=== PATIENT | female | born 1995 | race Caucasian/White ===

== ENCOUNTER 2016-05-18 11:01 | Emergency (ER) | payer OTHER ==
[2016-05-18 11:30] LABS: BILIRUBIN,URINE NEGATIVE (NEGATIVE)
[2016-05-18 11:32] LABS: UA w/ MICROSCOPIC CHARGE YES
[2016-05-18 11:34] LABS: BASOPHILS # (AUTO) 0.1 10^3/uL (0.0-0.1); BASOPHILS % (AUTO) 0.7 %; EOSINOPHILS # (AUTO) 0.2 10^3/uL (0.0-0.7); HGB - HEMOGLOBIN 13.6 g/dL (12.0-16.0); LYMPHOCYTES # (AUTO) 2.5 10^3/uL (1.5-3.5); LYMPHOCYTES % (AUTO) 27.5 %; MEAN CORPUSCULAR HGB CONC 34.1 g/dL (32.0-36.0); MEAN CORPUSCULAR VOLUME 85.2 fL (81.0-99.0); MEAN PLATELET VOLUME 8.2 fL (7.9-10.8); MONOCYTES # (AUTO) 0.6 10^3/uL (0.0-1.0); MONOCYTES % (AUTO) 6.1 %; NEUTROPHILS # (AUTO) 5.9 10^3/uL (1.5-6.6); NEUTROPHILS % (AUTO) 63.7 %; RED CELL DISTRIBUTION WIDTH 12.9 % (12.0-15.0); UNCORRECTED WHITE BLOOD COUNT 9.3 x10^3/uL; WHITE BLOOD COUNT 9.3 x10^3/uL (4.8-10.8)
[2016-05-18 11:37] LABS: HCG UR QUAL NEGATIVE
[2016-05-18 11:39] LABS: UR CULTURE IF IND NOT INDICATED; WBC,URINE 0-3 /HPF (0-5)
--- NOTE | 2016-05-18 11:53 | ED Physician Documentation ---
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 and also at [facility] X 4 has had pelvic exam, blood work, urine, HCG, CT scan, and several sonograms CT neg for appy kidney stones, sono showed a complex right ovarian cyst pelvic neg for PID per records from [facility] to ER today because the pain has been waxing and waning and was severe today Review of Systems Constitutional: denies: Fever Cardiac: denies: Chest pain / pressure Respiratory: denies: Dyspnea GI: reports: Abdominal Pain : denies: Dysuria, Discharge, Vaginal bleeding Endocrine: denies: Easy bruising / bleeding PD PAST MEDICAL HISTORY - Past Medical History Cardiovascular: None Respiratory: None Neuro: None Endocrine/Autoimmune: None GI: None 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 - Past Surgical History Past Surgical History: No /SENIOR MILITARY ANALYST: Other - Present Medications Home Medications: Ambulatory Orders Medication Instructions Recorded Confirmed Ibuprofen 300 mg PO BID 05/18/16 05/18/16 Meloxicam 0 mg PO DAILY 05/18/16 05/18/16 Norgestimate-Ethinyl Estradiol 1 tab PO DAILY 05/18/16 05/18/16 [Ortho Tri-Cyclen Lo Tablet] oxyCODONE/ACET 5/325 [Percocet 5 1 tab PO Q4HR 05/18/16 05/18/16 mg/325 mg] traMADol [Ultram] 50 mg PO Q6H PRN #15 tablet 05/18/16 - Allergies Allergies/Adverse Reactions: Allergies Allergy/AdvReac Type Severity Reaction Status Date / Time latex Allergy Hives Verified 05/18/16 11:05 - Social History Does the pt smoke?: No Smoking Status: Never smoker Does the pt drink ETOH?: No Does the pt have substance abuse?: No - Immunizations Immunizations are current?: Yes - POLST Patient has POLST: No PD ED PE NORMAL - Vitals Vital signs reviewed: Yes - Neck Neck: Supple, no meningeal sign - Cardiac Cardiac: RRR - Respiratory Respiratory: No respiratory distress, Clear bilaterally - Abdomen Abdomen: Soft, Other (mild distension, TTP right low quad without rebound or guarding) - Derm Derm: Normal color - Extremities Extremities: No deformity - Neuro Neuro: Alert and oriented X 3 Results - Vitals Vitals: Vital Signs - 24 hr 05/18/16 05/18/16 11:03 12:33 Temperature 36.3 C L Heart Rate 70 66 Respiratory 18 16 Rate Blood Pressure 144/99 H 117/73 O2 Saturation 99 100 Oxygen O2 Source Room air - Labs Labs: Laboratory Tests 05/18/16 05/18/16 05/18/16 11:20 11:28 11:28 WBC 9.3 RBC 4.70 Hgb 13.6 Hct 40.0 MCV 85.2 MCH 29.0 MCHC 34.1 RDW 12.9 Plt Count 322 MPV 8.2 Neut # 5.9 Lymph # 2.5 Pershing # 0.6 Eos # 0.2 Baso # 0.1 Absolute Nucleated RBC 0.00 Nucleated RBCs 0.0 Sodium 135 Potassium 3.6 Chloride 104 Carbon Dioxide 24 Anion Gap 7.0 BUN 16 Creatinine 0.7 Estimated GFR (MDRD) 105 Glucose 94 Calcium 9.3 Total Bilirubin 0.4 AST 19 ALT 17 Alkaline Phosphatase 70 Total Protein 7.5 Albumin 4.8 Globulin 2.7 Albumin/Globulin Ratio 1.8 Lipase 30 Urine Color YELLOW Urine Clarity CLOUDY Urine pH 6.0 Ur Specific [place] >=1.030 H Urine Protein NEGATIVE Urine Glucose (UA) NEGATIVE Urine Ketones NEGATIVE Urine Occult Blood TRACE-LYSE Urine Nitrite NEGATIVE Urine Bilirubin NEGATIVE Urine Urobilinogen 0.2 (NORMAL) Ur Leukocyte Esterase NEGATIVE Urine RBC 6-10 H Urine WBC 0-3 Ur Squamous Epith Cells MOD Squamous H Urine Bacteria Rare Ur Microscopic Review INDICATED Urine Culture Comments NOT INDICATED Urine HCG, Qual NEGATIVE - Rads (name of study) sono Radiology: Prelim report reviewed (1.4 cm R hemorrhagic cyst s torsion, trace FF ) Departure - Departure Disposition: 01 Home, Self Care Clinical Impression: Ruptured cyst of ovary Condition: Good Instructions: Cyst Ruptured Ovarian Tx Follow-Up: Romy Kearns DO [Provider Admit Priv/Credential] - Prescriptions: traMADol [Ultram] 50 mg PO Q6H PRN #15 tablet PRN Reason: Severe Pain Comments: The cyst is much smaller today and the fluid is reabsorbing. I reviewed your records from [facility] and you had a CT scan there that showed a normal appendix and no kidney stones - and you also had a pelvic exam to check for any infections causing the pain. I have referred you to a SENIOR MILITARY ANALYST specialist and prescribed tramadol for the pain. T Forms: Activity restrictions
[2016-05-18 12:08] LABS: ALBUMIN/GLOBULIN RATIO 1.8 (1.0-2.2); BILIRUBIN,TOTAL 0.4 mg/dL (0.2-1.0); CALCIUM 9.3 mg/dL (8.5-10.3); CREATININE 0.7 mg/dL (0.4-1.0); POTASSIUM 3.6 mmol/L (3.5-5.0); TOTAL PROTEIN 7.5 g/dL (6.7-8.2)
[2016-05-18] MEDS ORDERED: KETOROLAC 60 MG/2 ML VIAL IM STA (12:24)
[2016-05-18] MEDS ORDERED: KETOROLAC 60 MG/2 ML VIAL ONE (12:31)
[2016-05-18 14:12] VITALS: BP 100/62
--- NOTE | 2016-05-18 16:00 | Ultrasound Report ---
PELVIC ULTRASOUND: 05/18/2016 CLINICAL INDICATION: Pain, question cyst rupture or torsion. TECHNIQUE: Transabdominal pelvic ultrasound performed for global evaluation. Transvaginal pelvic ultr asound performed for detailed evaluation. Real-time scanning performed and static images obtained wit h Doppler. FINDINGS: The uterus is retroverted, measuring 7.9 x 4.4 x 4.1 cm. The endometrial echo complex marvin ures 4 mm. No focal myometrial lesion is seen. The right ovary measures 3.5 x 3.3 x 3.2 cm, and conta ins an 1.4 cm hemorrhagic ovarian cyst. Normal ovarian flow is present. The left ovary measures 3.1 x 2.3 x 1.3 cm, and appears unremarkable. Normal ovarian flow is present. Trace free fluid is seen in the cul-de-sac, likely physiologic in a patient of this age. IMPRESSION: AN 1.4 CM HEMORRHAGIC RIGHT OVARIAN CYST. NO EVIDENCE OF OVARIAN TORSION. TRACE FREE FLU ID. JOB #: [id number] EXT JOB #:[id number]
== END 2016-05-18 14:00 | disposition home or self-care (01) ==
LOC: ED 11:01
DX: N83.201 Unspecified ovarian cyst, right side (principal)
CPT/HCPCS: 36415; 76830; 76856; 80053; 81001; 81003; 81025; 83690; 85025; 87086; 93975; 96372; 99283; 99284

== ENCOUNTER 2016-06-27 07:12 | Outpatient (CLI) | payer OTHER | END 2016-06-27 07:13 | disposition critical access hospital (66) | DX: R51 Headache (principal); R42 Dizziness and giddiness; R11.0 Nausea | CPT/HCPCS: A0425; A0429 ==

== ENCOUNTER 2016-06-27 07:30 | Emergency (ER) | payer OTHER ==
[2016-06-27] MEDS ORDERED: KETOROLAC 60 MG/2 ML VIAL IVP STA (08:44)
[2016-06-27] MEDS ORDERED: DEXAMETHASONE 10 MG/ML VIAL PO STA (08:44)
[2016-06-27] MEDS ORDERED: CHERRY SYRUP 10 ML UDC PO ONE (08:47)
[2016-06-27] MEDS ORDERED: DEXAMETHASONE 10 MG/ML VIAL ONE (08:47)
[2016-06-27] MEDS ORDERED: KETOROLAC 30 MG/ML VIAL ONE (08:47)
== END 2016-06-27 11:20 | disposition home or self-care (01) ==
DX: G44.209 Tension-type headache, unspecified, not intractable (principal); Z98.890 Other specified postprocedural states
CPT/HCPCS: 96374; 99284; A9270

== ENCOUNTER 2016-07-03 22:27 | Outpatient (CLI) | payer OTHER | END 2016-07-03 22:28 | disposition critical access hospital (66) | DX: R10.32 Left lower quadrant pain (principal) | CPT/HCPCS: A0425; A0427 ==

== ENCOUNTER 2016-07-03 22:45 | Emergency (ER) | payer OTHER ==
[2016-07-04] MEDS ORDERED: ONDANSETRON 4 MG/2 ML VIAL IVP STA (01:46)
[2016-07-04] MEDS ORDERED: MORPHINE 2 MG/ML SYRINGE IVP STA (01:46)
[2016-07-04] MEDS ORDERED: MORPHINE 2 MG/ML SYRINGE ONE (01:49)
[2016-07-04] MEDS ORDERED: ONDANSETRON 4 MG/2 ML VIAL ONE (01:49)
[2016-07-04] MEDS ORDERED: HYDROmorphone 1 MG/ML SYRINGE IVP STA (03:52)
[2016-07-04] MEDS ORDERED: HYDROmorphone 1 MG/ML SYRINGE ONE (03:59)
== END 2016-07-04 04:59 | disposition home or self-care (01) ==
DX: R10.32 Left lower quadrant pain (principal); N83.202 Unspecified ovarian cyst, left side
CPT/HCPCS: 36415; 76830; 76856; 80053; 83690; 85025; 93976; 96374; 96375; 99284; J1170

== ENCOUNTER 2016-07-07 00:29 | Emergency (ER) | payer OTHER ==
[2016-07-07] MEDS ORDERED: IOPAMIDOL-300 100 ML VIAL IVP ONE (03:59)
== END 2016-07-07 06:31 | disposition home or self-care (01) ==
DX: N83.292 Other ovarian cyst, left side (principal)
CPT/HCPCS: 36415; 74177; 81003; 81025; 85025; 99283; 99284; Q9967

== ENCOUNTER 2016-08-25 09:20 | Day surgery (SDC) | payer OTHER ==
[2016-08-25] MEDS ORDERED: CELECOXIB 100 MG CAPSULE PO ONE (09:22)
[2016-08-25] MEDS ORDERED: ACETAMINOPHEN 1,000 MG/100 ML 100 ML IV ONE (09:23)
[2016-08-25] MEDS ORDERED: SCOPOLAMINE PATCH TOP ONE (09:42)
[2016-08-25] MEDS ORDERED: LACTATED RINGERS 1,000 ML IV ONE (10:08)
[2016-08-25] MEDS ORDERED: LIDOCAINE-MPF 2% 5 ML VIAL IM ONE (11:03)
[2016-08-25] MEDS ORDERED: PROPOFOL 200 MG/20 ML VIAL IVP ONE (11:03)
[2016-08-25] MEDS ORDERED: ONDANSETRON 4 MG/2 ML VIAL IVP ONE (11:03)
[2016-08-25] MEDS ORDERED: MIDAZOLAM 2 MG/2 ML VIAL IVP ONE (11:03)
[2016-08-25] MEDS ORDERED: fentaNYL 100 MCG/2 ML VIAL IVP ONE (11:03)
[2016-08-25] MEDS ORDERED: DEXAMETHASONE 4 MG/ML VIAL IVP ONE (11:03)
[2016-08-25] MEDS ORDERED: MORPHINE PF 5 MG/10 ML AMP EPI ONE ×2 (11:47→12:20)
[2016-08-25] MEDS ORDERED: ROPIVACAINE 0.2% PF 10 ML VIAL EPI ONE ×2 (11:47→12:20)
[2016-08-25] MEDS ORDERED: BUPIVACAINE 0.5% PF 10 ML VIAL IM ONE ×2 (11:47)
[2016-08-25] MEDS ORDERED: EPINEPHrine 1 MG/ML AMP IVP ONE (11:48)
[2016-08-25] MEDS: HYDROmorphone 1 MG/ML SYRINGE ONE ×3 (13:00→13:15)
[2016-08-25] MEDS ORDERED: oxyCOD/ACETAMIN 5 MG/325 MG TABLET PO ONE (13:52)
[2016-08-25 14:12] VITALS: BP 133/68
--- NOTE | 2016-08-27 07:25 | OPERATIVE REPORT ---
DATE OF SURGERY: 08/25/2016 00:00:00 IDENTIFICATION NUMBER: [id number] OR ([id number] as stated at the end) OPERATIVE SURGEON: Commander Anthony Willard, [facility] N PREOPERATIVE DIAGNOSIS: Right knee fat pad syndrome. OPERATIVE DIAGNOSIS: Right knee fat pad syndrome and plica impingement. OPERATIVE PROCEDURE PERFORMED: Right knee arthroscopy with arthroscopic fat pad and medial plica resection. ANESTHESIA PROVIDER: Leonie Paz MD ANESTHESIA TECHNIQUE: General anesthesia via LMA with local injected into the incision sites. CIRCULATING NURSES: Jorden Reyna RN; and Ilya Lopez RN GLUE SIZE 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: Ms. Berta Johnson; additional photo technician Ms. Annette Reyna. START TIME: 1145 hours. CLOSE TIME: 1227 hours. INJECTED SUBSTANCES INCLUDED: Ropivacaine 0.2% with Duramorph morphine 5 mg/mL. Additional injected substances include Marcaine 0.5% plain. IV antibiotics - Ancef 2 grams. IV FLUIDS: 650 mL lactated Ringer's. ESTIMATED BLOOD LOSS: Less than 5 mL. PREOPERATIVE PREP: Hibiclens, followed by ChloraPrep applied to the exposed operative skin after draping. The patient did have MARIELOS hose and foot pump in place and functioning on the left lower extremity prior to induction of anesthesia. FINAL COUNTS: Correct. COMPLICATIONS: None. 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 The patient was initially seen, counseled, and treated by my partner, Dr. Chiu; however, due to her status, she has ask me to continue with the patient's care. After workup and the decision was made to take the patient to the operating room for fat pad resection after the patient was counseled as far as the risks, benefits, alternatives, and expectations to both operative versus nonoperative management. The patient preferred to undergo surgery. On the day of surgery, she identified the operative site to be her right knee, which was initialed by the operative surgeon. She located the area of the pain to be both on the medial and lateral aspect of the patellar tendon and joint line. She then had a negative urine test, was taken back to the operating room, placed in the supine position and, after adequate anesthetic control with general anesthesia via LMA, she had her bony prominences well- padded and then had a tourniquet placed to the right upper thigh. The patient's right lower extremity then underwent examination under anesthesia , which revealed full passive range of motion, stable anterior and posterior drawer, stable Loretta's, negative pivot shift or glide, negative stress at 30 and 90 degrees of varus valgus. The patient then underwent a Hibiclens prep and standard sterile draping, followed by a surgical pause to confirm the proper patient, procedure, operative site, position, prophylactic antibiotics, and surgical initials in accordance with the [place] Protocol Procedure Verification. Following this, additional ChloraPrep was applied to the exposed operative skin and allowed to dry for 3 minutes. Bony landmarks were outlined with a skin marker. The surgery began with a stab incision over the anterolateral knee and insertion of the arthroscope into the medial aspect of the suprapatellar pouch, where a medial plica was identified. The medial gutter was then entered. There was some mild synovitis and loose bodies. The area of the plica that had been rubbing over the medial shoulder of the trochlea was identified. The medial compartment was then entered under a valgus stress. Under direct visualization, a spinal needle was inserted to establish location of the anteromedial portal The probe was then inserted, and probing the medial meniscus revealed a normal- appearing meniscus. The knee was taken through a full range of motion. There was no sign of medial femoral condyle or medial tibial plateau chondromalacia. The femoral notch was entered. There was no sign of ACL tear or insufficiency. The lateral compartment was entered under a figure 4 position. There were no signs of lateral meniscus tear or insufficiency. The knee was taken through a full range of motion. There were no signs of lateral femoral condyle or lateral tibial plateau chondromalacia. The posterolateral corner was then entered and visualized. There were no signs of posterolateral corner injury. Under direct visualization, the medial plica was then resected. Further fat pad resection was performed in order to enter the patellofemoral articulation, revealing a normal-appearing medial, central, and lateral patellar chondral facet surface and patellofemoral tracking and articulation. The spinal needle was then placed through the area the patient had marked as her pain sites and her fat pad. This area was then resected down to the posterior fibers of the patellar tendon. The instruments were then removed from the patient's knee, and fluid was allowed to extravasate out. The wounds were then closed with 3-0 Monocryl. The knee was then injected with 5 mg of Duramorph morphine and 5 mL of 0.2% ropivacaine. The wounds were then covered with Mastisol, Steri-Strips, Xeroform , sterile plain gauze, sterile Webril, and David bandage from mid foot to mid thigh, followed by a cold therapy cuff. The patient's family, her mother and grandmother, were met in the surgical waiting room and advised of the intraoperative findings, procedure performed, and postop instructions. I am just being informed now that due to postoperative pain, Anesthesia is performing a femoral nerve block on this patient in the recovery room. Edited and electronically signed: CDR Anthony Willard MC, USN [id number] JOB #: [id number] EXT JOB #:[id number] SAMI
== END 2016-08-25 09:21 | disposition home or self-care (01) ==
LOC: SDS 09:20
PROVIDERS: ATTEND Orthopaedic Surgery
PROC: 0SBC4ZZ Excision of Right Knee Joint, Percutaneous Endoscopic Approach (ICD-10-PCS; principal; 2016-08-25 12:15)
DX: M79.4 Hypertrophy of (infrapatellar) fat pad (principal); M25.861 Other specified joint disorders, right knee
CPT/HCPCS: 29875; 84703; A9270; J0131; J1170; J3490; J7120

== ENCOUNTER 2016-10-13 06:53 | Emergency (ER) | payer OTHER ==
[2016-10-13 07:00] VITALS: BP 123/80
--- NOTE | 2016-10-13 07:19 | ED Physician Documentation ---
PD HPI ABD PAIN - Stated complaint Stated Complaint: POST OP CHECK/FEMALE - Chief complaint Chief Complaint: Abd Pain - History obtained from History obtained from: Patient - History of Present Illness Timing - onset: Yesterday Quality: Aching - Additional information Additional information: This patient is a 21-year-old female with a history of endometriosisStatus post laparoscopic lysis of adhesionsYesterday. She presents with a chief complaint of inability to urinate and also has lower urinary symptoms of dysuria, hesitancy, and frequency.She also complains of abdominal bruising near her umbilicus. She denies any complaints of generalized abdominal pain, nausea, vomiting, constipation diarrhea. There is no complaints of chest pain or shortness of breath. She is currently taking Percocet and ibuprofen for pain. She is unsure whether they placed a urinary catheter during the procedure yesterday. She normally does not have any difficulty urinating and had no difficulty prior to the surgery. 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 : Other HEENT: Other Musculoskeletal: Other Derm: None - Past Surgical History Past Surgical History: Yes Ortho: Arthroscopic surgery /TRANSMISSION ASSEMBLER: Other - Present Medications Home Medications: Ambulatory Orders Medication Instructions Recorded Confirmed Phenazopyridine HCl [Pyridium] 200 mg PO TID PRN #10 tablet 10/13/16 oxyCODONE/ACET 5/325 [Percocet 5 1 - 2 tab PO Q4HR PRN 10/13/16 10/13/16 mg/325 mg] - Allergies Allergies/Adverse Reactions: Allergies Allergy/AdvReac Type Severity Reaction Status Date / Time latex Allergy Hives Verified 08/08/16 11:59 tramadol Allergy Unknown Verified 08/25/16 09:32 - Social History Does the pt smoke?: No Smoking Status: Never smoker Does the pt drink ETOH?: No Does the pt have substance abuse?: No - Immunizations Immunizations are current?: Yes - POLST Patient has POLST: No PD ED PE NORMAL - General General: Alert and oriented X 3, No acute distress, Well developed/nourished - HEENT HEENT: Atraumatic, PERRL - Neck Neck: Supple, no meningeal sign - Cardiac Cardiac: RRR, No murmur - Respiratory Respiratory: No respiratory distress - Abdomen Abdomen: Normal bowel sounds, Non tender, Non distended, No organomegaly, Other (Superficial abdominal bruising without hematomas) - Derm Derm: Warm and dry - Neuro Neuro: Alert and oriented X 3 - Psych Psych: Normal mood, Normal affect Results - Vitals Vitals: Vital Signs - 24 hr 10/13/16 06:57 Temperature 36.7 C Heart Rate 70 Respiratory 16 Rate Blood Pressure 123/80 O2 Saturation 98 Oxygen O2 Source Room air - Labs Labs: Laboratory Tests 10/13/16 07:30 Urine Color YELLOW Urine Clarity CLEAR Urine pH 6.5 Ur Specific [place] 1.010 Urine Protein NEGATIVE Urine Glucose (UA) NEGATIVE Urine Ketones NEGATIVE Urine Occult Blood TRACE-LYSE Urine Nitrite NEGATIVE Urine Bilirubin NEGATIVE Urine Urobilinogen 0.2 (NORMAL) Ur Leukocyte Esterase NEGATIVE Ur Microscopic Review NOT INDICATED Urine Culture Comments NOT INDICATED PD MEDICAL DECISION MAKING - ED course Complexity details: reviewed old records, reviewed results, re-evaluated patient , d/w patient ED course: Patient is well-appearing 21-year-old female presents with lower urinary symptoms status post laparoscopic lysis of adhesions yesterday. She is otherwise doing well she has mild increase urine volume on bladder scanning of 400 cc but has demonstrated the ability to urinate with some difficulty. Urine was tested and appears normal. We will add Pyridium to help with some of her lower urinary symptoms that are probably more related to trauma from instrumentation. Departure - Departure Disposition: 01 Home, Self Care Clinical Impression: Dysuria Condition: Good Instructions: ED Dysuria Uncertain Cause Follow-Up: FRANCIS PEDRO [Primary Care Provider] - Within 1 week Prescriptions: Phenazopyridine HCl [Pyridium] 200 mg PO TID PRN #10 tablet PRN Reason: dysuria Forms: Activity restrictions
[2016-10-13] MEDS ORDERED: PHENAZOPYRIDINE 100 MG TABLET PO STA (07:43)
[2016-10-13] MEDS ORDERED: PHENAZOPYRIDINE 100 MG TABLET PO ONE (07:52)
[2016-10-13 08:07] LABS: BILIRUBIN,URINE NEGATIVE (NEGATIVE); PH,URINE 6.5 PH (5.0-7.5)
[2016-10-13 08:12] LABS: UA CHARGE (STRIP ONLY) YES; UR CULTURE IF IND NOT INDICATED
== END 2016-10-13 08:33 | disposition home or self-care (01) ==
LOC: ED 06:53
DX: R30.0 Dysuria (principal); Z98.890 Other specified postprocedural states
CPT/HCPCS: 51798; 81003; 99283; A9270; 81001; 87086

== ENCOUNTER 2016-10-14 21:43 | Emergency (ER) | payer OTHER ==
--- NOTE | 2016-10-14 22:24 | ED Physician Documentation ---
PD HPI ABD PAIN - Stated complaint Stated Complaint: FEMALE - Chief complaint Chief Complaint: General - History obtained from History obtained from: Patient - History of Present Illness Timing - onset: How many days ago (2) Timing - duration: Days (2) Timing - details: Abrupt onset (she had laparoscopic surgery for pelvic pain eval with Dx of endometriosis and has some scar tissue scraping and ? endometrioma ablation done at that time. There was bruising infraumbilical. She is having pain mainly at bruising area. Some nausea but no vomiting. Had had 5 percocet and has taken them. No other meds.) Quality: Aching, Stabbing, Pain Location: Periumbilical Improved by: Laying still. No: Eating Worsened by: Moving, Palpation. No: Eating, Breathing Associated symptoms: Nausea, Loss of appetite. No: Fever, Vomiting, Diarrhea, Constipation, Dysuria, Hematuria Similar symptoms before: Has not had sx before Recently seen: Emergency Dept (yesterday with some urinary hesitancy and had some retention 400 ml but voided without greenwood and was doing okay. She feels she is urinating okay today.), Surgery (laparoscopic in [place] by SECOND SHIFT SUPERVISOR 2 days ago, see above.) Review of Systems Constitutional: reports: Myalgias. denies: Fever, Chills Nose: denies: Rhinorrhea / runny nose, Congestion Throat: denies: Sore throat Cardiac: denies: Chest pain / pressure Respiratory: denies: Dyspnea GI: reports: Nausea. denies: Vomiting, Diarrhea : reports: Hesitancy (had some trouble urinating yesterday and had bladder scanner showing 400 ml, but then voided okay here in ED.), Vaginal bleeding ( mild, with some clear/mucous component, since the surgery). 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), Ovarian cysts : Other HEENT: Other Musculoskeletal: Other Derm: None - Past Surgical History Past Surgical History: Yes Ortho: Arthroscopic surgery /SECOND SHIFT SUPERVISOR: Other - Present Medications Home Medications: Ambulatory Orders Medication Instructions Recorded Confirmed Phenazopyridine HCl [Pyridium] 200 mg PO TID PRN #10 tablet 10/13/16 oxyCODONE/ACET 5/325 [Percocet 5 1 - 2 tab PO Q4HR PRN 10/13/16 10/13/16 mg/325 mg] Naproxen 375 mg PO BID #20 tablet 10/15/16 Oxycodone HCl/Acetaminophen 1 each PO Q6H PRN #15 tablet 10/15/16 [Percocet 5-325 mg Tablet] - Allergies Allergies/Adverse Reactions: Allergies Allergy/AdvReac Type Severity Reaction Status Date / Time latex Allergy Hives Verified 08/08/16 11:59 tramadol Allergy Unknown Verified 08/25/16 09:32 - Social History Does the pt smoke?: No Smoking Status: Never smoker Does the pt drink ETOH?: No Does the pt have substance abuse?: No - Immunizations Immunizations are current?: Yes - POLST Patient has POLST: No PD ED PE NORMAL - Vitals Vital signs reviewed: Yes - General General: Alert and oriented X 3, No acute distress, Well developed/nourished - Neck Neck: Supple, no meningeal sign, No adenopathy - Cardiac Cardiac: RRR, No murmur - Respiratory Respiratory: Clear bilaterally - Abdomen Abdomen: Normal bowel sounds, Soft, Non distended, No organomegaly, Other (the scope sites all appear okay without signs of infection. The infraumbilical site has bruising below that got bigger in area since yesterday. ) Results - Vitals Vitals: Vital Signs - 24 hr 10/14/16 10/15/16 21:49 00:52 Temperature 36.7 C Heart Rate 79 72 Respiratory 18 16 Rate Blood Pressure 142/92 H 135/90 H O2 Saturation 99 99 Oxygen O2 Source Room air - Labs Labs: Laboratory Tests 10/14/16 10/14/16 23:29 23:45 WBC 11.3 H RBC 4.68 Hgb 13.8 Hct 40.9 MCV 87.4 MCH 29.6 MCHC 33.8 RDW 13.2 Plt Count 345 MPV 7.4 L Neut # 5.2 Lymph # 5.0 H [place] # 0.8 Eos # 0.2 Baso # 0.1 Absolute Nucleated RBC 0.01 Nucleated RBCs 0.0 Urine Color YELLOW Urine Clarity CLEAR Urine pH 7.5 Ur Specific [place] 1.015 Urine Protein NEGATIVE Urine Glucose (UA) NEGATIVE Urine Ketones NEGATIVE Urine Occult Blood LARGE H Urine Nitrite NEGATIVE Urine Bilirubin NEGATIVE Urine Urobilinogen 0.2 (NORMAL) Ur Leukocyte Esterase NEGATIVE Urine RBC 0-5 Urine WBC 0-3 Ur Squamous Epith Cells FEW Squamous Urine Bacteria Rare Ur Microscopic Review INDICATED Urine Culture Comments NOT INDICATED PD MEDICAL DECISION MAKING - ED course Complexity details: reviewed results, considered differential (postoperative bruising infraumbilical, but bedside U/S I did not see a hematoma per se, nor any pelvic free fluid. Presume tender from the surgery and bruising. No signs of infection. WBC slight elevated but no fever and skin/wounds do not look infected. Will add NSAID and Rx more pain emds. She is only 2 days post- procedure, so reasonable perhaps to still be hurting. ), d/w patient Departure - Departure Disposition: 01 Home, Self Care Clinical Impression: Postoperative wound hematoma, Postoperative abdominal pain Condition: Stable Record reviewed to determine appropriate education?: Yes Instructions: ED Post Op Pain, ED Wound Check Post Op No Infec Follow-Up: FRANCIS PEDRO [Primary Care Provider] - Prescriptions: Naproxen 375 mg PO BID #20 tablet Oxycodone HCl/Acetaminophen [Percocet 5-325 mg Tablet] 1 each PO Q6H PRN #15 tablet PRN Reason: Pain Comments: At this point, the area does not seem infected. Presume inflammation and pain from the bruising. I did not see a blood collection/hematoma per se that would need draining/etc. Naproxen twice daily. Add Tylenol or Percocet as needed for pain. Recheck in 2-3 days with PMD. Return if redness, fever, vomiting ( increased bruising size is okay). Discharge Date/Time: 10/15/16 00:54
[2016-10-14] MEDS ORDERED: oxyCOD/ACETAMIN 5 MG/325 MG TABLET PO STA (23:04)
[2016-10-14] MEDS ORDERED: NAPROXEN 250 MG TABLET PO STA (23:05)
[2016-10-14] MEDS ORDERED: oxyCOD/ACETAMIN 5 MG/325 MG TABLET PO ONE (23:08)
[2016-10-14] MEDS ORDERED: NAPROXEN 250 MG TABLET PO ONE (23:08)
[2016-10-14 23:36] LABS: BASOPHILS # (AUTO) 0.1 10^3/uL (0.0-0.1); BASOPHILS % (AUTO) 0.9 %; EOSINOPHILS # (AUTO) 0.2 10^3/uL (0.0-0.7); EOSINOPHILS % (AUTO) 2.1 %; HCT - HEMATOCRIT 40.9 % (37.0-47.0); HGB - HEMOGLOBIN 13.8 g/dL (12.0-16.0); LYMPHOCYTES % (AUTO) 44.4 %; MEAN CORPUSCULAR HEMOGLOBIN 29.6 pg (27.0-31.0); MEAN CORPUSCULAR HGB CONC 33.8 g/dL (32.0-36.0); MEAN CORPUSCULAR VOLUME 87.4 fL (81.0-99.0); MEAN PLATELET VOLUME 7.4 fL (7.9-10.8); MONOCYTES # (AUTO) 0.8 10^3/uL (0.0-1.0); MONOCYTES % (AUTO) 6.7 %; NEUTROPHILS # (AUTO) 5.2 10^3/uL (1.5-6.6); NEUTROPHILS % (AUTO) 45.9 %; RED BLOOD COUNT 4.68 10^6/uL (4.20-5.40); RED CELL DISTRIBUTION WIDTH 13.2 % (12.0-15.0); UNCORRECTED WHITE BLOOD COUNT 11.3 x10^3/uL; WHITE BLOOD COUNT 11.3 x10^3/uL (4.8-10.8)
[2016-10-14 23:50] LABS: BILIRUBIN,URINE NEGATIVE (NEGATIVE); PH,URINE 7.5 PH (5.0-7.5)
[2016-10-15 00:08] LABS: UA w/ MICROSCOPIC CHARGE YES; WBC,URINE 0-3 /HPF (0-5)
[2016-10-15 00:09] LABS: UR CULTURE IF IND NOT INDICATED
[2016-10-15] MEDS ORDERED: oxyCODONE/ACET 5/325 Prepack 4 PO STA (00:39)
[2016-10-15] MEDS ORDERED: oxyCODONE/ACET 5/325 Prepack 4 PO ONE (00:41)
[2016-10-15 00:52] VITALS: BP 135/90
== END 2016-10-15 00:54 | disposition home or self-care (01) ==
LOC: ED 21:43
DX: N99.840 Postprocedural hematoma of a genitourinary system organ or structure following a genitourinary system procedure (principal); G89.18 Other acute postprocedural pain; N80.9 Endometriosis, unspecified
CPT/HCPCS: 36415; 81001; 85025; 99283; 99284; A9270; 81003; 87086

== ENCOUNTER 2016-11-02 12:10 | Emergency (ER) | payer OTHER ==
[2016-11-02] MEDS ORDERED: ACETAMINOPHEN 1,000 MG/100 ML 100 ML IV STA (12:36)
[2016-11-02] MEDS ORDERED: KETOROLAC 60 MG/2 ML VIAL IVP STA (12:36)
--- NOTE | 2016-11-02 12:39 | ED Physician Documentation ---
History of Present Illness - Stated complaint Stated Complaint: ABD PAIN - Chief complaint Chief Complaint: Abd Pain - Additonal information Additional information: hx from pt 21 f denies preg LMP now followed by CATHERINE BANKER MASON had surgery at [facility] 3 weeks ago (laparoscopic, dx endometriosis) was seen here post op twice for pain and urinary retention and bruising return to [facility] again to day for severe pelvic pain and unable to urinate no vag dc no fever has not called her BANKER MASON about this today Review of Systems Constitutional: denies: Fever, Chills Throat: denies: Sore throat Cardiac: denies: Chest pain / pressure Respiratory: denies: Dyspnea GI: reports: Abdominal Pain. denies: Nausea, Vomiting, Diarrhea : reports: LMP (now), Vaginal bleeding Endocrine: denies: Easy bruising / bleeding Immunocompromised: denies: Immunocompromised PD PAST MEDICAL HISTORY - Past Medical History Cardiovascular: None Respiratory: None Neuro: None Endocrine/Autoimmune: None GI: None BANKER MASON: Endometriosis, Ovarian cysts : Other HEENT: Other Musculoskeletal: Other Derm: None Other Past Medical History: TMJ syndrome - Past Surgical History Past Surgical History: Yes Ortho: Arthroscopic surgery /BANKER MASON: Other - Present Medications Home Medications: Ambulatory Orders Medication Instructions Recorded Confirmed Indomethacin [Indocin] 25 mg PO BIDWM #20 capsule 11/02/16 - Allergies Allergies/Adverse Reactions: Allergies Allergy/AdvReac Type Severity Reaction Status Date / Time latex Allergy Hives Verified 08/08/16 11:59 tramadol Allergy Unknown Verified 08/25/16 09:32 - Social History Does the pt smoke?: No Smoking Status: Never smoker Does the pt drink ETOH?: No Does the pt have substance abuse?: No - Immunizations Immunizations are current?: Yes - POLST Patient has POLST: No PD ED PE NORMAL - Vitals Vital signs reviewed: Yes - Cardiac Cardiac: RRR - Respiratory Respiratory: No respiratory distress, Clear bilaterally - Abdomen Abdomen: Soft, Other (TTP lower abd s rebound or guarding, surgical incisions healing well) Results - Vitals Vitals: Vital Signs - 24 hr 11/02/16 11/02/16 12:12 14:10 Temperature 36.0 C L Heart Rate 80 63 Respiratory 18 16 Rate Blood Pressure 145/106 H 123/64 O2 Saturation 99 100 Oxygen O2 Source Room air - Labs Labs: Laboratory Tests 11/02/16 11/02/16 11/02/16 12:35 12:35 13:45 WBC 11.7 H RBC 4.76 Hgb 14.0 Hct 41.3 MCV 86.8 MCH 29.4 MCHC 33.8 RDW 13.3 Plt Count 346 MPV 8.1 Neut # 7.6 H Lymph # 3.0 Page # 0.8 Eos # 0.2 Baso # 0.1 Absolute Nucleated RBC 0.00 Nucleated RBCs 0.0 Sodium 136 Potassium 3.5 Chloride 103 Carbon Dioxide 26 Anion Gap 7.0 BUN 14 Creatinine 0.9 Estimated GFR (MDRD) 78 L Glucose 92 Calcium 9.3 Total Bilirubin 0.5 AST 103 H ALT 52 Alkaline Phosphatase 79 Total Protein 7.1 Albumin 4.5 Globulin 2.6 Albumin/Globulin Ratio 1.7 Lipase 19 L Urine Color YELLOW Urine Clarity CLEAR Urine pH 6.0 Ur Specific [place] 1.020 Urine Protein NEGATIVE Urine Glucose (UA) NEGATIVE Urine Ketones 15 H Urine Occult Blood MODERATE H Urine Nitrite NEGATIVE Urine Bilirubin NEGATIVE Urine Urobilinogen 0.2 (NORMAL) Ur Leukocyte Esterase NEGATIVE Urine RBC 11-25 H Urine WBC 0-3 Ur Squamous Epith Cells MOD Squamous H Urine Bacteria Rare Urine Mucus Few Strands Ur Microscopic Review INDICATED Urine Culture Comments NOT INDICATED Urine HCG, Qual NEGATIVE - Rads (name of study) pelvic sono Radiology: See rad report (mod fluid, kristopher ovarian follicles, nl ovarian flow, nl uterus) Departure - Departure Disposition: 01 Home, Self Care Clinical Impression: Pelvic pain, Endometriosis Condition: Good Instructions: ED Endometritis Non Obstetric Prescriptions: Indomethacin [Indocin] 25 mg PO BIDWM #20 capsule Comments: Your labs and urine tests were fine The ultrasound did not show any ovarian cysts. There was a littl bit more than normal fluid in your pelvis - it does not look like blood, this may be due to your recent surgery or due to your endometriosis Recommend a NSAID for pain - you can try indocin as it is sometimes more effective than motrin And please follow up with your specialist at [facility] within the next week as he/she will want to know if you are having problems after surgery Forms: Activity restrictions
[2016-11-02 12:55] LABS: BASOPHILS # (AUTO) 0.1 10^3/uL (0.0-0.1); EOSINOPHILS # (AUTO) 0.2 10^3/uL (0.0-0.7); EOSINOPHILS % (AUTO) 1.7 %; HCT - HEMATOCRIT 41.3 % (37.0-47.0); LYMPHOCYTES % (AUTO) 25.9 %; MEAN CORPUSCULAR HEMOGLOBIN 29.4 pg (27.0-31.0); MEAN CORPUSCULAR HGB CONC 33.8 g/dL (32.0-36.0); MEAN CORPUSCULAR VOLUME 86.8 fL (81.0-99.0); MEAN PLATELET VOLUME 8.1 fL (7.9-10.8); MONOCYTES # (AUTO) 0.8 10^3/uL (0.0-1.0); MONOCYTES % (AUTO) 6.5 %; NEUTROPHILS # (AUTO) 7.6 10^3/uL (1.5-6.6); NEUTROPHILS % (AUTO) 64.9 %; RED BLOOD COUNT 4.76 10^6/uL (4.20-5.40); RED CELL DISTRIBUTION WIDTH 13.3 % (12.0-15.0); UNCORRECTED WHITE BLOOD COUNT 11.7 x10^3/uL; WHITE BLOOD COUNT 11.7 x10^3/uL (4.8-10.8)
[2016-11-02 13:05] LABS: ALBUMIN/GLOBULIN RATIO 1.7 (1.0-2.2); BILIRUBIN,TOTAL 0.5 mg/dL (0.2-1.0); CALCIUM 9.3 mg/dL (8.5-10.3); CREATININE 0.9 mg/dL (0.4-1.0); POTASSIUM 3.5 mmol/L (3.5-5.0); TOTAL PROTEIN 7.1 g/dL (6.7-8.2)
[2016-11-02 13:51] LABS: BILIRUBIN,URINE NEGATIVE (NEGATIVE)
[2016-11-02 13:56] LABS: HCG UR QUAL NEGATIVE; UA w/ MICROSCOPIC CHARGE YES
[2016-11-02 14:02] LABS: UR CULTURE IF IND NOT INDICATED; WBC,URINE 0-3 /HPF (0-5)
[2016-11-02 14:10] VITALS: BP 123/64
--- NOTE | 2016-11-02 17:15 | Ultrasound Report ---
PELVIC ULTRASOUND: 11/02/2016 CLINICAL INDICATION: Severe pelvic pain, history of recent laparoscopic surgery. TECHNIQUE: Transabdominal pelvic ultrasound performed for global evaluation. Transvaginal pelvic ul trasound performed for detailed evaluation. Real-time scanning performed with Doppler and static daniel ges obtained. The uterus is retroverted, measuring 7.1 x 4.7 x 3.2 cm. The endometrial echo complex measures 8 mm. No focal myometrial lesion is present. The right ovary measures 4.7 x 3.2 x 3.0 cm, and demonstrates small follicles. The left ovary measur es 3.8 x 1.9 x 1.7 cm, and demonstrates small follicles. Both ovaries demonstrate normal flow. A mo derate amount of free fluid is noted in the cul-de-sac. IMPRESSION: MODERATE AMOUNT OF FREE FLUID IN THE CUL-DE-SAC. NORMAL BILATERAL OVARIAN FLOW, WITH MU LTIPLE BILATERAL FOLLICLES. JOB #: [id number] EXT JOB #:[id number]
== END 2016-11-02 15:19 | disposition home or self-care (01) ==
LOC: ED 12:10
DX: R10.2 Pelvic and perineal pain (principal); N80.9 Endometriosis, unspecified; Z98.890 Other specified postprocedural states; Z87.42 Personal history of other diseases of the female genital tract
CPT/HCPCS: 36415; 51798; 76830; 76856; 80053; 81001; 81025; 83690; 85025; 93975; 96365; 96375; 99283; J0131; 81003; 87086

== ENCOUNTER 2016-12-19 21:30 | Emergency (ER) | payer OTHER ==
[2016-12-19] MEDS ORDERED: HYDROmorphone 1 MG/ML SYRINGE IM STA (22:19)
--- NOTE | 2016-12-19 22:21 | ED Physician Documentation ---
History of Present Illness - Stated complaint Stated Complaint: MOUTH BLEED - Chief complaint Chief Complaint: General - History obtained from History obtained from: Patient - History of Present Illness Timing: Other (She had a left-sided condylotomy yesterday for TMJ by Dr. Mckeon in [place]. 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, Ovarian cysts : Other HEENT: Other Musculoskeletal: Other Derm: None - Past Surgical History Past Surgical History: Yes Ortho: Knee replacement, Arthroscopic surgery /INVESTOR RELATIONS ANALYST: Other - Present Medications Home Medications: Ambulatory Orders Medication Instructions Recorded Confirmed Acetaminophen [Children's 30 ml PO DAILY 12/19/16 12/19/16 Acetaminophen] Amoxicillin/Potassium Clav 1 applic PO DAILY 12/19/16 12/19/16 [Amox-Clav 250-62.5 mg/5 ml Aubrie] Bismuth Subsalicylate 1 tab PO DAILY 12/19/16 12/19/16 [Pepto-Bismol] Ibuprofen 30 ml PO Q6H 12/19/16 12/19/16 Oxycodone HCl 15 ml PO Q4H 12/19/16 12/19/16 PrednisoLONE [Prelone] 20 ml PO DAILY #100 ml 12/19/16 - Allergies Allergies/Adverse Reactions: Allergies Allergy/AdvReac Type Severity Reaction Status Date / Time latex Allergy Hives Verified 12/19/16 21:52 tramadol Allergy Unknown Verified 12/19/16 21:52 - Social History Does the pt smoke?: No Smoking Status: Never smoker Does the pt drink ETOH?: No Does the pt have substance abuse?: No - Immunizations Immunizations are current?: Yes - POLST Patient has POLST: No PD ED PE NORMAL - Vitals Vital signs reviewed: Yes - General General: Alert and oriented X 3, No acute distress - HEENT HEENT: Other (She is pretty swollen over the left jaw and her jaws wired shut. Intraorally I do not see any bleeding or abnormality.) - Neck Neck: Supple, no meningeal sign, No bony TTP - Neuro Neuro: Alert and oriented X 3, Normal speech - Psych Psych: Normal mood, Normal affect Results - Vitals Vitals: Vital Signs - 24 hr 12/19/16 21:49 Temperature 36.8 C Heart Rate 58 L Respiratory 16 Rate Blood Pressure 124/83 H O2 Saturation 99 Oxygen O2 Source Room air PD MEDICAL DECISION MAKING - ED course ED course: I spoke with her oral surgeon by phone who recommended wrapping her face with a pressure dressing which was done and also starting her on steroids. She will see him tomorrow. Departure - Departure Disposition: 01 Home, Self Care Clinical Impression: Post-operative pain Condition: Good Record reviewed to determine appropriate education?: Yes Prescriptions: PrednisoLONE [Prelone] 20 ml PO DAILY #100 ml Comments: You can take 20 mL of liquid oxycodone every 6 hours as needed for pain. Return if worse. Follow-up with Dr. Mckeon tomorrow. Your blood pressure was elevated today on check into the emergency department. This does not mean that you have hypertension, it is a common phenomenon to come to the emergency department and have elevated blood pressure. I recommend that she see your primary care physician within the week to have it rechecked when you are feeling better.
[2016-12-19] MEDS ORDERED: DEXAMETHASONE 10 MG/ML VIAL PO STA (22:30)
[2016-12-19] MEDS ORDERED: HYDROmorphone 1 MG/ML SYRINGE ONE (22:34)
[2016-12-19] MEDS ORDERED: DEXAMETHASONE 10 MG/ML VIAL ONE (22:35)
[2016-12-19 22:55] VITALS: BP 114/77
== END 2016-12-19 23:00 | disposition home or self-care (01) ==
LOC: ED 21:30
DX: G89.18 Other acute postprocedural pain (principal); Z96.659 Presence of unspecified artificial knee joint
CPT/HCPCS: 96372; 99283; J1170

== ENCOUNTER 2016-12-20 22:37 | Emergency (ER) | payer OTHER ==
--- NOTE | 2016-12-21 01:30 | ED Physician Documentation ---
History of Present Illness - Stated complaint Stated Complaint: MOUTH PX - Chief complaint Chief Complaint: General - History obtained from History obtained from: Patient - History of Present Illness Timing: Today Pain level now: 8 Worsened by: palpation - Additonal information Additional information: underwent OMFS procedure few days ago for TMJ (left), presented to ED last night for increasing pain and swelling, followed up with OMFS today, had xrays and rx changed from liquid oxycodone to liquid hydromorphone. she presents at this time due to increasing swelling and pain left jaw which is not adequately controlled by her liquid hydromorphone. 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, Ovarian cysts : Other HEENT: Other Musculoskeletal: Other Derm: None - Past Surgical History Past Surgical History: Yes Ortho: Knee replacement, Arthroscopic surgery /SPRING REPAIRER HELPER HAND: Other - Present Medications Home Medications: Ambulatory Orders Medication Instructions Recorded Confirmed Acetaminophen [Children's 30 ml PO DAILY 12/19/16 12/20/16 Acetaminophen] Amoxicillin/Potassium Clav 1 applic PO DAILY 12/19/16 12/20/16 [Amox-Clav 250-62.5 mg/5 ml Aubrie] Bismuth Subsalicylate 1 tab PO DAILY 12/19/16 12/20/16 [Pepto-Bismol] Ibuprofen 30 ml PO Q6H 12/19/16 12/20/16 Oxycodone HCl 15 ml PO Q4H 12/19/16 12/20/16 PrednisoLONE [Prelone] 20 ml PO DAILY #100 ml 12/19/16 12/20/16 - Allergies Allergies/Adverse Reactions: Allergies Allergy/AdvReac Type Severity Reaction Status Date / Time latex Allergy Hives Verified 12/20/16 22:47 tramadol Allergy Unknown Verified 12/20/16 22:47 - Social History Does the pt smoke?: No Smoking Status: Never smoker Does the pt drink ETOH?: No Does the pt have substance abuse?: No - Immunizations Immunizations are current?: Yes - POLST Patient has POLST: No PD ED PE NORMAL - Vitals Vital signs reviewed: Yes - General General: Alert and oriented X 3, No acute distress, Well developed/nourished - HEENT HEENT: Moist mucous membranes, Other (maxillo-mandibular fixation device and wires in place) - Neck Neck: Supple, no meningeal sign PD ED PE EXPANDED - HEENT HEENT: Other (mild swelling left mandible at body and angle, as well as along proximal and mid ramus. there is no fluctuance. there is milder swelling on right mandibular ramus, as well. there is faint, poorly marginated erythema bilaterally along mandibular rami. ) Results - Vitals Vitals: Vital Signs - 24 hr 12/21/16 12/21/16 02:59 03:27 Temperature 36.4 C L Heart Rate 52 L 52 L Respiratory 16 16 Rate Blood Pressure 116/82 H 124/82 H O2 Saturation 98 98 Oxygen O2 Source Room air PD MEDICAL DECISION MAKING - ED course Complexity details: reviewed old records, re-evaluated patient, considered differential, d/w patient, d/w family ED course: given 1mg IM dilaudid, 4mg IM zofran. several calls were placed to Dr. [place] Mckeon ([facility]), and messages were left requesting call backs to ED by both the PATIENT SUPPORT TECH and myself. Unfortunately, I did not receive a call back from him until 7 AM , a few hours after patient was discharged from ED. she was given a second dose of IM dilaudid, 2mg dose. she was comfortable with d /c home following this second dose, will call [facility] to discuss follow up Departure - Departure Disposition: 01 Home, Self Care Clinical Impression: Post-operative pain Condition: Good Instructions: ED Post Op Pain Discharge Date/Time: 12/21/16 03:28
[2016-12-21] MEDS ORDERED: HYDROmorphone 1 MG/ML SYRINGE IM STA ×2 (01:42→02:41)
[2016-12-21] MEDS ORDERED: ONDANSETRON 4 MG/2 ML VIAL IM STA (01:42)
[2016-12-21] MEDS ORDERED: ONDANSETRON 4 MG/2 ML VIAL ONE (01:54)
[2016-12-21] MEDS ORDERED: HYDROmorphone 1 MG/ML SYRINGE ONE ×2 (01:54→02:58)
[2016-12-21 03:28] VITALS: BP 124/82
== END 2016-12-21 03:28 | disposition home or self-care (01) ==
LOC: ED 22:37
DX: G89.18 Other acute postprocedural pain (principal)
CPT/HCPCS: 96372; 99283; J1170

== ENCOUNTER 2017-01-08 04:09 | Emergency (ER) | payer OTHER ==
[2017-01-08 04:46] LABS: BILIRUBIN,URINE NEGATIVE (NEGATIVE)
[2017-01-08 04:55] LABS: HCG UR QUAL NEGATIVE; UA w/ MICROSCOPIC CHARGE YES
[2017-01-08 04:56] LABS: UR CULTURE IF IND NOT INDICATED; WBC,URINE 0-3 /HPF (0-5)
[2017-01-08] MEDS ORDERED: KETOROLAC 60 MG/2 ML VIAL IM STA (04:59)
[2017-01-08] MEDS ORDERED: KETOROLAC 60 MG/2 ML VIAL ONE (05:05)
--- NOTE | 2017-01-08 05:26 | ED Physician Documentation ---
PD HPI FEMALE - Stated complaint Stated Complaint: FEMALE - Chief complaint Chief Complaint: Abd Pain - History obtained from History obtained from: Patient - History of Present Illness Timing - onset: Today Timing - details: Gradual onset, Still present Associated symptoms: Abdominal pain, Pelvic pain, Vaginal bleeding Contributing factors: No: , control Similar symptoms before: Work up / diagnostics, Treatment Recently seen: Not recently seen - Additional information Additional information: Patient is a 21 year old female with a history of endometriosis who is presenting to the emergency department for pelvic pain and vaginal bleeding. Patient states that her period recently started but that this pain is more than usual. patient states that she is passing quarter sized clots and that the percocets she took are not helping. Patient complains of mild nausea but denies any fevers or chills. Review of Systems Constitutional: denies: Fever, Chills Eyes: denies: Decreased vision Ears: denies: Ear pain, Drainage/discharge Nose: denies: Congestion Throat: denies: Dental pain / toothache, Sore throat Cardiac: denies: Chest pain / pressure Respiratory: denies: Dyspnea GI: reports: Abdominal Pain, Nausea. denies: Vomiting, Constipation, Diarrhea : reports: Vaginal bleeding, Irregular menses. 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: Endometriosis, Ovarian cysts : None HEENT: Other Psych: None Musculoskeletal: Other Derm: None - Past Surgical History Past Surgical History: Yes Ortho: Arthroscopic surgery /SANITATION WORKER CLEANING EQUIPMENT: Other - Present Medications Home Medications: Ambulatory Orders Medication Instructions Recorded Confirmed Oxycodone HCl 15 ml PO Q4H 12/19/16 12/20/16 - Allergies Allergies/Adverse Reactions: Allergies Allergy/AdvReac Type Severity Reaction Status Date / Time latex Allergy Hives Verified 01/02/17 14:12 tramadol Allergy Unknown Verified 12/20/16 22:47 - Social History Does the pt smoke?: No Smoking Status: Never smoker Does the pt drink ETOH?: No Does the pt have substance abuse?: No - Immunizations Immunizations are current?: Yes - POLST Patient has POLST: No PD ED PE NORMAL - General General: Alert and oriented X 3, No acute distress - HEENT HEENT: Atraumatic, PERRL - Neck Neck: Supple, no meningeal sign - Cardiac Cardiac: RRR, No murmur - Respiratory Respiratory: No respiratory distress - Abdomen Abdomen: Soft, Non distended - Female Female : Deferred - Derm Derm: Normal color, Warm and dry, No rash - Extremities Extremities: No deformity - Neuro Neuro: Alert and oriented X 3, No motor deficit, No sensory deficit - Psych Psych: Normal mood, Normal affect PD ED PE EXPANDED - Abdomen Abdomen: Tender to palpation, Suprapubic Results - Vitals Vitals: Vital Signs - 24 hr 01/08/17 01/08/17 04:14 06:15 Temperature 36.9 C 36.6 C Heart Rate 76 74 Respiratory 18 16 Rate Blood Pressure 123/96 H 143/72 H O2 Saturation 98 100 Oxygen O2 Source Room air - Labs Labs: Laboratory Tests 01/08/17 04:30 Urine Color YELLOW Urine Clarity CLEAR Urine pH 6.0 Ur Specific [place] >=1.030 H Urine Protein NEGATIVE Urine Glucose (UA) NEGATIVE Urine Ketones NEGATIVE Urine Occult Blood MODERATE H Urine Nitrite NEGATIVE Urine Bilirubin NEGATIVE Urine Urobilinogen 0.2 (NORMAL) Ur Leukocyte Esterase NEGATIVE Urine RBC 0-5 Urine WBC 0-3 Ur Squamous Epith Cells NONE SEEN Urine Bacteria None Seen Ur Microscopic Review INDICATED Urine Culture Comments NOT INDICATED Urine HCG, Qual NEGATIVE - Rads (name of study) pelvic ultrasound Radiology: Final report received (no acute abnormality) PD MEDICAL DECISION MAKING - ED course Complexity details: reviewed old records, reviewed results, re-evaluated patient , considered differential, d/w patient ED course: Patient was seen and examined at bedside. urine was collected and imaging was ordered. Patient was treated with toradol for pain. When patient's diagnostics came back they were within normal limits. Patient's symptoms were likely secondary to her endometriosis. No further work up was necessary at this time and patient was stable for discharge with outpatient follow up. Departure - Departure Disposition: 01 Home, Self Care Clinical Impression: Endometriosis Condition: Good Instructions: ED Endometriosis Follow-Up: FRANCIS PEDRO [Primary Care Provider] - As Needed Comments: Your diagnostics today were within normal limits. Your symptoms are likely an exacerbation of your endometriosis. You should continue with your current management and follow up with your pmd. You may return to the emergency department at any time if needed for new, worsening or uncontrollable symptoms. Forms: Activity restrictions
[2017-01-08 06:15] VITALS: BP 143/72
--- NOTE | 2017-01-08 06:23 | Ultrasound Preliminary Report ---
Exam: US TRANSVAGINAL IMPRESSION: Negative pelvic ultrasound. [facility] SITE ID: [id number]
--- NOTE | 2017-01-08 06:23 | Ultrasound Preliminary Report ---
Exam: US Pelvic Non OB w/Doppler Ltd IMPRESSION: Negative pelvic ultrasound. [facility] SITE ID: [id number]
--- NOTE | 2017-01-08 06:35 | Ultrasound Report ---
EXAM: PELVIC ULTRASOUND EXAM DATE: 01/08/2017 06:09 AM. CLINICAL HISTORY: Pelvic pain and cramping. COMPARISON: 07/07/2016 CT, 11/02/2016 ultrasound. TECHNIQUE: Real-time transabdominal pelvic scan performed to identify the uterus and adnexa and as an overview of other pelvic structures, followed by transvaginal scan to provide greater detail of the uterus and adnexa, with static image documentation. FINDINGS: Uterus: 7.5 x 2.8 x 3.4 cm, volume 37 cc. Retroverted position. Normal overall size and echotexture. Masses: None. Endometrium: 4 mm. Normal. Cervix: Unremarkable. Right Ovary: 3.4 x 2.0 x 3.3 cm, volume 11 cc. Normal echotexture and blood flow. Left Ovary: 3.5 x 2.6 x 4.5 cm, volume 22 cc. Normal echotexture and blood flow. Free Fluid: Trace. Other: None. IMPRESSION: Negative pelvic ultrasound. [facility] Referring Provider Line: [phone] SITE ID: [id number]
== END 2017-01-08 06:56 | disposition home or self-care (01) ==
LOC: ED 04:09
DX: N80.9 Endometriosis, unspecified (principal)
CPT/HCPCS: 76830; 76856; 81001; 81003; 81025; 87086; 93976; 96372; 99283; 99284

== ENCOUNTER 2017-01-10 08:03 | Day surgery (SDC) | payer OTHER ==
[~2017-01-10 08:03] MED LIST: ACETAMINOPHEN 1,000 MG/100 ML 100 ML IV ONE; ceFAZolin 2 GM/50 ML 2 GM/50 ML BAG IV ONE
[2017-01-10] MEDS ORDERED: LACTATED RINGERS 1,000 ML IV ONE ×2 (08:23→11:06)
[2017-01-10] MEDS ORDERED: SCOPOLAMINE PATCH TOP ONE (08:49)
[2017-01-10 09:48] LABS: HCG UR QUAL NEGATIVE
[2017-01-10] MEDS ORDERED: MIDAZOLAM 2 MG/2 ML VIAL IVP ONE (11:00)
[2017-01-10] MEDS ORDERED: PROPOFOL 200 MG/20 ML VIAL IVP ONE (11:00)
[2017-01-10] MEDS ORDERED: fentaNYL 100 MCG/2 ML VIAL IVP ONE (11:00)
[2017-01-10] MEDS ORDERED: ONDANSETRON 4 MG/2 ML VIAL IVP ONE (11:00)
[2017-01-10] MEDS ORDERED: DEXAMETHASONE 4 MG/ML VIAL IVP ONE (11:00)
[2017-01-10] MEDS ORDERED: LIDOCAINE-MPF 2% 5 ML VIAL IM ONE (11:00)
[2017-01-10] MEDS ORDERED: BUPIVACAINE 0.25% PF 30 ML VIAL SUBQ ONE (11:04)
[2017-01-10] MEDS: HYDROmorphone 1 MG/ML SYRINGE ONE ×4 (12:08→12:31)
--- NOTE | 2017-01-10 12:32 | OPERATIVE REPORT ---
DATE OF SURGERY: 01/10/2017 00:00:00 SURGEON OF RECORD: Alvaro Ram MD. PREOPERATIVE DIAGNOSIS: Left knee fat pad syndrome. POSTOPERATIVE DIAGNOSES 1. Left knee medial plica syndrome. 2. Left knee fat pad syndrome. PROCEDURES PERFORMED 1. Left knee diagnostic arthroscopy with extensive debridement, CPT 43932. 2. Left knee trochlear chondroplasty, CPT 44446. POSTOPERATIVE PLAN: Weightbearing as tolerated. No specific limitations. No impact activities for 6 w eeks. INDICATIONS FOR SURGERY: This is a 21-year-old female who has had bilateral anterior knee pain for a long period of time. She underwent right knee arthroscopy with fat pad debridement and medial plica d ebridement and had 70% relief of her knee pain. On the left side, she continues to have anterior knee pain, which is refractory to physical therapy and activity modifications. Risks, benefits, alternati ves were discussed with the patient. Risks include pain, bleeding, infection, damage to nearby struct ures, anesthetic risks, lack of symptom relief. We specifically discussed that this may or may not he lp her symptoms. She signed a written consent form. Examination under anesthesia, range of motion 0-140 degrees. Stable anterior drawer, posterior drawer , Loretta, negative pivot shift, stable to varus and valgus stress at 0 and 30 degrees. IMPLANTS: None. ANESTHESIA: General. ANTIBIOTICS: Weight based Ancef. ESTIMATED BLOOD LOSS: 5 mL. URINE OUTPUT: Not recorded. INTRAVENOUS FLUIDS: 1 liter. TOURNIQUET TIME: 25 minutes at 250 mmHg. SPECIMENS: None. COMPLICATIONS: None. DISPOSITION: Stable to PACU. DEEP VENOUS THROMBOSIS PROPHYLAXIS: Early frequent ambulation. FINDINGS Diagnostic arthroscopy 1. Patella grade 1 softening. 2. Trochlea grade 1 softening with linear grade 2 fissuring and a small loose piece, this was debride d. 3. Medial gutter okay. 4. Lateral gutter okay. 5. Medial emani joint, medial meniscus intact. 6. Tibial plateau with grade 2 fissuring. 7. Medial femoral condyle was okay. 8. ACL intact. 9. PCL intact. 10. Lateral emani joint, meniscus is okay. 11. Tibial plateau grade 2 fissuring. 12. Lateral femoral condyle is intact. 13. There was a medial plica appreciated, as well as an abundant fat pad. The fat pad was debrided. M edial plica was debrided, lateral fat pad was debrided as well. The meniscal attachments were left an d the inner meniscal ligament was visualized and left. PROCEDURE IN DETAIL: The patient was met in the preoperative holding area on the day of procedure. [facility] operative extremity was signed, consent was verified. She desired to proceed. She was brought to [facility] operating room and surrounded to anesthesia. Once general anesthesia had been obtained, she was florencia ubaldo in the supine position and examination under anesthesia was performed. The leg was prepped and dr aped in the standard sterile fashion. A surgical time-out was held where we confirmed the patient's p rocedure, identity, allergies, antibiotics, images. All were in agreement, we proceeded. Standard diagnostic arthroscopy was performed through anterolateral and anteromedial portals. The ant eromedial portal was created under direct visualization utilizing a spinal needle. A combination of a sucker shaver and radiofrequency ablation wand was used to debride the fat pad to take down the medi al plica and to take down the lateral plica. I ensured that the meniscal attachments anteriorly remai chet intact. The inner meniscal ligament was identified and left intact as well. The trochlear cartila ge fissuring and loose portion was then debrided with a sucker shaver, as well. Final images showed t he fat pad being wide open and no impinging structures. The fluid was removed from the knee and all i nstruments were removed. We then placed 20 mL of 0.25% lidocaine about the portal sites. Wounds were closed with 3-0 nylon and portal stitch. Xeroform and a sterile dressing was applied. The patient was awakened and sent to the recovery room without issue. JOB #: [id number] JOB #:[id number]
[2017-01-10] MEDS ORDERED: KETOROLAC 15 MG/ML VIAL ONE (12:38)
[2017-01-10] MEDS ORDERED: oxyCODONE 5 MG TABLET ONE (12:39)
[2017-01-10] MEDS ORDERED: ONDANSETRON 4 MG/2 ML VIAL ONE (13:05)
[2017-01-10 14:08] VITALS: BP 114/78
== END 2017-01-10 08:04 | disposition home or self-care (01) ==
LOC: SDS 08:03
PROVIDERS: ATTEND Orthopaedic Surgery
PROC: 0SBD4ZZ Excision of Left Knee Joint, Percutaneous Endoscopic Approach (ICD-10-PCS; principal; 2017-01-10 10:00)
DX: M67.52 Plica syndrome, left knee (principal)
CPT/HCPCS: 29876; 81025; A9270; J0131; J0690; J1170; J3490; J7120

== ENCOUNTER 2017-03-16 19:09 | Emergency (ER) | payer OTHER ==
--- NOTE | 2017-03-16 21:04 | ED Physician Documentation ---
PD HPI ABD PAIN - Stated complaint Stated Complaint: SIDE PX - Chief complaint Chief Complaint: Abd Pain - History obtained from History obtained from: Patient - History of Present Illness Timing - onset: Other (She had a sore throat for little over a week[place], re-presented and was tested for mono and now is positive. This was 2 days ago. She had sudden onset left upper quadrant pain today without specific trauma that is moderate in intensity and nonradiating. No vomiting.) Review of Systems Ten Systems: 10 systems reviewed and negative Constitutional: reports: Myalgias, Fatigue. 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, Ovarian cysts : None HEENT: Other Psych: None Musculoskeletal: Other Derm: None - Past Surgical History Past Surgical History: Yes Ortho: Arthroscopic surgery /REPRODUCTION PRODUCTION MANAGER: Other - Present Medications Home Medications: Ambulatory Orders Medication Instructions Recorded Confirmed No Known Home Medications [No 03/16/17 03/16/17 Known Home Medications] - Allergies Allergies/Adverse Reactions: Allergies Allergy/AdvReac Type Severity Reaction Status Date / Time latex Allergy Hives Verified 03/16/17 19:23 tramadol Allergy Unknown Verified 03/16/17 19:23 - Social History Does the pt smoke?: No Smoking Status: Never smoker Does the pt drink ETOH?: No Does the pt have substance abuse?: No - Immunizations Immunizations are current?: Yes - POLST Patient has POLST: No PD ED PE NORMAL - Vitals Vital signs reviewed: Yes - General General: Alert and oriented X 3, No acute distress - HEENT HEENT: PERRL, EOMI, Pharynx benign - Neck Neck: Supple, no meningeal sign, No bony TTP - Cardiac Cardiac: RRR, No murmur - Respiratory Respiratory: No respiratory distress, Clear bilaterally - Abdomen Abdomen: Normal bowel sounds, Soft, Other (Mild left upper quadrant tenderness without surgical signs) - Derm Derm: Normal color, Warm and dry, No rash - Neuro Neuro: Alert and oriented X 3, Normal speech - Psych Psych: Normal mood, Normal affect Results - Vitals Vitals: Vital Signs - 24 hr 03/16/17 19:20 Temperature 37.0 C Heart Rate 94 Respiratory 16 Rate Blood Pressure 118/80 O2 Saturation 98 Oxygen O2 Source Room air - Labs Labs: Laboratory Tests 03/16/17 03/16/17 03/16/17 20:12 21:06 21:06 WBC 8.3 RBC 4.90 Hgb 13.9 Hct 41.7 MCV 85.1 MCH 28.4 MCHC 33.3 RDW 13.3 Plt Count 280 MPV 8.3 Neut # 2.3 Lymph # 5.0 H [place] # 0.9 Eos # 0.1 Baso # 0.1 Absolute Nucleated RBC 0.01 Nucleated RBC % 0.2 Manual Slide Review Indicated WBC Morphology 2+ REACTIVE LYMPHS Platelet Estimate NORMAL (130-450,000) Platelet Morphology NORMAL APPEARANCE RBC Morph Micro Appear NORMAL APPEARANCE Sodium 136 Potassium 3.4 L Chloride 99 L Carbon Dioxide 26 Anion Gap 11.0 BUN 13 Creatinine 0.8 Estimated GFR (MDRD) 89 Glucose 102 H Calcium 9.5 Total Bilirubin 0.3 AST 234 H ALT 257 H Alkaline Phosphatase 285 H Total Protein 7.9 Albumin 4.2 Globulin 3.7 Albumin/Globulin Ratio 1.1 Lipase 35 Urine Color YELLOW Urine Clarity CLEAR Urine pH 6.0 Ur Specific [place] 1.025 Urine Protein NEGATIVE Urine Glucose (UA) NEGATIVE Urine Ketones NEGATIVE Urine Occult Blood TRACE-INTA Urine Nitrite NEGATIVE Urine Bilirubin NEGATIVE Urine Urobilinogen 0.2 (NORMAL) Ur Leukocyte Esterase NEGATIVE Ur Microscopic Review NOT INDICATED Urine Culture Comments NOT INDICATED Urine HCG, Qual NEGATIVE - Rads (name of study) CT Abd Radiology: EMP read contemporaneously (Splenomegaly, mild bibasilar atelectasis and trace pleural effusions, trace pericardial effusion, mild colonic wall thickening.) PD MEDICAL DECISION MAKING - ED course ED course: 21-year-old woman with mononucleosis and left upper quadrant pain, concern for splenic rupture, she has splenomegaly on CT but no rupture. All the other findings are low-grade and can be explained by mononucleosis. Departure - Departure Disposition: 01 Home, Self Care Clinical Impression: Mononucleosis, Splenomegaly Condition: Good Record reviewed to determine appropriate education?: Yes Instructions: ED Mononucleosis Comments: Ibuprofen as needed for pain. Return if worse. Avoid sports or other activities where he would be at risk for abdominal trauma.
[2017-03-16 21:05] LABS: BILIRUBIN,URINE NEGATIVE (NEGATIVE)
[2017-03-16 21:07] LABS: HCG UR QUAL NEGATIVE; UA CHARGE (STRIP ONLY) YES; UR CULTURE IF IND NOT INDICATED
[2017-03-16 21:16] LABS: BASOPHILS # (AUTO) 0.1 10^3/uL (0.0-0.1); BASOPHILS % (AUTO) 0.7 %; EOSINOPHILS # (AUTO) 0.1 10^3/uL (0.0-0.7); EOSINOPHILS % (AUTO) 0.7 %; HCT - HEMATOCRIT 41.7 % (37.0-47.0); HGB - HEMOGLOBIN 13.9 g/dL (12.0-16.0); LYMPHOCYTES % (AUTO) 60.5 %; MEAN CORPUSCULAR HEMOGLOBIN 28.4 pg (27.0-31.0); MEAN CORPUSCULAR HGB CONC 33.3 g/dL (32.0-36.0); MEAN CORPUSCULAR VOLUME 85.1 fL (81.0-99.0); MEAN PLATELET VOLUME 8.3 fL (7.9-10.8); MONOCYTES # (AUTO) 0.9 10^3/uL (0.0-1.0); MONOCYTES % (AUTO) 10.3 %; NEUTROPHILS # (AUTO) 2.3 10^3/uL (1.5-6.6); NEUTROPHILS % (AUTO) 27.8 %; NUCLEATED RED BLOOD CELLS AUTO 0.2 /100WBC; RED CELL DISTRIBUTION WIDTH 13.3 % (12.0-15.0); UNCORRECTED WHITE BLOOD COUNT 8.3 x10^3/uL; WHITE BLOOD COUNT 8.3 x10^3/uL (4.8-10.8)
[2017-03-16] MEDS ORDERED: IOPAMIDOL-300 100 ML VIAL ONE (21:33)
[2017-03-16 21:39] LABS: ALBUMIN/GLOBULIN RATIO 1.1 (1.0-2.2); BILIRUBIN,TOTAL 0.3 mg/dL (0.2-1.0); CALCIUM 9.5 mg/dL (8.5-10.3); CREATININE 0.8 mg/dL (0.4-1.0); POTASSIUM 3.4 mmol/L (3.5-5.0); TOTAL PROTEIN 7.9 g/dL (6.7-8.2)
[2017-03-16] MEDS ORDERED: IOPAMIDOL-300 100 ML VIAL IVP ONE (21:58)
--- NOTE | 2017-03-16 22:09 | CT Preliminary Report ---
Exam: CT ABDOMEN W/ IMPRESSION: 1. Splenomegaly measuring 14.4 cm. No acute splenic abnormality. 2. Minimal bibasilar atelectasis or infiltrate and trace pleural effusions. 3. Trace pericardial effusion. 4. Mild colonic wall thickening which may simple represent nondistention. Low-grade colitis also poss ible. [facility] SITE ID: [id number]
[2017-03-16 22:10] LABS: PLATELET ESTIMATE, MANUAL NORMAL (130-450,000) (NORMAL); PLATELET MORPHOLOGY NORMAL APPEARANCE (NORMAL)
[2017-03-16 22:11] LABS: WBC MORPHOLOGY (MULTIPLE) 2+ REACTIVE LYMPHS (NORMAL)
--- NOTE | 2017-03-16 22:11 | CT Report ---
EXAM: CT ABDOMEN EXAM DATE: 03/16/2017 09:47 PM. CLINICAL HISTORY: Left upper quadrant pain. Mononucleosis. COMPARISON: 07/07/2016. TECHNIQUE: Routine helical CT imaging was performed through the abdomen. IV contrast: Nonionic Enter ic contrast: No. Reconstruction: Coronal and sagittal. In accordance with CT protocol optimization, one or more of the following dose reduction techniques w ere utilized for this exam: automated exposure control, adjustment of mA and/or KV based on patient s ize, or use of iterative reconstructive technique. FINDINGS: Lung Bases: Minimal bibasilar atelectasis or infiltrate and trace pleural effusions. Trace pericardia l effusion. Liver: No focal lesion identified. Gallbladder/Bile Ducts: Unremarkable. Spleen: Enlarged at 14.4 cm. No splenic rupture. Pancreas: Normal. Adrenal Glands: Normal. Kidneys: Normal. No masses or hydronephrosis. Peritoneal Cavity/Bowel: Multiple normal-sized mesenteric and retroperitoneal lymph nodes. No free ai r or free fluid. No bowel obstruction seen. No diverticulitis. Colon is mostly collapsed and appears mildly thickened. Vasculature: No aneurysms or other significant abnormality. Bones: No significant abnormality. Other: None. IMPRESSION: 1. Splenomegaly measuring 14.4 cm. No acute splenic abnormality. 2. Minimal bibasilar atelectasis or infiltrate and trace pleural effusions. 3. Trace pericardial effusion. 4. Mild colonic wall thickening which may simple represent nondistention. Low-grade colitis also poss ible. [facility] Referring Provider Line: [phone] SITE ID: [id number]
[2017-03-16 22:26] VITALS: BP 121/68
== END 2017-03-16 22:26 | disposition home or self-care (01) ==
LOC: ED 19:09
DX: B27.90 Infectious mononucleosis, unspecified without complication (principal); R16.1 Splenomegaly, not elsewhere classified; R10.12 Left upper quadrant pain
CPT/HCPCS: 36415; 74160; 80053; 81003; 81025; 83690; 85025; 99283; 99284; Q9967; 81001; 87086

== ENCOUNTER 2017-03-17 18:19 | Outpatient (CLI) | payer OTHER | END 2017-03-17 18:20 | disposition critical access hospital (66) | LOC: EMS 18:19 | PROVIDERS: ATTEND Surgery | DX: R10.12 Left upper quadrant pain (principal); R11.2 Nausea with vomiting, unspecified | CPT/HCPCS: A0425; A0429 ==

== ENCOUNTER 2017-03-17 18:33 | Emergency (ER) | payer OTHER ==
[2017-03-17] MEDS ORDERED: HYOSCYAMINE SL 0.125 MG TABLET SL STA (18:47)
[2017-03-17] MEDS ORDERED: MAG HYDROX/AL HYDROX/SIMETH 30 ML UDC PO STA (18:47)
[2017-03-17] MEDS ORDERED: ONDANSETRON 4 MG/2 ML VIAL IVP STA (18:47)
[2017-03-17] MEDS ORDERED: FAMOTIDINE 20 MG TABLET PO STA (18:47)
[2017-03-17] MEDS ORDERED: SUCRALFATE 1 GM/10 ML UDC PO STA (18:47)
[2017-03-17] MEDS ORDERED: LIDOCAINE VISCOUS 2% 15 ML UDC MM STA (18:47)
--- NOTE | 2017-03-17 18:51 | ED Physician Documentation ---
History of Present Illness - Stated complaint Stated Complaint: ABD PAIN - Chief complaint Chief Complaint: Abd Pain - History obtained from History obtained from: Patient, EMS - History of Present Illness Pain level max: 7 Pain level now: 4 Improved by: rest Worsened by: eating - Additonal information Additional information: Patient is a 21-year-old female who presents to the emergency department after being seen here yesterday for left upper quadrant abdominal pain. She had a sore throat a few weeks ago, rapid strep negative, then was diagnosed with mono. Yesterday she developed left upper quadrant abdominal pain. Seen here. Normal labs. Negative CT scan at that time other than a enlarged spleen. Also mild elevation of her LFTs. Had vomiting 3 today. No fevers. No hematemesis. She has been taken Motrin 4 times a day for the past several weeks for fever. Review of Systems Ten Systems: 10 systems reviewed and negative Constitutional: denies: Fever, Chills Nose: denies: Rhinorrhea / runny nose, Congestion Respiratory: denies: Cough GI: reports: Vomiting. 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, Ovarian cysts : None HEENT: Other Psych: None Musculoskeletal: Other Derm: None - Past Surgical History Past Surgical History: Yes Ortho: Arthroscopic surgery /CEMENT LOADER: Other - Present Medications Home Medications: Ambulatory Orders Medication Instructions Recorded Confirmed Famotidine [Pepcid] 20 mg PO BID #60 tablet 03/17/17 Omeprazole [PriLOSEC] 20 mg PO DAILY #30 capsule 03/17/17 Ondansetron Odt [Zofran] 4 mg TL Q6H PRN #10 tablet 03/17/17 Venlafaxine [Effexor] 1 tab PO DAILY 03/17/17 03/17/17 oxyCODONE [Roxicodone] 5 - 10 mg PO Q6H PRN #10 tablet 03/17/17 - Allergies Allergies/Adverse Reactions: Allergies Allergy/AdvReac Type Severity Reaction Status Date / Time latex Allergy Hives Verified 03/17/17 18:38 tramadol Allergy Unknown Verified 03/17/17 18:38 - Social History Does the pt smoke?: No Smoking Status: Never smoker Does the pt drink ETOH?: No Does the pt have substance abuse?: No - Immunizations Immunizations are current?: Yes - POLST Patient has POLST: No PD ED PE NORMAL - Vitals Vital signs reviewed: Yes - General General: Alert and oriented X 3, No acute distress, Well developed/nourished - HEENT HEENT: PERRL, Moist mucous membranes - Neck Neck: Supple, no meningeal sign - Cardiac Cardiac: RRR, Strong equal pulses - Respiratory Respiratory: No respiratory distress, Clear bilaterally - Abdomen Abdomen: Soft, Non distended, Other (TTP epigastric and LUQ without peritoneal signs. ) - Back Back: No CVA TTP, No spinal TTP - Derm Derm: Warm and dry - Neuro Neuro: Alert and oriented X 3 - Psych Psych: Normal mood, Normal affect Results - Vitals Vitals: Vital Signs - 24 hr 03/17/17 03/17/17 18:36 19:06 Temperature 36.2 C L Heart Rate 92 93 Respiratory 16 18 Rate Blood Pressure 140/93 H 107/76 O2 Saturation 100 99 Oxygen O2 Source Room air - Labs Labs: Laboratory Tests 03/17/17 03/17/17 03/17/17 18:45 18:45 19:08 WBC 10.0 RBC 4.81 Hgb 14.0 Hct 40.8 MCV 84.8 MCH 29.2 MCHC 34.4 RDW 13.1 Plt Count 296 MPV 8.3 Neut # Not Reportable Lymph # Not Reportable [place] # Not Reportable Eos # Not Reportable Baso # Not Reportable Absolute Nucleated RBC Not Reportable Total Counted 100 Band Neuts % (Manual) 0 Reactive Lymphs % (Man) 18 Abnorm Lymph % (Manual) 0 Nucleated RBC % Not Reportable Neutrophils # (Manual) 2.1 Lymphocytes # (Manual) 7.3 H Monocytes # (Manual) 0.4 Eosinophils # (Manual) 0.1 Basophils # (Manual) 0.1 Differential Comment MANUAL DIFFERENTIAL Platelet Estimate NORMAL (130-450,000) Platelet Morphology 1+ LARGE PLATELETS RBC Morph Micro Appear NORMAL APPEARANCE Sodium 136 Potassium 3.5 Chloride 104 Carbon Dioxide 24 Anion Gap 8.0 BUN 9 Creatinine 0.7 Estimated GFR (MDRD) 104 Glucose 122 H Calcium 9.0 Total Bilirubin 0.5 AST 190 H ALT 271 H Alkaline Phosphatase 286 H Total Protein 7.6 Albumin 4.1 Globulin 3.5 Albumin/Globulin Ratio 1.2 Lipase 32 Urine Color YELLOW Urine Clarity CLEAR Urine pH 7.0 Ur Specific [place] 1.020 Urine Protein NEGATIVE Urine Glucose (UA) NEGATIVE Urine Ketones NEGATIVE Urine Occult Blood TRACE-INTA Urine Nitrite NEGATIVE Urine Bilirubin NEGATIVE Urine Urobilinogen 0.2 (NORMAL) Ur Leukocyte Esterase NEGATIVE Ur Microscopic Review NOT INDICATED Urine Culture Comments NOT INDICATED PD MEDICAL DECISION MAKING - ED course Complexity details: reviewed old records, reviewed results, re-evaluated patient , considered differential, d/w patient ED course: Patient is a 21-year-old female who presents to the emergency department with left upper quadrant abdominal pain, epigastric pain. Worse after vomiting. She has been taking ibuprofen regularly for fevers associated with her mononucleosis. Had a CT scan yesterday that showed splenomegaly and hepatomegaly with mildly elevated LFTs. Symptoms appear consistent with gastritis and improved with GI cocktail. Will place on a PPI as well as H2 kayli for home. We will also prescribe a small amount of pain medication for her. Tolerating p.o. without difficulty here. Abdomen is soft, nontender nondistended on serial examination without peritoneal signs. Patient counseled regarding signs and symptoms for which I believe and urgent re-evaluation would be necessary. Patient with good understanding of and agreement to plan and is comfortable going home at this time This document was made in part using voice recognition software. While efforts are made to proofread this document, sound alike and grammatical errors may occur. Departure - Departure Disposition: 01 Home, Self Care Clinical Impression: Gastritis Qualifiers: Gastritis type: unspecified gastritis Chronicity: acute Gastritis bleeding: without bleeding Qualified Code(s): K29.00 - Acute gastritis without bleeding Condition: Good Instructions: ED PUD Vs Gastritis Follow-Up: your,doctor in 1 week [Other] Prescriptions: Famotidine [Pepcid] 20 mg PO BID #60 tablet Omeprazole [PriLOSEC] 20 mg PO DAILY #30 capsule Ondansetron Odt [Zofran] 4 mg TL Q6H PRN #10 tablet PRN Reason: Nausea / Vomiting oxyCODONE [Roxicodone] 5 - 10 mg PO Q6H PRN #10 tablet PRN Reason: Abdominal Pain Comments: Return if you worsen. Stop using ibuprofen at home and change to tylenol. Drink plenty of fluids. Avoid spicy foods, fried foods, caffeine and alcohol. Do not drink alcohol or drive while on narcotic pain medicine. Note that many narcotic pain relievers also contain tylenol/acetaminophen. Please ensure that your total dose of acetaminophen from all sources does not exceed 3 grams (3000mg) per day. You may constipated on this medication, take a stool softener such as "Colace" twice a day while you are on it. Also recommend a [id number] laxative such as senna or MiraLAX any day that you do not have a bowel movement. If you received narcotic pain medication in the emergency department, do not drive or operate machinery for the next 24 hours. Discharge Date/Time: 03/17/17 20:55
[2017-03-17] MEDS ORDERED: SODIUM CHLORIDE 0.9% 1,000 ML IV ONE (18:53)
[2017-03-17 18:58] LABS: BASOPHILS % (AUTO) 0.8 %; EOSINOPHILS % (AUTO) 0.7 %; HCT - HEMATOCRIT 40.8 % (37.0-47.0); LYMPHOCYTES % (AUTO) 66.9 %; MEAN CORPUSCULAR HEMOGLOBIN 29.2 pg (27.0-31.0); MEAN CORPUSCULAR HGB CONC 34.4 g/dL (32.0-36.0); MEAN CORPUSCULAR VOLUME 84.8 fL (81.0-99.0); MEAN PLATELET VOLUME 8.3 fL (7.9-10.8); MONOCYTES % (AUTO) 7.8 %; NEUTROPHILS % (AUTO) 23.8 %; RED BLOOD COUNT 4.81 10^6/uL (4.20-5.40); RED CELL DISTRIBUTION WIDTH 13.1 % (12.0-15.0)
[2017-03-17 19:03] LABS: BAND NEUTROPHILS % (MANUAL) 0 %
[2017-03-17] MEDS ORDERED: FAMOTIDINE 20 MG TABLET ONE (19:03)
[2017-03-17] MEDS ORDERED: ONDANSETRON 4 MG/2 ML VIAL ONE (19:04)
[2017-03-17] MEDS ORDERED: MAG HYDROX/AL HYDROX/SIMETH 30 ML UDC ONE (19:04)
[2017-03-17] MEDS ORDERED: HYOSCYAMINE SL 0.125 MG TABLET SL ONE (19:04)
[2017-03-17] MEDS ORDERED: SUCRALFATE 1 GM/10 ML UDC ONE (19:04)
[2017-03-17] MEDS ORDERED: LIDOCAINE VISCOUS 2% 15 ML UDC MM ONE (19:04)
[2017-03-17 19:07] VITALS: BP 107/76
[2017-03-17 19:10] LABS: ALBUMIN/GLOBULIN RATIO 1.2 (1.0-2.2); BILIRUBIN,TOTAL 0.5 mg/dL (0.2-1.0); CREATININE 0.7 mg/dL (0.4-1.0); POTASSIUM 3.5 mmol/L (3.5-5.0); TOTAL PROTEIN 7.6 g/dL (6.7-8.2)
[2017-03-17 19:16] LABS: BASOPHILS % (MANUAL) 1 %; EOSINOPHILS % (MANUAL) 1 %; LYMPHOCYTES % (MANUAL) 55 %; NEUTROPHILS % (MANUAL) 21 %; TOTAL CELLS COUNTED 100
[2017-03-17 19:20] LABS: NP AUTO DIFFERENTIAL? YES; NP MAN DIFFERENTIAL? NO; PLATELET ESTIMATE, MANUAL NORMAL (130-450,000) (NORMAL); PLATELET MORPHOLOGY 1+ LARGE PLATELETS (NORMAL)
[2017-03-17 19:28] LABS: BILIRUBIN,URINE NEGATIVE (NEGATIVE)
[2017-03-17 19:32] LABS: UA CHARGE (STRIP ONLY) YES; UR CULTURE IF IND NOT INDICATED
[2017-03-17] MEDS ORDERED: oxyCODONE 5 MG TABLET PO STA (19:45)
[2017-03-17] MEDS ORDERED: oxyCODONE 5 MG TABLET ONE (20:04)
[2017-03-17] MEDS: HYDROcod/ACETAM 5/325 MG TABLET PO STA ×2 (20:10→20:13)
[2017-03-17] MEDS ORDERED: MORPHINE 10 MG/ML VIAL IVP STA (20:21)
[2017-03-17] MEDS ORDERED: MORPHINE 2 MG/ML SYRINGE ONE (20:33)
== END 2017-03-17 20:55 | disposition home or self-care (01) ==
LOC: EDUNIT# → ED 18:33
DX: K29.00 Acute gastritis without bleeding (principal)
CPT/HCPCS: 36415; 80053; 81003; 83690; 85025; 96374; 96375; 99283; 99284; A9270; J2270; 81001; 87086

== ENCOUNTER 2017-03-25 20:05 | Emergency (ER) | payer OTHER ==
[2017-03-25] MEDS ORDERED: HYDROmorphone 1 MG/ML SYRINGE IVP STA (20:25)
[2017-03-25] MEDS ORDERED: ONDANSETRON 4 MG/2 ML VIAL IVP STA (20:25)
--- NOTE | 2017-03-25 20:27 | ED Physician Documentation ---
PD HPI ABD PAIN - Stated complaint Stated Complaint: ABD PX/DIZZY - Chief complaint Chief Complaint: Abd Pain - History obtained from History obtained from: Patient - History of Present Illness Timing - onset: Other (Recent diagnosis of mono, had a CT for left upper quadrant pain about a week ago which was negative for splenic rupture. Tonight she was giving her dog a bath and the dog head butted her in the left upper quadrant and she developed more severe pain there with dizziness. No vomiting.) Review of Systems Constitutional: reports: Fatigue. denies: Fever, Chills Throat: reports: Sore throat GI: reports: Abdominal Pain. 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 cysts : None HEENT: Other Psych: None Musculoskeletal: Other Derm: None - Past Surgical History Past Surgical History: Yes Ortho: Arthroscopic surgery /LEAN CONSULTANT: Other - Present Medications Home Medications: Ambulatory Orders Medication Instructions Recorded Confirmed Famotidine [Pepcid] 20 mg PO BID #60 tablet 03/17/17 03/25/17 Omeprazole [PriLOSEC] 20 mg PO DAILY #30 capsule 03/17/17 03/25/17 Ondansetron Odt [Zofran] 4 mg TL Q6H PRN #10 tablet 03/17/17 03/25/17 Venlafaxine [Effexor] 1 tab PO DAILY 03/17/17 03/25/17 oxyCODONE [Roxicodone] 5 - 10 mg PO Q6H PRN #10 tablet 03/17/17 03/25/17 - Allergies Allergies/Adverse Reactions: Allergies Allergy/AdvReac Type Severity Reaction Status Date / Time latex Allergy Hives Verified 03/25/17 20:12 tramadol Allergy Unknown Verified 03/25/17 20:12 - Social History Does the pt smoke?: No Smoking Status: Never smoker Does the pt drink ETOH?: No Does the pt have substance abuse?: No - Immunizations Immunizations are current?: Yes - POLST Patient has POLST: No PD ED PE NORMAL - Vitals Vital signs reviewed: Yes - General General: Alert and oriented X 3, No acute distress - Cardiac Cardiac: RRR, No murmur - Respiratory Respiratory: No respiratory distress, Clear bilaterally - Abdomen Abdomen: Normal bowel sounds, Soft, Non tender - Neuro Neuro: Alert and oriented X 3, Normal speech - Psych Psych: Normal mood, Normal affect Results - Vitals Vitals: Vital Signs - 24 hr 03/25/17 20:10 Temperature 36.8 C Heart Rate 95 Respiratory 16 Rate Blood Pressure 137/92 H O2 Saturation 100 Oxygen O2 Source Room air - Labs Labs: Laboratory Tests 03/25/17 03/25/17 20:35 20:35 WBC 9.8 RBC 4.65 Hgb 13.2 Hct 39.6 MCV 85.3 MCH 28.4 MCHC 33.3 RDW 13.2 Plt Count 259 MPV 8.3 Neut # Not Reportable Lymph # Not Reportable [place] # Not Reportable Eos # Not Reportable Baso # Not Reportable Absolute Nucleated RBC Not Reportable Total Counted 100 Band Neuts % (Manual) 1 Reactive Lymphs % (Man) 14 Abnorm Lymph % (Manual) 0 Nucleated RBC % Not Reportable Neutrophils # (Manual) 2.0 Lymphocytes # (Manual) 7.3 H Monocytes # (Manual) 0.4 Eosinophils # (Manual) 0.1 Basophils # (Manual) 0.1 Differential Comment MANUAL DIFFERENTIAL Platelet Estimate NORMAL (130-450,000) Platelet Morphology NORMAL APPEARANCE RBC Morph Micro Appear NORMAL APPEARANCE Sodium 139 Potassium 3.4 L Chloride 101 Carbon Dioxide 26 Anion Gap 12.0 BUN 11 Creatinine 0.7 Estimated GFR (MDRD) 104 Glucose 105 H Calcium 9.1 Total Bilirubin 0.2 AST 55 H ALT 108 H Alkaline Phosphatase 190 H Total Protein 7.2 Albumin 3.8 Globulin 3.4 Albumin/Globulin Ratio 1.1 Lipase 32 - Rads (name of study) LUQ sono Radiology: Prelim report reviewed (no FF, no splenic rupture) PD MEDICAL DECISION MAKING - ED course ED course: 21-year-old with minor left upper quadrant trauma in the setting of mono. She has had several evaluations for similar already and has already had a CT scan with negative findings. Given the history though of course a repeat evaluation was necessary, done this time with ultrasound and negative for signs of splenic rupture. Her liver enzymes are trending back towards normal. Departure - Departure Disposition: 01 Home, Self Care Clinical Impression: Mononucleosis, Splenomegaly Condition: Good Record reviewed to determine appropriate education?: Yes Instructions: ED Mononucleosis Comments: Call your doctor to arrange a follow-up appointment, make the next available appointment. In the interim, return anytime if worse or if new symptoms develop. Your blood pressure was elevated today on check into the emergency department. This does not mean that you have hypertension, it is a common phenomenon to come to the emergency department and have elevated blood pressure. I recommend that you see your primary care physician within the week to have it rechecked when you are feeling better.
[2017-03-25 20:46] LABS: BASOPHILS % (AUTO) 0.7 %; EOSINOPHILS % (AUTO) 1.4 %; HCT - HEMATOCRIT 39.6 % (37.0-47.0); HGB - HEMOGLOBIN 13.2 g/dL (12.0-16.0); MEAN CORPUSCULAR HEMOGLOBIN 28.4 pg (27.0-31.0); MEAN CORPUSCULAR HGB CONC 33.3 g/dL (32.0-36.0); MEAN CORPUSCULAR VOLUME 85.3 fL (81.0-99.0); MEAN PLATELET VOLUME 8.3 fL (7.9-10.8); MONOCYTES % (AUTO) 8.5 %; NEUTROPHILS % (AUTO) 21.4 %; RED BLOOD COUNT 4.65 10^6/uL (4.20-5.40); RED CELL DISTRIBUTION WIDTH 13.2 % (12.0-15.0); UNCORRECTED WHITE BLOOD COUNT 9.8 x10^3/uL; WHITE BLOOD COUNT 9.8 x10^3/uL (4.8-10.8)
[2017-03-25 20:57] LABS: ALBUMIN/GLOBULIN RATIO 1.1 (1.0-2.2); BILIRUBIN,TOTAL 0.2 mg/dL (0.2-1.0); CALCIUM 9.1 mg/dL (8.5-10.3); CREATININE 0.7 mg/dL (0.4-1.0); POTASSIUM 3.4 mmol/L (3.5-5.0); TOTAL PROTEIN 7.2 g/dL (6.7-8.2)
[2017-03-25 21:25] LABS: BAND NEUTROPHILS % (MANUAL) 1 %; BASOPHILS % (MANUAL) 1 %; EOSINOPHILS % (MANUAL) 1 %; LYMPHOCYTES % (MANUAL) 60 %; NEUTROPHILS % (MANUAL) 19 %; PLATELET MORPHOLOGY NORMAL APPEARANCE (NORMAL); TOTAL CELLS COUNTED 100
[2017-03-25 21:26] LABS: NP AUTO DIFFERENTIAL? YES; NP MAN DIFFERENTIAL? NO; PLATELET ESTIMATE, MANUAL NORMAL (130-450,000) (NORMAL)
--- NOTE | 2017-03-25 21:45 | Ultrasound Preliminary Report ---
Exam: US ABDOMEN LIMITED IMPRESSION: Splenomegaly. No acute findings. [facility] SITE ID: [id number]
--- NOTE | 2017-03-25 21:48 | Ultrasound Report ---
EXAM: ABDOMEN ULTRASOUND LIMITED EXAM DATE: 03/25/2017 09:10 PM. CLINICAL HISTORY: LUQ pain. Trauma. History of mono. COMPARISON: None. TECHNIQUE: Real-time scanning was performed with static images obtained. FINDINGS: Spleen: 13.6 x 5.3 x 16.8 cm, abnormally enlarged. Mildly heterogeneous. No sign of traumatic abnorma lity. Left kidney: 12 cm longitudinally. No hydronephrosis, stone, or mass identified. Free fluid: None. IMPRESSION: Splenomegaly. [facility] Referring Provider Line: [phone] SITE ID: [id number]
[2017-03-25 21:56] VITALS: BP 128/74
== END 2017-03-25 21:55 | disposition home or self-care (01) ==
LOC: ED 20:05
DX: B27.90 Infectious mononucleosis, unspecified without complication (principal); R16.1 Splenomegaly, not elsewhere classified; R03.0 Elevated blood-pressure reading, without diagnosis of hypertension
CPT/HCPCS: 36415; 76705; 80053; 83690; 85025; 96374; 96375; 99283; 99284; J1170

== ENCOUNTER 2017-04-11 14:33 | Emergency (ER) | payer OTHER ==
--- NOTE | 2017-04-11 15:02 | ED Physician Documentation ---
PD HPI SYNCOPE - Stated complaint Stated Complaint: CP/SOA/PASSED OUT - History obtained from History obtained from: Patient - History of Present Illness Witnessed: Witnessed Timing - onset: Today Duration: Seconds Preceding symptoms: Light headed, Generalized weakness. No: Chest pain, Palpitations Associated symptoms: Chest pain (states has had sharp chest pain for the past few days. Worse with deep inspiration and movement. Better with rest.). No: Seizure, Incontinant of urine, Incontinant of stool, Dyspnea, Nausea / vomiting Injury occurred: Fell. No: Head injury, Neck injury, Bit tongue Pain level max: 3 Pain level now: 3 Similar symptoms before: Diagnosis (vasovagal syncope in the past) Recently seen: Not recently seen Review of Systems Ten Systems: 10 systems reviewed and negative Constitutional: denies: Fever, Chills Eyes: denies: Decreased vision, Photophobia Ears: denies: Ear pain Nose: denies: Rhinorrhea / runny nose, Congestion Throat: denies: Sore throat Cardiac: denies: Palpitations Respiratory: denies: Hemoptysis, Wheezing GI: denies: Abdominal Pain, Nausea, Vomiting, Diarrhea : denies: Now EGA Skin: denies: Rash Musculoskeletal: denies: Neck pain, Back pain Neurologic: denies: Generalized weakness, Headache PD PAST MEDICAL HISTORY - Past Medical History Past Medical History: Yes Cardiovascular: None Respiratory: None Neuro: None Endocrine/Autoimmune: None GI: None 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, Ovarian cysts : None HEENT: Other Psych: None Musculoskeletal: Other Derm: None - Past Surgical History Past Surgical History: Yes Ortho: Arthroscopic surgery /YARN BLEACHING 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: Other - Present Medications Home Medications: Ambulatory Orders Medication Instructions Recorded Confirmed Famotidine [Pepcid] 20 mg PO BID #60 tablet 03/17/17 03/25/17 Omeprazole [PriLOSEC] 20 mg PO DAILY #30 capsule 03/17/17 03/25/17 Ondansetron Odt [Zofran] 4 mg TL Q6H PRN #10 tablet 03/17/17 03/25/17 Venlafaxine [Effexor] 1 tab PO DAILY 03/17/17 03/25/17 oxyCODONE [Roxicodone] 5 - 10 mg PO Q6H PRN #10 tablet 03/17/17 03/25/17 - Allergies Allergies/Adverse Reactions: Allergies Allergy/AdvReac Type Severity Reaction Status Date / Time latex Allergy Hives Verified 04/11/17 15:02 tramadol Allergy Unknown Verified 04/11/17 15:02 - Social History Does the pt smoke?: No Smoking Status: Never smoker Does the pt drink ETOH?: No Does the pt have substance abuse?: No - Immunizations Immunizations are current?: Yes - POLST Patient has POLST: No PD ED PE NORMAL - Vitals Vital signs reviewed: Yes - General General: Alert and oriented X 3, No acute distress - HEENT HEENT: Moist mucous membranes - Neck Neck: Supple, no meningeal sign - Cardiac Cardiac: RRR, Strong equal pulses - Respiratory Respiratory: No respiratory distress, Clear bilaterally - Abdomen Abdomen: Soft, Non tender, Non distended - Derm Derm: Warm and dry - Extremities Extremities: No edema, No calf tenderness / cord - Neuro Neuro: Alert and oriented X 3 - Psych Psych: Normal mood, Normal affect Results - Vitals Vitals: Vital Signs - 24 hr 04/11/17 04/11/17 15:00 17:25 Temperature 36.9 C 36.5 C Heart Rate 74 74 Respiratory 19 18 Rate Blood Pressure 131/98 H 107/67 O2 Saturation 98 100 Oxygen O2 Source Room air - EKG (time done) 1449 Rate: Rate (enter#) (80) Rhythm: NSR [place]: Normal Intervals: Normal [place] QRS: Normal Ischemia: Non specific changes - Labs Labs: Laboratory Tests 04/11/17 04/11/17 04/11/17 15:18 15:18 15:18 WBC 8.7 RBC 4.88 Hgb 13.5 Hct 40.9 MCV 83.7 MCH 27.7 MCHC 33.1 RDW 13.0 Plt Count 314 MPV 7.9 Neut # 3.8 Lymph # 4.0 H [place] # 0.5 Eos # 0.3 Baso # 0.1 Absolute Nucleated RBC 0.00 Nucleated RBC % 0.0 D-Dimer 434.4 H Sodium 136 Potassium 3.5 Chloride 101 Carbon Dioxide 25 Anion Gap 10.0 BUN 15 Creatinine 1.0 Estimated GFR (MDRD) 69 L Glucose 94 Calcium 9.3 Total Bilirubin 0.5 AST 48 H ALT 66 H Alkaline Phosphatase 102 Troponin I Total Protein 7.3 Albumin 4.3 Globulin 3.0 Albumin/Globulin Ratio 1.4 Lipase 26 04/11/17 15:18 WBC RBC Hgb Hct MCV MCH MCHC RDW Plt Count MPV Neut # Lymph # [place] # Eos # Baso # Absolute Nucleated RBC Nucleated RBC % D-Dimer Sodium Potassium Chloride Carbon Dioxide Anion Gap BUN Creatinine Estimated GFR (MDRD) Glucose Calcium Total Bilirubin AST ALT Alkaline Phosphatase Troponin I < 0.04 Total Protein Albumin Globulin Albumin/Globulin Ratio Lipase - Rads (name of study) cxr Radiology: Prelim report reviewed, EMP read contemporaneously, See rad report ( No acute intrathoracic plain film abnormality. ) CTPA Radiology: Prelim report reviewed, EMP read contemporaneously, See rad report ( Negative pulmonary CT angiogram. No pulmonary emboli. ) PD MEDICAL DECISION MAKING - ED course Complexity details: reviewed results, re-evaluated patient, considered differential, d/w patient ED course: Patient is a 21 year old female who recently had mono, today felt lightheaded, dizzy and had a syncopal episode today at work. Also had intermittent sharp chest pain. No acute findings on EKG, tele, labs , CT or CXR. No PE. No dissection. No arrhythmia. Feeling normal now. Has passed out in the past as well. Patient counseled regarding signs and symptoms for which I believe and urgent re-evaluation would be necessary. Patient with good understanding of and agreement to plan and is comfortable going home at this time This document was made in part using voice recognition software. While efforts are made to proofread this document, sound alike and grammatical errors may occur. Departure - Departure Disposition: 01 Home, Self Care Clinical Impression: Dizzy Syncope Qualifiers: Syncope type: unspecified Qualified Code(s): R55 - Syncope and collapse Condition: Good Instructions: ED Syncope Vasovagal Follow-Up: FRANCIS PEDRO [Primary Care Provider] - Within 1 week Comments: Go home and rest today. Drink plenty of fluids and return if you worsen. Your tests are normal today. Discharge Date/Time: 04/11/17 17:54
[2017-04-11 15:26] LABS: BASOPHILS # (AUTO) 0.1 10^3/uL (0.0-0.1); BASOPHILS % (AUTO) 0.6 %; EOSINOPHILS # (AUTO) 0.3 10^3/uL (0.0-0.7); EOSINOPHILS % (AUTO) 3.3 %; HGB - HEMOGLOBIN 13.5 g/dL (12.0-16.0); LYMPHOCYTES % (AUTO) 45.9 %; MEAN CORPUSCULAR HEMOGLOBIN 27.7 pg (27.0-31.0); MEAN CORPUSCULAR HGB CONC 33.1 g/dL (32.0-36.0); MEAN CORPUSCULAR VOLUME 83.7 fL (81.0-99.0); MEAN PLATELET VOLUME 7.9 fL (7.9-10.8); MONOCYTES # (AUTO) 0.5 10^3/uL (0.0-1.0); NEUTROPHILS # (AUTO) 3.8 10^3/uL (1.5-6.6); NEUTROPHILS % (AUTO) 44.2 %; PLT - PLATELET COUNT 314 10^3/uL (130-450); RED BLOOD COUNT 4.88 10^6/uL (4.20-5.40); WHITE BLOOD COUNT 8.7 x10^3/uL (4.8-10.8)
--- NOTE | 2017-04-11 15:27 | XRAY Report ---
EXAM: CHEST RADIOGRAPHY EXAM DATE: 04/11/2017 03:15 PM. CLINICAL HISTORY: Chest pain, syncope. COMPARISON: None. TECHNIQUE: 1 view. FINDINGS: Lungs/Pleura: No focal opacities evident. No pleural effusion. No pneumothorax. Mediastinum: Within exam limitations, the cardiomediastinal contour is normal. Other: None. IMPRESSION: No acute intrathoracic plain film abnormality. [facility] Referring Provider Line: [phone] SITE ID: [id number]
[2017-04-11 15:39] LABS: ALBUMIN 4.3 g/dL (3.2-5.5); ALBUMIN/GLOBULIN RATIO 1.4 (1.0-2.2); BILIRUBIN,TOTAL 0.5 mg/dL (0.2-1.0); CALCIUM 9.3 mg/dL (8.5-10.3); TOTAL PROTEIN 7.3 g/dL (6.7-8.2)
[2017-04-11] MEDS ORDERED: IOPAMIDOL-300 100 ML VIAL ONE (15:59)
[2017-04-11] MEDS ORDERED: IOPAMIDOL-300 100 ML VIAL IVP ONE (16:18)
--- NOTE | 2017-04-11 16:40 | CT Report ---
EXAM: CT ANGIOGRAM CHEST EXAM DATE: 04/11/2017 04:19 PM. CLINICAL HISTORY: Chest pain, syncope. COMPARISON: None. TECHNIQUE: Routine helical imaging was performed through the chest in the pulmonary arterial phase. I V Contrast: Amt/type. Reconstructions: Coronal 3-D MIP reconstructions.Sagittal and coronal. In accordance with CT protocol optimization, one or more of the following dose reduction techniques w ere utilized for this exam: automated exposure control, adjustment of mA and/or KV based on patient s ize, or use of iterative reconstructive technique. FINDINGS: Pulmonary Arteries: Diagnostic quality: Adequate through the segmental arteries. No evidence for acute or chronic pulmona ry emboli. RV/LV is within normal limits. There is no interventricular septal bowing. There is no reflux of cont rast material in the IVC. Lungs/Pleura: No consolidation, nodules, or edema. No effusions or pneumothorax. Mediastinum: Normal. No cardiac enlargement or adenopathy. Thoracic Aorta: Unremarkable. Upper Abdomen: Unremarkable. Other: None. IMPRESSION: Negative pulmonary CT angiogram. No pulmonary emboli. [facility] Referring Provider Line: [phone] SITE ID: [id number]
[2017-04-11 17:26] VITALS: BP 107/67
== END 2017-04-11 17:54 | disposition home or self-care (01) ==
LOC: ED 14:33
DX: R55 Syncope and collapse (principal)
CPT/HCPCS: 36415; 71045; 71275; 80053; 83690; 84484; 85025; 85379; 93005; 99283; Q9967

== ENCOUNTER 2017-04-12 07:56 | Emergency (ER) | payer OTHER ==
--- NOTE | 2017-04-12 08:09 | ED Physician Documentation ---
History of Present Illness - Stated complaint Stated Complaint: CHEST PX/SOA - Chief complaint Chief Complaint: Cardiac - Additonal information Additional information: hx from pt fairly healthy 21 y/o f had mono with splenomegaly in [place] seen yesterday for cp soa and syncope had a very extensive work up including EKG labs with trop and a d dimer which was mildly elev as well as CXR and CTPA all neg/reassuirng - CTPA went through the spleen and to rupture was noted having rule out PE dissection pneumo pna ACS etc pt was reassured and dced she continued to have CP yesteray evening, better overnight then again this AM describes CP as brief lancing pain to diff spots in her chest lasting a few seconds and occurring every few min no fever no cough feels SOA no abd pain no leg swelling Review of Systems Constitutional: denies: Fever, Chills Cardiac: reports: Chest pain / pressure Respiratory: reports: Dyspnea. 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 SETTER: Other - Present Medications Home Medications: Ambulatory Orders Medication Instructions Recorded Confirmed Famotidine [Pepcid] 20 mg PO BID #60 tablet 03/17/17 04/12/17 Omeprazole [PriLOSEC] 20 mg PO DAILY #30 capsule 03/17/17 04/12/17 Ondansetron Odt [Zofran] 4 mg TL Q6H PRN #10 tablet 03/17/17 04/12/17 Venlafaxine [Effexor] 1 tab PO DAILY 03/17/17 04/12/17 oxyCODONE [Roxicodone] 5 - 10 mg PO Q6H PRN #10 tablet 03/17/17 04/12/17 Lidocaine Patch 5% [Lidoderm Patch] 1 each TOP DAILY PRN #10 patch 04/12/17 - Allergies Allergies/Adverse Reactions: Allergies Allergy/AdvReac Type Severity Reaction Status Date / Time latex Allergy Hives Verified 04/11/17 15:02 tramadol Allergy Unknown Verified 04/11/17 15:02 - Social History Does the pt smoke?: No Smoking Status: Never smoker Does the pt drink ETOH?: No Does the pt have substance abuse?: No - Immunizations Immunizations are current?: Yes - POLST Patient has POLST: No PD ED PE NORMAL - Vitals Vital signs reviewed: Yes - General General: Alert and oriented X 3 - HEENT HEENT: PERRL - Neck Neck: Supple, no meningeal sign - Cardiac Cardiac: RRR - Respiratory Respiratory: No respiratory distress, Clear bilaterally - Abdomen Abdomen: Soft, Non tender - Extremities Extremities: No deformity, No edema, No calf tenderness / cord - Neuro Neuro: Alert and oriented X 3 Results - Vitals Vitals: Vital Signs - 24 hr 04/12/17 04/12/17 04/12/17 07:59 10:07 10:16 Temperature 36.4 C L 36.8 C Heart Rate 56 L 69 Respiratory 18 16 Rate Blood Pressure 119/78 96/54 L 90/46 L O2 Saturation 100 98 04/12/17 04/12/17 04/12/17 10:17 11:03 11:08 Temperature Heart Rate 73 59 L Respiratory 16 Rate Blood Pressure 96/56 L 95/56 L 112/63 O2 Saturation 100 04/12/17 11:36 Temperature 36.2 C L Heart Rate Respiratory Rate Blood Pressure O2 Saturation Oxygen O2 Source Room air - EKG (time done) 0806 Rate: Rate (enter#) (70) Rhythm: NSR Intervals: Normal [place] (flat T waves ant) Ischemia: Non specific changes - Labs Labs: Laboratory Tests 04/12/17 04/12/17 04/12/17 08:25 08:25 08:25 WBC 6.5 RBC 4.65 Hgb 13.1 Hct 38.5 MCV 82.8 MCH 28.3 MCHC 34.1 RDW 13.2 Plt Count 265 MPV 7.9 Neut # 2.5 Lymph # 3.0 [place] # 0.6 Eos # 0.3 Baso # 0.1 Absolute Nucleated RBC 0.00 Nucleated RBC % 0.0 Sodium 139 Potassium 3.6 Chloride 108 Carbon Dioxide 24 Anion Gap 7.0 BUN 16 Creatinine 0.8 Estimated GFR (MDRD) 89 Glucose 89 Calcium 8.8 Total Bilirubin 0.5 AST 38 ALT 55 Alkaline Phosphatase 88 Total Protein 6.5 L Albumin 4.0 Globulin 2.5 Albumin/Globulin Ratio 1.6 Lipase 27 Serum HCG, Qual NEGATIVE PD MEDICAL DECISION MAKING - ED course ED course: pt has already had an extensive wup for same sx in last 24 hr will recheck labs and EKG but do not feel further radiation is warranted as sx are similar will focus primarily on sx control low BP noted - pt was laying ion her side and BP was on upper arm, repeated properly and BP is fine d/w pt and she is OK going home now Departure - Departure Disposition: Home, Self Care Clinical Impression: Chest pain Qualifiers: Chest pain type: unspecified Qualified Code(s): R07.9 - Chest pain, unspecified Condition: Good Instructions: ED Chest Pain Atypical Unkn Cause Follow-Up: FRANCIS PEDRO [Primary Care Provider] - Prescriptions: Lidocaine Patch 5% [Lidoderm Patch] 1 each TOP DAILY PRN #10 patch PRN Reason: Pain Comments: You had a very good and extensive work up yesterday for your chest pain and it does not appear you are having a heart attack, a blood clot in your lung, a tear or aneurysm of your aorta, a collapsed lung, fluid around your lungs or heart, or a lung infection. Today labs and EKG look fine too I am not certain what is causing the chest pain, but having ruled out the most dangerous causes of chest pain, I think it is safe for you to go home. Try tylenol and motrin as needed for the pain. You can also try a lidocaine patch applied to the spot that hurts the most for up to 12 hr a day. Please follow up with your PMD if not better Forms: Activity restrictions
[2017-04-12 08:34] LABS: BASOPHILS # (AUTO) 0.1 10^3/uL (0.0-0.1); BASOPHILS % (AUTO) 0.9 %; EOSINOPHILS # (AUTO) 0.3 10^3/uL (0.0-0.7); EOSINOPHILS % (AUTO) 4.8 %; HGB - HEMOGLOBIN 13.1 g/dL (12.0-16.0); LYMPHOCYTES % (AUTO) 46.6 %; MEAN CORPUSCULAR HEMOGLOBIN 28.3 pg (27.0-31.0); MEAN CORPUSCULAR HGB CONC 34.1 g/dL (32.0-36.0); MEAN CORPUSCULAR VOLUME 82.8 fL (81.0-99.0); MEAN PLATELET VOLUME 7.9 fL (7.9-10.8); MONOCYTES # (AUTO) 0.6 10^3/uL (0.0-1.0); MONOCYTES % (AUTO) 9.5 %; NEUTROPHILS # (AUTO) 2.5 10^3/uL (1.5-6.6); NEUTROPHILS % (AUTO) 38.2 %; PLT - PLATELET COUNT 265 10^3/uL (130-450); RED BLOOD COUNT 4.65 10^6/uL (4.20-5.40); RED CELL DISTRIBUTION WIDTH 13.2 % (12.0-15.0); WHITE BLOOD COUNT 6.5 x10^3/uL (4.8-10.8)
[2017-04-12] MEDS ORDERED: KETOROLAC 60 MG/2 ML VIAL IM STA (08:36)
[2017-04-12 08:44] LABS: ALBUMIN/GLOBULIN RATIO 1.6 (1.0-2.2); BILIRUBIN,TOTAL 0.5 mg/dL (0.2-1.0); CALCIUM 8.8 mg/dL (8.5-10.3); CREATININE 0.8 mg/dL (0.4-1.0); TOTAL PROTEIN 6.5 g/dL (6.7-8.2)
[2017-04-12 09:01] LABS: HCG,QUALITATIVE BLOOD NEGATIVE
[2017-04-12] MEDS ORDERED: SODIUM CHLORIDE 0.9% 1,000 ML IV ONE (10:11)
[2017-04-12] MEDS ORDERED: guaiFENesin/CODEINE 5 ML UDC PO STA (10:11)
[2017-04-12 11:09] VITALS: BP 112/63
== END 2017-04-12 12:00 | disposition home or self-care (01) ==
LOC: ED 07:56
DX: R07.9 Chest pain, unspecified (principal); R06.02 Shortness of breath
CPT/HCPCS: 36415; 80053; 83690; 84703; 85025; 93005; 96360; 96372; 99283; 99284; A9270

== ENCOUNTER 2017-05-31 13:09 | Emergency (ER) | payer OTHER ==
[2017-05-31] MEDS ORDERED: oxyCOD/ACETAMIN 5 MG/325 MG TABLET PO STA (14:27)
--- NOTE | 2017-05-31 14:50 | XRAY Preliminary Report ---
Exam: XR ELBOW 3 VIEW LT IMPRESSION: Nondisplaced radial head fracture. [facility] SITE ID: [id number]
--- NOTE | 2017-05-31 14:50 | XRAY Report ---
EXAM: LEFT ELBOW RADIOGRAPHY EXAM DATE: 05/31/2017 02:29 PM. CLINICAL HISTORY: Fall. Left elbow pain. COMPARISON: None. TECHNIQUE: 3 views. FINDINGS: Overlying blankets cause artifact. Bones: Subtle radial head fracture seen anteriorly on the oblique view. No other fracture is identifi ed. Joints: No subluxation. Small elbow joint effusion. Soft Tissues: Normal. No soft tissue swelling. IMPRESSION: Nondisplaced radial head fracture. [facility] Referring Provider Line: [phone] SITE ID: [id number]
[2017-05-31] MEDS ORDERED: KETOROLAC 60 MG/2 ML VIAL IM STA (14:59)
--- NOTE | 2017-05-31 15:13 | ED Physician Documentation ---
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 cysts : None HEENT: Other Psych: None Musculoskeletal: Other Derm: None - Past Surgical History Past Surgical History: Yes Ortho: Arthroscopic surgery /FLATWORK FOLDER: Other - Present Medications Home Medications: Ambulatory Orders Medication Instructions Recorded Confirmed Ibuprofen [Motrin] 400 mg PO Q6H PRN #20 tablet 05/31/17 Oxycodone HCl/Acetaminophen 1 each PO Q6HR PRN #10 tablet 05/31/17 [Percocet 5-325 mg Tablet] - Allergies Allergies/Adverse Reactions: Allergies Allergy/AdvReac Type Severity Reaction Status Date / Time latex Allergy Hives Verified 05/31/17 13:12 tramadol Allergy Unknown Verified 05/31/17 13:12 - Social History Does the pt smoke?: No Smoking Status: Never smoker Does the pt drink ETOH?: No Does the pt have substance abuse?: No - Immunizations Immunizations are current?: Yes - POLST Patient has POLST: No PD ED PE NORMAL - Vitals Vital signs reviewed: Yes - HEENT HEENT: Atraumatic - Neck Neck: No bony TTP - Cardiac Cardiac: RRR - Respiratory Respiratory: No respiratory distress, Clear bilaterally - Extremities Extremities: Other (severe TTP to L elbow diffusely, dec sensation diffusely from mid bicep to fingertips, + motion, brisk cap refill, radial pulse intact) Results - Vitals Vitals: Vital Signs - 24 hr 05/31/17 13:09 Temperature 36.7 C Heart Rate 82 Respiratory 18 Rate Blood Pressure 125/98 H O2 Saturation 100 Oxygen O2 Source Room air - Rads (name of study) elbow Radiology: See rad report (radial head fx, non displaced) Procedures - Splint (location) long arm Splint applied by: Nurse Type of splint: Fiberglass, Long arm Other: Patient tolerated well, No complications, Sling provided. No: Neurovascular intact (dec sensation is slowly improving) PD MEDICAL DECISION MAKING - ED course ED course: dec sensation improving after removing inflatable EMS splint, good sensation now to hand, still a little decreased to bicep region, think the inflatable splint was too tight, offered to have pt stay longer to be sure all sensation returns but she is feeling improved and wants to go Departure - Departure Disposition: Home, Self Care Clinical Impression: Radial head fracture Qualifiers: Encounter type: initial encounter Fracture type: closed Fracture alignment: nondisplaced Laterality: left Qualified Code(s): S52.125A - Nondisplaced fracture of head of left radius, initial encounter for closed fracture Condition: Good Instructions: ED Fx Elbow, ED Splint Care Fiberglass Follow-Up: CATHERINE Chow [Provider Group] (orthopedics tomorrow or Sunday at the latest ) Prescriptions: Oxycodone HCl/Acetaminophen [Percocet 5-325 mg Tablet] 1 each PO Q6HR PRN #10 tablet PRN Reason: Severe Pain Ibuprofen [Motrin] 400 mg PO Q6H PRN #20 tablet PRN Reason: Pain Comments: Wear the splint at all times But take your arm out of the sling and do some range of motion with your shoulder every day as we discussed Forms: Activity restrictions
[2017-05-31 16:02] VITALS: BP 111/84
== END 2017-05-31 16:13 | disposition home or self-care (01) ==
LOC: ED 13:09
DX: S52.125A Nondisplaced fracture of head of left radius, initial encounter for closed fracture (principal); W00.0XXA Fall on same level due to ice and snow, initial encounter
CPT/HCPCS: 29105; 73080; 96372; 99283; A9270

== ENCOUNTER 2017-07-02 09:25 | Emergency (ER) | payer OTHER ==
[2017-07-02 10:27] LABS: BASOPHILS # (AUTO) 0.1 10^3/uL (0.0-0.1); BASOPHILS % (AUTO) 0.7 %; EOSINOPHILS # (AUTO) 0.2 10^3/uL (0.0-0.7); HGB - HEMOGLOBIN 14.2 g/dL (12.0-16.0); LYMPHOCYTES # (AUTO) 3.2 10^3/uL (1.5-3.5); LYMPHOCYTES % (AUTO) 39.3 %; MEAN CORPUSCULAR HEMOGLOBIN 28.4 pg (27.0-31.0); MEAN CORPUSCULAR VOLUME 83.5 fL (81.0-99.0); MEAN PLATELET VOLUME 8.2 fL (7.9-10.8); MONOCYTES # (AUTO) 0.5 10^3/uL (0.0-1.0); NEUTROPHILS # (AUTO) 4.2 10^3/uL (1.5-6.6); PLT - PLATELET COUNT 288 10^3/uL (130-450); RED BLOOD COUNT 4.99 10^6/uL (4.20-5.40); RED CELL DISTRIBUTION WIDTH 13.8 % (12.0-15.0); WHITE BLOOD COUNT 8.2 x10^3/uL (4.8-10.8)
[2017-07-02 10:37] LABS: ALBUMIN 4.4 g/dL (3.2-5.5); ALBUMIN/GLOBULIN RATIO 1.5 (1.0-2.2); BILIRUBIN,TOTAL 0.4 mg/dL (0.2-1.0); CALCIUM 9.4 mg/dL (8.5-10.3); CREATININE 0.8 mg/dL (0.4-1.0); TOTAL PROTEIN 7.3 g/dL (6.7-8.2)
--- NOTE | 2017-07-02 11:01 | ED Physician Documentation ---
PD HPI FEMALE - Stated complaint Stated Complaint: N/V CONSTIPATION - Chief complaint Chief Complaint: Abd Pain - History obtained from History obtained from: Patient - History of Present Illness Timing - onset: Today Timing - duration: Hours Timing - details: Abrupt onset, Still present Associated symptoms: Abdominal pain, Pelvic pain. 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 denies: Chest pain / pressure Respiratory: reports: Dyspnea. denies: Cough GI: reports: Abdominal Pain (lower right), Nausea. 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 cysts : None HEENT: Other Psych: None Musculoskeletal: Other Derm: None - Past Surgical History Past Surgical History: Yes Ortho: Arthroscopic surgery /VISUAL DISPLAY MANAGER: Other - Present Medications Home Medications: Ambulatory Orders Medication Instructions Recorded Confirmed Ibuprofen [Motrin] 400 mg PO Q6H PRN #20 tablet 05/31/17 Oxycodone HCl/Acetaminophen 1 each PO Q6HR PRN #10 tablet 05/31/17 [Percocet 5-325 mg Tablet] Docusate Sodium 100 mg PO BID #30 capsule 07/02/17 HYDROcod/ACETAM 5/325 [[place] 5/325] 1 tab PO Q6H PRN #15 tablet 07/02/17 Ibuprofen [Motrin] 600 mg PO TID #30 tab 07/02/17 Ondansetron Odt [Zofran] 4 mg TL Q6H PRN #15 tablet 07/02/17 - Allergies Allergies/Adverse Reactions: Allergies Allergy/AdvReac Type Severity Reaction Status Date / Time latex Allergy Hives Verified 07/02/17 10:11 tramadol Allergy Unknown Verified 07/02/17 10:11 - Social History Does the pt smoke?: No Smoking Status: Never smoker Does the pt drink ETOH?: No Does the pt have substance abuse?: No - Immunizations Immunizations are current?: Yes - POLST Patient has POLST: No PD ED PE NORMAL - Vitals Vital signs reviewed: Yes - General General: Alert and oriented X 3, No acute distress, Well developed/nourished - HEENT HEENT: Pharynx benign - Neck Neck: Supple, no meningeal sign, No adenopathy - Cardiac Cardiac: RRR, No murmur - Respiratory Respiratory: Clear bilaterally - Abdomen Abdomen: Normal bowel sounds, Soft, Non distended, No organomegaly, Other ( tender lower abd suprapubic and right sided with guarding but no percussion nor rebound tenderness. ) - Back Back: No CVA TTP - Derm Derm: Normal color, Warm and dry Results - Vitals Vitals: Vital Signs - 24 hr 07/02/17 07/02/17 09:45 13:01 Temperature 36.6 C 36.5 C Heart Rate 67 68 Respiratory 20 20 Rate Blood Pressure 141/95 H 119/97 H O2 Saturation 100 100 Oxygen O2 Source Room air - Labs Labs: Laboratory Tests 07/02/17 07/02/17 07/02/17 10:02 10:02 10:02 WBC RBC Hgb Hct MCV MCH MCHC RDW Plt Count MPV Neut # Lymph # [place] # Eos # Baso # Absolute Nucleated RBC Nucleated RBC % Sodium Potassium Chloride Carbon Dioxide Anion Gap BUN Creatinine Estimated GFR (MDRD) Glucose Calcium Total Bilirubin AST ALT Alkaline Phosphatase Total Protein Albumin Globulin Albumin/Globulin Ratio Lipase HCG, Quant < 0.60 Urine Color YELLOW Urine Clarity CLEAR Urine pH 5.5 Ur Specific [place] >=1.030 H >=1.030 H Urine Protein NEGATIVE Urine Glucose (UA) NEGATIVE Urine Ketones NEGATIVE Urine Occult Blood NEGATIVE Urine Nitrite NEGATIVE Urine Bilirubin NEGATIVE Urine Urobilinogen 0.2 (NORMAL) Ur Leukocyte Esterase NEGATIVE Ur Microscopic Review NOT INDICATED Urine Culture Comments NOT INDICATED Urine HCG, Qual NEGATIVE 07/02/17 07/02/17 10:14 10:14 WBC 8.2 RBC 4.99 Hgb 14.2 Hct 41.7 MCV 83.5 MCH 28.4 MCHC 34.0 RDW 13.8 Plt Count 288 MPV 8.2 Neut # 4.2 Lymph # 3.2 [place] # 0.5 Eos # 0.2 Baso # 0.1 Absolute Nucleated RBC 0.01 Nucleated RBC % 0.1 Sodium 136 Potassium 3.9 Chloride 104 Carbon Dioxide 24 Anion Gap 8.0 BUN 12 Creatinine 0.8 Estimated GFR (MDRD) 89 Glucose 90 Calcium 9.4 Total Bilirubin 0.4 AST 22 ALT 21 Alkaline Phosphatase 58 Total Protein 7.3 Albumin 4.4 Globulin 2.9 Albumin/Globulin Ratio 1.5 Lipase 21 L HCG, Quant Urine Color Urine Clarity Urine pH Ur Specific [place] Urine Protein Urine Glucose (UA) Urine Ketones Urine Occult Blood Urine Nitrite Urine Bilirubin Urine Urobilinogen Ur Leukocyte Esterase Ur Microscopic Review Urine Culture Comments Urine HCG, Qual - Rads (name of study) pelvic U/S Radiology: Prelim report reviewed (right hemorrhagic cyst of ovary, with mild amount free fluid. ) PD MEDICAL DECISION MAKING - ED course Complexity details: reviewed results (has hemorrhagic cyst with some free fluid on right, where her pain is mainly. not . ), considered differential, d/ w patient Departure - Departure Disposition: 01 Home, Self Care Clinical Impression: Pelvic pain, Hemorrhagic cyst Condition: Stable Record reviewed to determine appropriate education?: Yes Instructions: ED Cyst Ovarian Follow-Up: FRANCIS PEDRO [Primary Care Provider] - Prescriptions: Docusate Sodium 100 mg PO BID #30 capsule HYDROcod/ACETAM 5/325 [[place] 5/325] 1 tab PO Q6H PRN #15 tablet PRN Reason: Pain Ibuprofen [Motrin] 600 mg PO TID #30 tab Ondansetron Odt [Zofran] 4 mg TL Q6H PRN #15 tablet PRN Reason: Nausea / Vomiting Comments: Drink lots of fluids. Use ibuprofen 3 times a day for the inflammation from the hemorrhagic ovarian cyst. Add hydrocodone if needed for worse pain. Ondansetron if needed for nausea. Recheck if not improving over the next 2-3 days. Rest at home for a couple of days. Also use a daily stool softener to help with potential constipation. Forms: Activity restrictions Discharge Date/Time: 07/02/17 13:33
[2017-07-02 11:03] LABS: BILIRUBIN,URINE NEGATIVE (NEGATIVE); GLUCOSE, URINE (UA) NEGATIVE (NEGATIVE); KETONES,URINE (UA) NEGATIVE (NEGATIVE); LEUKOCYTE ESTERASE, URINE NEGATIVE (NEGATIVE); NITRITE,URINE NEGATIVE (NEGATIVE); OCCULT BLOOD,URINE NEGATIVE (NEGATIVE); PH,URINE 5.5 PH (5.0-7.5); PROTEIN,URINE NEGATIVE (NEGATIVE); UROBILINOGEN,URINE 0.2 (NORMAL) E.U./dL (NORMAL)
[2017-07-02 11:07] LABS: CLARITY,URINE CLEAR (CLEAR)
[2017-07-02 11:08] LABS: HCG UR QUAL NEGATIVE
[2017-07-02] MEDS ORDERED: ACETAMINOPHEN 325 MG TABLET PO STA (11:21)
[2017-07-02] MEDS ORDERED: DOCUSATE SODIUM 100 MG CAPSULE PO STA (11:21)
--- NOTE | 2017-07-02 12:27 | Ultrasound Report ---
PELVIC ULTRASOUND: 07/02/2017 CLINICAL INDICATION: Pain. COMPARISON: 01/08/2017. TECHNIQUE: Transabdominal pelvic ultrasound performed for global evaluation. Transvaginal pelvic ultrasound performed for detailed evaluation. Real-time scanning performed and static images obtained with doppler. FINDINGS: The uterus is retroverted, measuring 7.5 x 4.5 x 3.5 cm. The endometrial echo complex measures 12 mm. No focal myometrial lesion is seen. The right ovary measures 4.6 x 3.8 x 2.9 cm, and contains a hemorrhagic cyst, measuring 2.8 x 2.2 x 1.8 cm. The left ovary measures 3.1 x 2.9 x 1.5 cm, and is unremarkable. Bilateral normal ovarin flow is documented. A small amount of free fluid is present. IMPRESSION: HEMORRHAGIC RIGHT OVARIAN CYST. SMALL AMOUNT OF FREE FLUID. TD: 07/02/2017 12:26 MTDD
[2017-07-02 13:02] VITALS: BP 119/97
== END 2017-07-02 13:33 | disposition home or self-care (01) ==
LOC: ED 09:25
DX: N83.201 Unspecified ovarian cyst, right side (principal); R10.2 Pelvic and perineal pain
CPT/HCPCS: 76830; 76856; 80053; 81003; 81025; 83690; 84702; 85025; 93976; 99283; A9270; 36415; 81001; 87086

== ENCOUNTER 2017-07-05 20:29 | Emergency (ER) | payer OTHER ==
[2017-07-05 22:02] LABS: BASOPHILS # (AUTO) 0.1 10^3/uL (0.0-0.1); BASOPHILS % (AUTO) 0.7 %; EOSINOPHILS # (AUTO) 0.2 10^3/uL (0.0-0.7); EOSINOPHILS % (AUTO) 1.8 %; HGB - HEMOGLOBIN 13.9 g/dL (12.0-16.0); LYMPHOCYTES # (AUTO) 3.9 10^3/uL (1.5-3.5); LYMPHOCYTES % (AUTO) 45.7 %; MEAN CORPUSCULAR HEMOGLOBIN 27.8 pg (27.0-31.0); MEAN CORPUSCULAR HGB CONC 33.5 g/dL (32.0-36.0); MEAN CORPUSCULAR VOLUME 83.2 fL (81.0-99.0); MEAN PLATELET VOLUME 8.1 fL (7.9-10.8); MONOCYTES # (AUTO) 0.6 10^3/uL (0.0-1.0); MONOCYTES % (AUTO) 6.6 %; NEUTROPHILS # (AUTO) 3.9 10^3/uL (1.5-6.6); NEUTROPHILS % (AUTO) 45.2 %; PLT - PLATELET COUNT 287 10^3/uL (130-450); RED BLOOD COUNT 4.99 10^6/uL (4.20-5.40); RED CELL DISTRIBUTION WIDTH 13.9 % (12.0-15.0); WHITE BLOOD COUNT 8.6 x10^3/uL (4.8-10.8)
[2017-07-05 22:09] LABS: ALBUMIN 4.4 g/dL (3.2-5.5); ALBUMIN/GLOBULIN RATIO 1.7 (1.0-2.2); BILIRUBIN,TOTAL 0.5 mg/dL (0.2-1.0); CALCIUM 9.1 mg/dL (8.5-10.3); CREATININE 0.8 mg/dL (0.4-1.0)
[2017-07-05 22:45] LABS: BILIRUBIN,URINE NEGATIVE (NEGATIVE); GLUCOSE, URINE (UA) NEGATIVE (NEGATIVE); KETONES,URINE (UA) NEGATIVE (NEGATIVE); LEUKOCYTE ESTERASE, URINE NEGATIVE (NEGATIVE); NITRITE,URINE NEGATIVE (NEGATIVE); OCCULT BLOOD,URINE NEGATIVE (NEGATIVE); PH,URINE 5.5 PH (5.0-7.5); PROTEIN,URINE NEGATIVE (NEGATIVE); UROBILINOGEN,URINE 0.2 (NORMAL) E.U./dL (NORMAL)
[2017-07-05 22:46] LABS: CLARITY,URINE CLEAR (CLEAR)
[2017-07-05 22:49] LABS: HCG UR QUAL NEGATIVE
--- NOTE | 2017-07-05 23:21 | ED Physician Documentation ---
PD HPI ABD PAIN - Stated complaint Stated Complaint: L RT ABD PX/VOM/FEV - Chief complaint Chief Complaint: Abd Pain - History obtained from History obtained from: Patient - History of Present Illness Timing - onset: How many days ago (3-4) Timing - duration: Days Timing - details: Abrupt onset, Waxing and waning Pain level now: 8 Quality: Pain Location: RLQ, Suprapubic, LLQ Radiation: Other (no radiation) Improved by: Laying still Worsened by: Moving, Palpation Associated symptoms: Nausea, Vomiting. No: Fever Similar symptoms before: Diagnosis (hemorrhagic ovarian cyst) Recently seen: Emergency Dept - Additional information Additional information: T+R 2 days ago for pelvic pain, diagnosed with hemorrhagic ovarian cyst, had improvement with hydrocodone and zofran but pain returned this evening, nausea and vomiting. She denies fever but has had chills and sweats. Review of Systems Constitutional: reports: Chills, Sweats. 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: Endometriosis, Ovarian cysts : None HEENT: Other Psych: None Musculoskeletal: Other Derm: None - Past Surgical History Past Surgical History: Yes Ortho: Arthroscopic surgery /CRYSTAL GAZER: Other - Present Medications Home Medications: Ambulatory Orders Medication Instructions Recorded Confirmed Ibuprofen [Motrin] 400 mg PO Q6H PRN #20 tablet 05/31/17 07/05/17 Oxycodone HCl/Acetaminophen 1 each PO Q6HR PRN #10 tablet 05/31/17 07/05/17 [Percocet 5-325 mg Tablet] Docusate Sodium 100 mg PO BID #30 capsule 07/02/17 07/05/17 HYDROcod/ACETAM 5/325 [[place] 5/325] 1 tab PO Q6H PRN #15 tablet 07/02/17 Ibuprofen [Motrin] 600 mg PO TID #30 tab 07/02/17 07/05/17 Ondansetron Odt [Zofran] 4 mg TL Q6H PRN #15 tablet 07/02/17 07/05/17 Promethazine [Phenergan] 25 - 50 mg PO Q6H PRN #10 tab 07/06/17 oxyCODONE/ACET 5/325 [Percocet 5 1 - 2 each PO Q6H PRN #14 tablet 07/06/17 mg/325 mg] - Allergies Allergies/Adverse Reactions: Allergies Allergy/AdvReac Type Severity Reaction Status Date / Time latex Allergy Hives Verified 07/05/17 20:45 tramadol Allergy Unknown Verified 07/05/17 20:45 - Social History Does the pt smoke?: No Smoking Status: Never smoker Does the pt drink ETOH?: No Does the pt have substance abuse?: No - Immunizations Immunizations are current?: Yes - POLST Patient has POLST: No PD ED PE NORMAL - Vitals Vital signs reviewed: Yes - General General: Alert and oriented X 3, No acute distress, Well developed/nourished - HEENT HEENT: Moist mucous membranes - Cardiac Cardiac: RRR, No murmur - Respiratory Respiratory: No respiratory distress, Clear bilaterally - Abdomen Abdomen: Normal bowel sounds, Soft, Non tender, Non distended - Back Back: No CVA TTP - Derm Derm: Normal color, Warm and dry Results - Vitals Vitals: Oxygen O2 Source Room air - Labs Labs: Laboratory Tests 07/05/17 07/05/17 07/05/17 21:47 21:47 22:11 WBC 8.6 RBC 4.99 Hgb 13.9 Hct 41.5 MCV 83.2 MCH 27.8 MCHC 33.5 RDW 13.9 Plt Count 287 MPV 8.1 Neut # 3.9 Lymph # 3.9 H [place] # 0.6 Eos # 0.2 Baso # 0.1 Absolute Nucleated RBC 0.00 Nucleated RBC % 0.0 Sodium 136 Potassium 3.8 Chloride 103 Carbon Dioxide 27 Anion Gap 6.0 BUN 15 Creatinine 0.8 Estimated GFR (MDRD) 89 Glucose 95 Calcium 9.1 Total Bilirubin 0.5 AST 23 ALT 21 Alkaline Phosphatase 62 Total Protein 7.0 Albumin 4.4 Globulin 2.6 Albumin/Globulin Ratio 1.7 Lipase 20 L Urine Color YELLOW Urine Clarity CLEAR Urine pH 5.5 Ur Specific [place] >=1.030 H Urine Protein NEGATIVE Urine Glucose (UA) NEGATIVE Urine Ketones NEGATIVE Urine Occult Blood NEGATIVE Urine Nitrite NEGATIVE Urine Bilirubin NEGATIVE Urine Urobilinogen 0.2 (NORMAL) Ur Leukocyte Esterase NEGATIVE Ur Microscopic Review NOT INDICATED Urine Culture Comments NOT INDICATED Urine HCG, Qual 07/05/17 22:11 WBC RBC Hgb Hct MCV MCH MCHC RDW Plt Count MPV Neut # Lymph # [place] # Eos # Baso # Absolute Nucleated RBC Nucleated RBC % Sodium Potassium Chloride Carbon Dioxide Anion Gap BUN Creatinine Estimated GFR (MDRD) Glucose Calcium Total Bilirubin AST ALT Alkaline Phosphatase Total Protein Albumin Globulin Albumin/Globulin Ratio Lipase Urine Color Urine Clarity Urine pH Ur Specific [place] >=1.030 H Urine Protein Urine Glucose (UA) Urine Ketones Urine Occult Blood Urine Nitrite Urine Bilirubin Urine Urobilinogen Ur Leukocyte Esterase Ur Microscopic Review Urine Culture Comments Urine HCG, Qual NEGATIVE PD MEDICAL DECISION MAKING - ED course Complexity details: reviewed old records, reviewed results, re-evaluated patient , considered differential, d/w patient ED course: reassuring w/u as well as nontender on abd. exam. She was reporting waxing and waning abdominal pain as well as recurrent nausea, and the prescribed medications (zofran, vicodin), while initially effective, were not providing adequate relief tonight. Given percocet and phenergan in ED and discharged with rx for same Departure - Departure Disposition: Home, Self Care Clinical Impression: Pelvic pain Condition: Good Instructions: ED Cyst Ovarian Follow-Up: FRANCIS PEDRO [Primary Care Provider] - Within 3 Days Prescriptions: oxyCODONE/ACET 5/325 [Percocet 5 mg/325 mg] 1 - 2 each PO Q6H PRN #14 tablet PRN Reason: Pain Promethazine [Phenergan] 25 - 50 mg PO Q6H PRN #10 tab PRN Reason: Nausea / Vomiting Forms: Activity restrictions Discharge Date/Time: 07/06/17 00:23
[2017-07-05 23:41] VITALS: BP 120/88
[2017-07-06] MEDS ORDERED: oxyCOD/ACETAMIN 5 MG/325 MG TABLET PO STA (00:10)
[2017-07-06] MEDS ORDERED: PROMETHAZINE 25 MG TABLET PO STA (00:10)
== END 2017-07-06 00:23 | disposition home or self-care (01) ==
LOC: ED 20:29
DX: R10.2 Pelvic and perineal pain (principal); N83.209 Unspecified ovarian cyst, unspecified side; N80.9 Endometriosis, unspecified
CPT/HCPCS: 36415; 80053; 81003; 81025; 83690; 85025; 99283; A9270; Q0169; 81001; 87086

== ENCOUNTER 2017-07-09 23:46 | Emergency (ER) | payer OTHER ==
[2017-07-10 00:04] LABS: BILIRUBIN,URINE NEGATIVE (NEGATIVE); GLUCOSE, URINE (UA) NEGATIVE (NEGATIVE); KETONES,URINE (UA) NEGATIVE (NEGATIVE); LEUKOCYTE ESTERASE, URINE NEGATIVE (NEGATIVE); NITRITE,URINE NEGATIVE (NEGATIVE); OCCULT BLOOD,URINE LARGE (NEGATIVE); PROTEIN,URINE NEGATIVE (NEGATIVE); UROBILINOGEN,URINE 0.2 (NORMAL) E.U./dL (NORMAL)
[2017-07-10 00:07] LABS: CLARITY,URINE CLEAR (CLEAR); HCG UR QUAL NEGATIVE
[2017-07-10 00:12] LABS: BACTERIA,URINE Few /HPF (None Seen); RBC,URINE TNTC /HPF (0-5); SQUAMOUS EPITHELIAL CELL,UR MANY Squamous (<= Few)
[2017-07-10 00:28] LABS: BASOPHILS # (AUTO) 0.1 10^3/uL (0.0-0.1); BASOPHILS % (AUTO) 0.9 %; EOSINOPHILS # (AUTO) 0.2 10^3/uL (0.0-0.7); EOSINOPHILS % (AUTO) 2.5 %; HGB - HEMOGLOBIN 13.6 g/dL (12.0-16.0); LYMPHOCYTES # (AUTO) 3.9 10^3/uL (1.5-3.5); LYMPHOCYTES % (AUTO) 55.9 %; MEAN CORPUSCULAR HEMOGLOBIN 27.9 pg (27.0-31.0); MEAN CORPUSCULAR HGB CONC 33.5 g/dL (32.0-36.0); MEAN CORPUSCULAR VOLUME 83.3 fL (81.0-99.0); MEAN PLATELET VOLUME 7.9 fL (7.9-10.8); MONOCYTES # (AUTO) 0.5 10^3/uL (0.0-1.0); MONOCYTES % (AUTO) 7.7 %; NEUTROPHILS # (AUTO) 2.3 10^3/uL (1.5-6.6); PLT - PLATELET COUNT 309 10^3/uL (130-450); RED BLOOD COUNT 4.89 10^6/uL (4.20-5.40)
[2017-07-10 00:45] LABS: ALBUMIN 4.3 g/dL (3.2-5.5); ALBUMIN/GLOBULIN RATIO 1.5 (1.0-2.2); ALKALINE PHOSPHATASE 62 IU/L (42-121); ALT ALANINE AMINOTRANSFERASE 29 IU/L (10-60); AST ASPARTATE AMINOTRANSFERASE 28 IU/L (10-42); BILIRUBIN,TOTAL < 0.2 mg/dL (0.2-1.0); BUN - BLOOD UREA NITROGEN 11 mg/dL (6-20); CALCIUM 9.2 mg/dL (8.5-10.3); CARBON DIOXIDE - CO2 26 mmol/L (21-32); CHLORIDE 106 mmol/L (101-111); CREATININE 0.7 mg/dL (0.4-1.0); GFR - MDRD 104 (>89); GLUCOSE 92 mg/dL (70-100); LIPASE 26 U/L (22-51); SODIUM 138 mmol/L (135-145); TOTAL PROTEIN 7.2 g/dL (6.7-8.2)
--- NOTE | 2017-07-10 01:18 | Ultrasound Report ---
Refer to pelvic ultrasound report. Referring Provider Line: [phone] SITE ID: [id number]
--- NOTE | 2017-07-10 01:18 | Ultrasound Report ---
EXAM: PELVIC ULTRASOUND EXAM DATE: 07/10/2017 01:06 AM. CLINICAL HISTORY: Abdominal pain COMPARISON: 07/02/2017. TECHNIQUE: Realtime transabdominal pelvic scan performed to identify the uterus and adnexa and as an overview of other pelvic structures, followed by transvaginal scan to provide greater detail of the u terus and adnexa, with static image documentation. FINDINGS: Uterus: 7.3 x 2.9 x 4.8 cm, volume 52 cc. Normal overall size and echotexture. Masses: None. Endometrium: 3 mm. Normal. Cervix: Unremarkable. Right Ovary: 4.2 x 3.4 x 2.5 cm, volume 18 cc. Normal echotexture and blood flow. Left Ovary: 3.4 x 1.5 x 2.9 cm, volume 8 cc. Normal echotexture and blood flow. Free Fluid: None. Other: None. IMPRESSION: Negative pelvic ultrasound. [facility] Referring Provider Line: [phone] SITE ID: [id number]
[2017-07-10] MEDS ORDERED: KETOROLAC 60 MG/2 ML VIAL IVP STA (01:25)
--- NOTE | 2017-07-10 01:29 | ED Physician Documentation ---
PD HPI ABD PAIN - Stated complaint Stated Complaint: ABD PAIN - Chief complaint Chief Complaint: Abd Pain - History obtained from History obtained from: Patient, Friend - History of Present Illness Timing - onset: How many weeks ago (1) Timing - details: Gradual onset, Still present, Intermittant Quality: Cramping, Aching Location: RLQ Associated symptoms: Nausea. No: Vomiting, Diarrhea, Constipation Similar symptoms before: Work up / diagnostics, Treatment Recently seen: Emergency Dept - Additional information Additional information: Patient is a 21 year old female with multiple ER visits and a history of ovarian cyst who is presenting to the emergency department for abdominal pain. Patient has had extensive work up including ultrasound and CT and was found a hemorrhagic cyst but no other significant abnormalities. Patient states that she still had pain even though she was taking her percocet. Review of Systems Constitutional: reports: Chills. denies: Fever Eyes: reports: Reviewed and negative Ears: reports: Reviewed and negative Nose: reports: Reviewed and negative Throat: reports: Reviewed and negative Cardiac: denies: Chest pain / pressure, Palpitations Respiratory: denies: Dyspnea, Cough GI: reports: Abdominal Pain, Nausea. denies: Vomiting, Constipation, Diarrhea : reports: Vaginal bleeding. denies: Discharge Skin: denies: Rash, Lesions Musculoskeletal: reports: Reviewed and negative Neurologic: reports: Generalized weakness. 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 cysts : None HEENT: Other Psych: None Musculoskeletal: Other Derm: None - Past Surgical History Past Surgical History: Yes Ortho: Arthroscopic surgery /FRANCHISE BUSINESS CONSULTANT: Other - Present Medications Home Medications: Ambulatory Orders Medication Instructions Recorded Confirmed Ibuprofen [Motrin] 400 mg PO Q6H PRN #20 tablet 05/31/17 07/05/17 Oxycodone HCl/Acetaminophen 1 each PO Q6HR PRN #10 tablet 05/31/17 07/05/17 [Percocet 5-325 mg Tablet] Docusate Sodium 100 mg PO BID #30 capsule 07/02/17 07/05/17 HYDROcod/ACETAM 5/325 [[place] 5/325] 1 tab PO Q6H PRN #15 tablet 07/02/17 Ibuprofen [Motrin] 600 mg PO TID #30 tab 07/02/17 07/05/17 Ondansetron Odt [Zofran] 4 mg TL Q6H PRN #15 tablet 07/02/17 07/05/17 Promethazine [Phenergan] 25 - 50 mg PO Q6H PRN #10 tab 07/06/17 oxyCODONE/ACET 5/325 [Percocet 5 1 - 2 each PO Q6H PRN #14 tablet 07/06/17 mg/325 mg] - Allergies Allergies/Adverse Reactions: Allergies Allergy/AdvReac Type Severity Reaction Status Date / Time latex Allergy Hives Verified 07/09/17 23:51 tramadol Allergy Unknown Verified 07/09/17 23:51 - Social History Does the pt smoke?: No Smoking Status: Never smoker Does the pt drink ETOH?: No Does the pt have substance abuse?: No - Immunizations Immunizations are current?: Yes - POLST Patient has POLST: No PD ED PE NORMAL - Vitals Vital signs reviewed: Yes - General General: Alert and oriented X 3, No acute distress - HEENT HEENT: Atraumatic, Moist mucous membranes - Neck Neck: Supple, no meningeal sign - Cardiac Cardiac: RRR - Respiratory Respiratory: No respiratory distress - Derm Derm: Normal color, No rash - Extremities Extremities: No deformity - Neuro Neuro: Alert and oriented X 3 Eye Opening: Spontaneous Motor: Obeys Commands Verbal: Oriented GCS Score: 15 PD ED PE EXPANDED - Abdomen Abdomen: Tender to palpation, Generalized/diffuse. No: Rebound, Guarding Results - Vitals Vitals: Vital Signs - 24 hr 07/09/17 07/10/17 23:48 02:00 Temperature 36.7 C Heart Rate 83 63 Respiratory 16 15 Rate Blood Pressure 141/102 H 113/61 O2 Saturation 98 99 Oxygen O2 Source Room air - Labs Labs: Laboratory Tests 07/09/17 07/10/17 07/10/17 23:54 00:05 00:05 WBC 7.0 RBC 4.89 Hgb 13.6 Hct 40.8 MCV 83.3 MCH 27.9 MCHC 33.5 RDW 14.0 Plt Count 309 MPV 7.9 Neut # 2.3 Lymph # 3.9 H [place] # 0.5 Eos # 0.2 Baso # 0.1 Absolute Nucleated RBC 0.01 Nucleated RBC % 0.1 Sodium 138 Potassium 3.9 Chloride 106 Carbon Dioxide 26 Anion Gap 6.0 BUN 11 Creatinine 0.7 Estimated GFR (MDRD) 104 Glucose 92 Calcium 9.2 Total Bilirubin < 0.2 L AST 28 ALT 29 Alkaline Phosphatase 62 Total Protein 7.2 Albumin 4.3 Globulin 2.9 Albumin/Globulin Ratio 1.5 Lipase 26 Urine Color YELLOW Urine Clarity CLEAR Urine pH 7.0 Ur Specific [place] 1.015 Urine Protein NEGATIVE Urine Glucose (UA) NEGATIVE Urine Ketones NEGATIVE Urine Occult Blood LARGE H Urine Nitrite NEGATIVE Urine Bilirubin NEGATIVE Urine Urobilinogen 0.2 (NORMAL) Ur Leukocyte Esterase NEGATIVE Urine RBC TNTC H Urine WBC 0-3 Ur Squamous Epith Cells MANY Squamous H Urine Bacteria Few Ur Microscopic Review INDICATED Urine Culture Comments NOT INDICATED Urine HCG, Qual NEGATIVE - Rads (name of study) pelvic ultrasound Radiology: Final report received (normal) PD MEDICAL DECISION MAKING - ED course Complexity details: reviewed old records, reviewed results, re-evaluated patient , considered differential, d/w patient ED course: Patient was seen and examined at bedside. IV access was gained and labs were drawn. Urine was collected and imaging was ordered. Patient's diagnostics were all within normal limits. Patient was treated with toradol for pain and was stable for discharge with outpatient follow up. Departure - Departure Disposition: 01 Home, Self Care Clinical Impression: Cyst of ovary Condition: Good Instructions: Cysts Ovarian Follow-Up: FRANCIS PEDRO [Primary Care Provider] - Within 3 Days Comments: Your diagnostics today were within normal limits. there are no major abnormalities on your blood work, urine or ultrasound. You should alternate between motrin and tylenol as needed for pain. You should follow up with your doctor if your symptoms persist. You may return to the emergency department at any time for new, worsening or uncontrollable symptoms. Discharge Date/Time: 07/10/17 02:05
[2017-07-10 02:04] VITALS: BP 113/61
== END 2017-07-10 02:05 | disposition home or self-care (01) ==
LOC: ED 23:46
DX: N83.209 Unspecified ovarian cyst, unspecified side (principal)
CPT/HCPCS: 36415; 76830; 76856; 80053; 81001; 81003; 81025; 83690; 85025; 87086; 93976; 96374; 99283

== ENCOUNTER 2017-07-28 13:24 | Outpatient (CLI) | payer OTHER | END 2017-07-28 13:25 | disposition EMS.NT | LOC: EMS 13:24 | PROVIDERS: ATTEND Surgery | DX: S61.412A Laceration without foreign body of left hand, initial encounter (principal); W26.0XXA Contact with knife, initial encounter; Y93.G1 Activity, food preparation and clean up; Y92.039 Unspecified place in apartment as the place of occurrence of the external cause ==

== ENCOUNTER 2017-07-28 14:00 | Emergency (ER) | payer OTHER ==
[2017-07-28 14:06] VITALS: BP 123/75
--- NOTE | 2017-07-28 14:21 | ED Physician Documentation ---
PD HPI UPPER EXT INJURY - Stated complaint Stated Complaint: HAND LAC - Chief complaint Chief Complaint: Laceration - History obtained from History obtained from: Patient - History of Present Illness Location: Left, Hand Type of injury: Laceration (L palm) Where injury occurred: Home Timing - onset: How many hours ago (1) Timing - duration: Hours (1) Timing - details: Abrupt onset Pain level max: 3 Pain level now: 3 Improved by: Rest Worsened by: Moving, Palpating Associated symptoms: No: Weakness, Numbness, Tingling, Swelling Contributing factors: No: Anticoagulated Recently seen: No: Not recently seen - Additonal information Additional information: Patient is right-handed and cut the palm of the left hand while removing the pit from an avocado. 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 UP WORKER: Other - Allergies Allergies/Adverse Reactions: Allergies Allergy/AdvReac Type Severity Reaction Status Date / Time latex Allergy Hives Verified 07/09/17 23:51 tramadol Allergy Unknown Verified 07/09/17 23:51 - Social History Does the pt smoke?: No Smoking Status: Never smoker Does the pt drink ETOH?: No Does the pt have substance abuse?: No - Immunizations Immunizations are current?: Yes - POLST Patient has POLST: No PD ED PE NORMAL - Vitals Vital signs reviewed: Yes - General General: Alert and oriented X 3, No acute distress - Derm Derm: Warm and dry - Neuro Neuro: Alert and oriented X 3 - Psych Psych: Normal mood, Normal affect PD ED PE EXPANDED - Extremities KAILEY UE/Hands Visual: 1 - laceration (0.5cm, linear, subcutaneous. NVI. no tendon injury.) Results - Vitals Vitals: Vital Signs - 24 hr 07/28/17 14:03 Temperature 36.9 C Heart Rate 74 Respiratory 16 Rate Blood Pressure 123/75 O2 Saturation 98 Oxygen O2 Source Room air Procedures - Laceration (location) L palm Length in cm: 0.5 Wound type: Linear, Into subcut fat, Clean Neurovascular status: Sensory intact, Motor intact, Vascular intact Tendon involvement: Tendon intact. No: Tendon Injury Wound Preparation: Irrigated copiously NS, Wound explored, To the base. No: FB identified, FB removed Skin layer closure: Dermabond Other: Patient tolerated well, No complications, Dressing applied (finger splint ), Tetanus UTD Complexity: Simple PD MEDICAL DECISION MAKING - ED course Complexity details: considered differential, d/w patient, d/w family ED course: Patient is a 21-year-old who presents to the emergency department the laceration to the left palm. This was repaired with Dermabond. Tolerated well. Finger splint applied to immobilize the area. Warnings of infection and instructions on wound care given at bedside. Also counseled on how to minimize scarring. Patient counseled regarding signs and symptoms for which I believe and urgent re-evaluation would be necessary. Patient with good understanding of and agreement to plan and is comfortable going home at this time This document was made in part using voice recognition software. While efforts are made to proofread this document, sound alike and grammatical errors may occur. We also discussed sutures versus Dermabond and the risks and benefits of each, she prefers Dermabond at this time. Departure - Departure Disposition: 01 Home, Self Care Clinical Impression: Laceration Condition: Good Instructions: ED Laceration Hand Follow-Up: FRANCIS PEDRO [Primary Care Provider] - Within 1 week (for wound check) Comments: Wear the splint for the next 3-4 days, then remove it. Keep the wound clean. Return for redness, swelling or drainage from the wound. Discharge Date/Time: 07/28/17 14:41
== END 2017-07-28 14:41 | disposition home or self-care (01) ==
LOC: ED 14:00
DX: S61.412A Laceration without foreign body of left hand, initial encounter (principal); W26.0XXA Contact with knife, initial encounter; Y93.G1 Activity, food preparation and clean up
CPT/HCPCS: 12001; 99282; 99283

== ENCOUNTER 2017-07-30 09:55 | Emergency (ER) | payer OTHER ==
[2017-07-30 10:10] VITALS: BP 126/80
--- NOTE | 2017-07-30 10:25 | ED Physician Documentation ---
PD HPI WOUND RECHECK - Stated complaint Stated Complaint: WOUND CHECK - Chief complaint Chief Complaint: Wound - Histroy obtained from History obtained from: Patient - History of Present Illness Location: Left Hand Timing - onset: How many days ago (2) Associated symptoms: Swelling, Pain Similar symptoms before: Diagnosis (hand lac) Recently seen: Emergency Dept - Additional information Additional information: 21-year-old female stabbed herself of the hand with a paring knife 2 days ago while she was cutting and avocado. She came to the emergency department and had the lac Dermabonded. She has been using her hand normally and now has some swelling and ecchymosis to the hand as well as restriction of movement. Review of Systems Constitutional: denies: Fever Eyes: denies: Decreased vision Respiratory: denies: Cough : denies: Dysuria Skin: reports: Laceration (s) Musculoskeletal: reports: Extremity pain. 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 : None HEENT: Other Psych: None Musculoskeletal: Other Derm: None - Past Surgical History Past Surgical History: Yes Ortho: Arthroscopic surgery /SECURITY SYSTEMS INTEGRATOR: Other - Allergies Allergies/Adverse Reactions: Allergies Allergy/AdvReac Type Severity Reaction Status Date / Time latex Allergy Hives Verified 07/09/17 23:51 tramadol Allergy Unknown Verified 07/09/17 23:51 - Social History Does the pt smoke?: No Smoking Status: Never smoker Does the pt drink ETOH?: No Does the pt have substance abuse?: No - Immunizations Immunizations are current?: Yes - POLST Patient has POLST: No PD ED PE NORMAL - Vitals Vital signs reviewed: Yes (normal ) - General General: Alert and oriented X 3, No acute distress, Well developed/nourished - HEENT HEENT: Atraumatic, PERRL, EOMI - Neck Neck: Supple, no meningeal sign - Respiratory Respiratory: No respiratory distress - Derm Derm: Normal color, Warm and dry, No rash - Extremities Extremities: No deformity, Other (There is a small lac the palmar surface of the left hand over the distal radial side of the 4th metacarpal. There is swelling at the site of the lac under the dermabond and there is ecchymosis that extends into the hand both palmar and dorsal. There is no sign of inflamtion just sub-q bleeding and resultant swelling.There is some restriction in movement secondary to the swelling and not much pain with movement. ) - Neuro Neuro: No sensory deficit - Psych Psych: Normal mood, Normal affect Results - Vitals Vitals: Vital Signs - 24 hr 07/30/17 10:08 Temperature 36.3 C L Heart Rate 63 Respiratory 16 Rate Blood Pressure 126/80 O2 Saturation 100 Oxygen O2 Source Room air Procedures - Splint (location) left hand Splint applied by: Tech Type of splint: Fiberglass, Ulnar gutter Other: Patient tolerated well, No complications, Neurovascular intact, Good alignment PD MEDICAL DECISION MAKING - ED course Complexity details: reviewed old records, re-evaluated patient, considered differential, d/w patient ED course: 21-year-old female with a laceration to the palmar surface of the hand appears to have some bleeding into the soft tissues with regular use of the hand. She is placed into an ulnar gutter splint for comfort and for reduction of movement and is expected to have resolution of her symptoms over the next several days. Departure - Departure Disposition: 01 Home, Self Care Clinical Impression: Hand laceration Qualifiers: Encounter type: subsequent encounter Foreign body presence: without foreign body Laterality: left Qualified Code(s): S61.412D - Laceration without foreign body of left hand, subsequent encounter Condition: Stable Instructions: ED Laceration Hand Follow-Up: FRANCIS PEDRO [Primary Care Provider] - Comments: We have placed your hand into a splint to reduce the level of activity in your hand. You should have resolution of her symptoms the next 2-3 days and you can remove the splint and use her hand normally in the next 2-5 days.
== END 2017-07-30 10:40 | disposition home or self-care (01) ==
LOC: ED 09:55
DX: S61.412D Laceration without foreign body of left hand, subsequent encounter (principal); W26.0XXD Contact with knife, subsequent encounter
CPT/HCPCS: 29125; 99282; 99283

== ENCOUNTER 2017-09-24 20:09 | Emergency (ER) | payer OTHER ==
[2017-09-24 20:27] VITALS: BP 120/82
--- NOTE | 2017-09-24 20:52 | ED Physician Documentation ---
History of Present Illness - Stated complaint Stated Complaint: WOUND CHECK - Chief complaint Chief Complaint: Ext Problem - History obtained from History obtained from: Patient, Family - History of Present Illness Timing: How many days ago (5) Pain level max: 8 Pain level now: 8 Improved by: rest, percocet Worsened by: nothing - Additonal information Additional information: Patient is a 21-year-old female who is status post a left ankle lateral tendon repair. This was performed approximately 4-5 days ago. She states that she has had increasing pain in the leg and redness to the leg. She states that she fell the day of the surgery when she fell off of her knee scooter. 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, Ovarian cysts : None HEENT: Other Psych: None Musculoskeletal: Other Derm: None - Past Surgical History Past Surgical History: Yes Ortho: Arthroscopic surgery /DATA INTEGRITY CONSULTANT: Other - Allergies Allergies/Adverse Reactions: Allergies Allergy/AdvReac Type Severity Reaction Status Date / Time latex Allergy Hives Verified 07/09/17 23:51 tramadol Allergy Unknown Verified 07/09/17 23:51 - Social History Does the pt smoke?: No Smoking Status: Never smoker Does the pt drink ETOH?: No Does the pt have substance abuse?: No - Immunizations Immunizations are current?: Yes - POLST Patient has POLST: No PD ED PE NORMAL - Vitals Vital signs reviewed: Yes - General General: Alert and oriented X 3 - HEENT HEENT: Moist mucous membranes - Neck Neck: Supple, no meningeal sign - Cardiac Cardiac: RRR - Respiratory Respiratory: No respiratory distress, Clear bilaterally - Derm Derm: Warm and dry - Extremities Extremities: Other (Left lower extremity is in a plaster splint. Overlying David bandage is taped in multiple areas with tape wrapped around the leg. The splint was removed and she has no erythema on the leg. No evidence of infection. Incision is clean dry and intact.) - Neuro Neuro: Alert and oriented X 3 Results - Vitals Vitals: Vital Signs - 24 hr 09/24/17 20:23 Temperature 36.5 C Heart Rate 73 Respiratory 17 Rate Blood Pressure 120/82 H O2 Saturation 98 Oxygen O2 Source Room air PD MEDICAL DECISION MAKING - ED course Complexity details: re-evaluated patient, considered differential, d/w patient, d/w family, d/w architectural sales consultant ED course: Patient is a 21-year-old female who presents to the emergency department with left lower extremity pain after surgery 4 days ago. Symptoms resolved when the splint was removed. I discussed the case with her orthopedist, Dr. Ram who recommends placing her in a boot, keeping her nonweightbearing and follow-up in the office in the morning for repeat evaluation. No evidence of wound infection at this time. No evidence of DVT. Patient counseled regarding signs and symptoms for which I believe and urgent re-evaluation would be necessary. Patient with good understanding of and agreement to plan and is comfortable going home at this time This document was made in part using voice recognition software. While efforts are made to proofread this document, sound alike and grammatical errors may occur. - Sepsis Event Vital Signs: Vital Signs - 24 hr 09/24/17 20:23 Temperature 36.5 C Heart Rate 73 Respiratory 17 Rate Blood Pressure 120/82 H O2 Saturation 98 Oxygen O2 Source Room air Departure - Departure Disposition: 01 Home, Self Care Clinical Impression: Encounter for postoperative wound check Condition: Good Instructions: ED Wound Check Post Op No Infec Follow-Up: Alvaro Ram MD [Provider Admit Priv/Credential] - Tomorrow Comments: Dr. Ram wants to see you in the morning at approx 8am. Keep the boot on until then. Return if you worsen. Discharge Date/Time: 09/24/17 22:00
== END 2017-09-24 22:00 | disposition home or self-care (01) ==
LOC: ED 20:09
DX: Z48.89 Encounter for other specified surgical aftercare (principal)
CPT/HCPCS: 99283

== ENCOUNTER 2017-10-04 01:49 | Emergency (ER) | payer OTHER ==
[2017-10-04 02:03] VITALS: BP 129/108
--- NOTE | 2017-10-04 02:22 | ED Physician Documentation ---
PD HPI LOWER EXT INJURY - Stated complaint Stated Complaint: NOSE BLEED,L ANKLE PAIN - Chief complaint Chief Complaint: General - History obtained from History obtained from: Patient, Family - History of Present Illness PD HPI LOW EXT INJURY LOCATION: Left, Ankle Type of injury: Laceration Where injury occurred: Home Timing - onset: How many days ago (2) Timing - details: Gradual onset, Still present Recently seen: Surgery - Additional information Additional information: Patient is a 22 year old female presenting to the emergency department for ankle pain and nose bleed. patient states that she had a rhinoplasty a few days ago and has had recurrent nose bleeds. patient talked to her ent but hasn' t been in to follow up yet. Patient also had ankle surgery about 2 weeks ago. Recovery has gone well but patient went into the shower two days ago and got the cast wet. patient states that it has been itching and painful since that time. 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, Ovarian cysts : None HEENT: Other Psych: None Musculoskeletal: Other Derm: None - Past Surgical History Past Surgical History: Yes Ortho: Arthroscopic surgery /LEARNING SUPPORT ASSISTANT: Other - Allergies Allergies/Adverse Reactions: Allergies Allergy/AdvReac Type Severity Reaction Status Date / Time latex Allergy Hives Verified 07/09/17 23:51 tramadol Allergy Unknown Verified 07/09/17 23:51 - Social History Does the pt smoke?: No Smoking Status: Never smoker Does the pt drink ETOH?: No Does the pt have substance abuse?: No - Immunizations Immunizations are current?: Yes - POLST Patient has POLST: No PD ED PE NORMAL - Vitals Vital signs reviewed: Yes - General General: Alert and oriented X 3 - HEENT HEENT: Atraumatic - Cardiac Cardiac: RRR - Respiratory Respiratory: No respiratory distress - Abdomen Abdomen: Non distended PD ED PE EXPANDED - HEENT HEENT: Other (no active epistaxis. sutures in bilateral nares) - Extremities Extremities: Left ankle (well appearing surgical site. NO surrounding erythema or streaking redness) Results - Vitals Vitals: Vital Signs - 24 hr 10/04/17 01:55 Temperature 37 C Heart Rate 84 Respiratory 18 Rate Blood Pressure 129/108 H O2 Saturation 100 Oxygen O2 Source Room air PD MEDICAL DECISION MAKING - ED course Complexity details: reviewed old records, re-evaluated patient, considered differential, d/w patient, d/w family ED course: Patient was seen and examined at bedside. patient stated she had follow up tomorrow and was supposed to get a new cast. Patient's cast was removed. Patient had no active epistaxis at this time. patient's ankle was well appearing with no sign of infection. patient and family stated that they had aircast and scooter for movement and did not need any other supplies. Patient required no further work up at this time and was stable for discharge with outpatient follow up. - Sepsis Event Vital Signs: Vital Signs - 24 hr 10/04/17 01:55 Temperature 37 C Heart Rate 84 Respiratory 18 Rate Blood Pressure 129/108 H O2 Saturation 100 Oxygen O2 Source Room air Departure - Departure Disposition: 01 Home, Self Care Clinical Impression: Epistaxis, recurrent Condition: Good Instructions: ED Nosebleed Follow-Up: FRANCIS PEDRO [Primary Care Provider] - Comments: You will need to follow up with your orthopedist and your ent within the next few days. You may return to the emergency department at any time for new, worsening or uncontrollable symptoms.
== END 2017-10-04 02:29 | disposition home or self-care (01) ==
LOC: ED 01:49
DX: R04.0 Epistaxis (principal); M25.572 Pain in left ankle and joints of left foot; Z98.890 Other specified postprocedural states
CPT/HCPCS: 99282

== ENCOUNTER 2017-10-25 04:30 | Emergency (ER) | payer OTHER ==
[2017-10-25 04:38] VITALS: BP 122/79
[2017-10-25] MEDS ORDERED: ONDANSETRON ODT 4 MG TABLET TL STA (04:43)
[2017-10-25] MEDS ORDERED: ONDANSETRON ODT 4 MG Prepack 2 TL PRN (04:43)
--- NOTE | 2017-10-25 04:46 | ED Physician Documentation ---
PD HPI NVD - Stated complaint Stated Complaint: VOMITING/CHILLS/HEADACHE - Chief complaint Chief Complaint: Abd Pain - History obtained from History obtained from: Patient - History of Present Illness Timing - onset: Today Timing - details: Abrupt onset, Still present Contributing factors: Bad food Similar symptoms before: Has not had sx before Recently seen: Not recently seen - Additonal information Additional information: Patient is a 22 year old female who is presenting to the emergency department for nausea and vomiting. patient states that her refrigerator is broken but patient ate some cheese ravioli that tested funny and then developed multiple episodes of vomiting a few hours later. Patient denies any diarrhea at this time. Review of Systems Ten Systems: 10 systems reviewed and negative Constitutional: reports: Chills. denies: Fever GI: reports: Abdominal Pain, Nausea, Vomiting. 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, Ovarian cysts : None HEENT: Other Psych: None Musculoskeletal: Other Derm: None - Past Surgical History Past Surgical History: Yes Ortho: Arthroscopic surgery /MVA OPERATOR: Other - Present Medications Home Medications: Ambulatory Orders Medication Instructions Recorded Confirmed Ondansetron Odt [Zofran] 4 mg TL Q6H PRN #14 tablet 10/25/17 - Allergies Allergies/Adverse Reactions: Allergies Allergy/AdvReac Type Severity Reaction Status Date / Time latex Allergy Hives Verified 10/25/17 04:38 tramadol Allergy Unknown Verified 10/25/17 04:38 - Social History Does the pt smoke?: No Smoking Status: Never smoker Does the pt drink ETOH?: No Does the pt have substance abuse?: No - Immunizations Immunizations are current?: Yes - POLST Patient has POLST: No PD ED PE NORMAL - Vitals Vital signs reviewed: Yes - General General: Alert and oriented X 3, No acute distress - HEENT HEENT: Atraumatic - Cardiac Cardiac: RRR - Respiratory Respiratory: No respiratory distress - Abdomen Abdomen: Soft, Non distended - Derm Derm: Normal color, Warm and dry - Extremities Extremities: No deformity - Neuro Neuro: Alert and oriented X 3 Results - Vitals Vitals: Vital Signs - 24 hr 10/25/17 04:36 Temperature 36.7 C Heart Rate 72 Respiratory 16 Rate Blood Pressure 122/79 O2 Saturation 98 Oxygen O2 Source Room air PD MEDICAL DECISION MAKING - ED course Complexity details: reviewed old records, reviewed results, re-evaluated patient , considered differential, d/w patient ED course: Patient was seen and examined at bedside. patient was well appearing in no distress. patient's vital signs were within normal limits and patient had no clinical signs of dehydration. patient was treated with zofran and was stable for discharge with outpatient follow up. - Sepsis Event Vital Signs: Vital Signs - 24 hr 10/25/17 04:36 Temperature 36.7 C Heart Rate 72 Respiratory 16 Rate Blood Pressure 122/79 O2 Saturation 98 Oxygen O2 Source Room air Departure - Departure Disposition: Home, Self Care Clinical Impression: Gastroenteritis Condition: Good Instructions: ED Gastroenteritis Bacterial Follow-Up: Alfie Starks ARNP [Primary Care Provider] - Within 3 Days Prescriptions: Ondansetron Odt [Zofran] 4 mg TL Q6H PRN #14 tablet PRN Reason: Nausea / Vomiting Comments: Your symptoms today are being caused by gastroenteritis. It is important to stay well hydrated with water and gatorade(or other electrolyte solution). You should advance your diet slowly. You should follow up with your doctor if your symptoms last for more than the next 3-4 days. You can take tylenol as needed for pain. You may return to the emergency department at any time for new, worsening or uncontrollable symptoms.
== END 2017-10-25 04:57 | disposition home or self-care (01) ==
LOC: ED 04:30
DX: K52.9 Noninfective gastroenteritis and colitis, unspecified (principal)
CPT/HCPCS: 99283; Q0162

== ENCOUNTER 2017-12-06 14:34 | Emergency (ER) | payer OTHER ==
[2017-12-06 15:24] LABS: ALBUMIN 4.2 g/dL (3.2-5.5); ALBUMIN/GLOBULIN RATIO 1.4 (1.0-2.2); BILIRUBIN,TOTAL 0.5 mg/dL (0.2-1.0); CALCIUM 9.4 mg/dL (8.5-10.3); CREATININE 0.8 mg/dL (0.4-1.0); TOTAL PROTEIN 7.2 g/dL (6.7-8.2)
[2017-12-06 15:25] LABS: BASOPHILS # (AUTO) 0.1 10^3/uL (0.0-0.1); BASOPHILS % (AUTO) 0.7 %; EOSINOPHILS # (AUTO) 0.4 10^3/uL (0.0-0.7); EOSINOPHILS % (AUTO) 4.3 %; HGB - HEMOGLOBIN 14.4 g/dL (12.0-16.0); LYMPHOCYTES # (AUTO) 3.5 10^3/uL (1.5-3.5); LYMPHOCYTES % (AUTO) 37.6 %; MEAN CORPUSCULAR HEMOGLOBIN 29.3 pg (27.0-31.0); MEAN CORPUSCULAR HGB CONC 33.9 g/dL (32.0-36.0); MEAN CORPUSCULAR VOLUME 86.3 fL (81.0-99.0); MEAN PLATELET VOLUME 8.2 fL (7.9-10.8); MONOCYTES # (AUTO) 0.5 10^3/uL (0.0-1.0); MONOCYTES % (AUTO) 5.5 %; NEUTROPHILS # (AUTO) 4.8 10^3/uL (1.5-6.6); NEUTROPHILS % (AUTO) 51.9 %; PLT - PLATELET COUNT 332 10^3/uL (130-450); RED BLOOD COUNT 4.92 10^6/uL (4.20-5.40); RED CELL DISTRIBUTION WIDTH 12.7 % (12.0-15.0); WHITE BLOOD COUNT 9.2 x10^3/uL (4.8-10.8)
[2017-12-06 16:15] LABS: BILIRUBIN,URINE NEGATIVE (NEGATIVE); GLUCOSE, URINE (UA) NEGATIVE (NEGATIVE); KETONES,URINE (UA) 40 mg/dL (NEGATIVE); LEUKOCYTE ESTERASE, URINE NEGATIVE (NEGATIVE); NITRITE,URINE NEGATIVE (NEGATIVE); OCCULT BLOOD,URINE NEGATIVE (NEGATIVE); PH,URINE 5.5 PH (5.0-7.5); PROTEIN,URINE NEGATIVE (NEGATIVE); UROBILINOGEN,URINE 0.2 (NORMAL) E.U./dL (NORMAL)
[2017-12-06 16:18] LABS: HCG UR QUAL NEGATIVE
[2017-12-06 16:18] LABS: CLARITY,URINE CLEAR (CLEAR)
--- NOTE | 2017-12-06 17:56 | ED Physician Documentation ---
PD HPI ABD PAIN - Stated complaint Stated Complaint: ABD PX - Chief complaint Chief Complaint: Abd Pain - History obtained from History obtained from: Patient - History of Present Illness Timing - onset: Today Timing - duration: Hours Timing - details: Abrupt onset, Still present Quality: Aching, Sharp, Pain Location: LLQ Radiation: Lower back Improved by: Position (knees up). No: Eating Worsened by: Moving, Position (walking and standing upright). No: Eating Associated symptoms: Nausea. No: Fever, Vomiting, Diarrhea, Dysuria, Vaginal bleeding, Vaginal dc Similar symptoms before: Diagnosis (ovarian cysts rupturing in the past. No kidney stones.) Recently seen: Not recently seen Review of Systems Constitutional: denies: Fever Nose: denies: Rhinorrhea / runny nose, Congestion Throat: denies: Sore throat Cardiac: denies: Chest pain / pressure Respiratory: denies: Cough GI: reports: Abdominal Pain, Nausea. denies: Vomiting, Diarrhea : reports: LMP (3 weeks ago). 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, Ovarian cysts : None HEENT: Other Psych: None Musculoskeletal: Other Derm: None - Past Surgical History Past Surgical History: Yes Ortho: Arthroscopic surgery /KINDERGARTEN AIDE: Other - Present Medications Home Medications: Ambulatory Orders Medication Instructions Recorded Confirmed Ondansetron Odt [Zofran] 4 mg TL Q6H PRN #14 tablet 10/25/17 HYDROcodone/ACET 7.5/325 [[place] 1 each PO Q6H PRN #15 tablet 12/06/17 7.5/325] Naproxen 375 mg PO BID #20 tablet 12/06/17 Ondansetron Odt [Zofran] 4 mg TL Q6H PRN #15 tablet 12/06/17 - Allergies Allergies/Adverse Reactions: Allergies Allergy/AdvReac Type Severity Reaction Status Date / Time latex Allergy Hives Verified 10/25/17 04:38 tramadol Allergy Unknown Verified 12/06/17 14:59 - Social History Does the pt smoke?: No Smoking Status: Never smoker Does the pt drink ETOH?: No Does the pt have substance abuse?: No - Immunizations Immunizations are current?: Yes - POLST Patient has POLST: No PD ED PE NORMAL - Vitals Vital signs reviewed: Yes - General General: Alert and oriented X 3, Well developed/nourished, Other (appears in pain) - HEENT HEENT: Pharynx benign - Neck Neck: Supple, no meningeal sign, No adenopathy - Cardiac Cardiac: RRR, No murmur - Respiratory Respiratory: Clear bilaterally - Abdomen Abdomen: Normal bowel sounds, Soft, Non distended, No organomegaly, Other (very tender LLQ and suprapubic area with guarding locally. No percussion tenderness. Some rebound to LLQ. ) - Female Female : Deferred - Rectal Rectal: Deferred - Back Back: No CVA TTP - Derm Derm: Normal color, Warm and dry - Extremities Extremities: No deformity, No tenderness to palpate, No edema, No calf tenderness / cord - Neuro Neuro: Alert and oriented X 3, No motor deficit, Normal speech Results - Vitals Vitals: Vital Signs - 24 hr 12/06/17 12/06/17 12/06/17 14:57 18:20 19:43 Temperature 36.8 C 36.3 C L Heart Rate 81 86 63 Respiratory 20 18 16 Rate Blood Pressure 125/89 H 128/88 H 126/85 H O2 Saturation 98 97 97 Oxygen O2 Source Room air - Labs Labs: Laboratory Tests 12/06/17 12/06/17 12/06/17 15:05 15:05 16:00 WBC 9.2 RBC 4.92 Hgb 14.4 Hct 42.5 MCV 86.3 MCH 29.3 MCHC 33.9 RDW 12.7 Plt Count 332 MPV 8.2 Neut # (Auto) 4.8 Lymph # (Auto) 3.5 [place] # (Auto) 0.5 Eos # (Auto) 0.4 Baso # (Auto) 0.1 Absolute Nucleated RBC 0.01 Nucleated RBC % 0.1 Sodium 137 Potassium 3.8 Chloride 103 Carbon Dioxide 23 Anion Gap 11.0 BUN 18 Creatinine 0.8 Estimated GFR (MDRD) 88 L Glucose 98 Calcium 9.4 Total Bilirubin 0.5 AST 47 H ALT 47 Alkaline Phosphatase 70 Total Protein 7.2 Albumin 4.2 Globulin 3.0 Albumin/Globulin Ratio 1.4 Lipase 29 Urine Color YELLOW Urine Clarity CLEAR Urine pH 5.5 Ur Specific [place] 1.025 Urine Protein NEGATIVE Urine Glucose (UA) NEGATIVE Urine Ketones 40 H Urine Occult Blood NEGATIVE Urine Nitrite NEGATIVE Urine Bilirubin NEGATIVE Urine Urobilinogen 0.2 (NORMAL) Ur Leukocyte Esterase NEGATIVE Ur Microscopic Review NOT INDICATED Urine Culture Comments NOT INDICATED Urine HCG, Qual 12/06/17 16:05 WBC RBC Hgb Hct MCV MCH MCHC RDW Plt Count MPV Neut # (Auto) Lymph # (Auto) [place] # (Auto) Eos # (Auto) Baso # (Auto) Absolute Nucleated RBC Nucleated RBC % Sodium Potassium Chloride Carbon Dioxide Anion Gap BUN Creatinine Estimated GFR (MDRD) Glucose Calcium Total Bilirubin AST ALT Alkaline Phosphatase Total Protein Albumin Globulin Albumin/Globulin Ratio Lipase Urine Color Urine Clarity Urine pH Ur Specific [place] 1.025 Urine Protein Urine Glucose (UA) Urine Ketones Urine Occult Blood Urine Nitrite Urine Bilirubin Urine Urobilinogen Ur Leukocyte Esterase Ur Microscopic Review Urine Culture Comments Urine HCG, Qual NEGATIVE - Rads (name of study) pelvic U/S Radiology: Prelim report reviewed (small cyst 2 cm left ovary with mild/mod free fluid. Normal blood flow to ovary. ) PD MEDICAL DECISION MAKING - ED course Complexity details: reviewed results (small cyst on left with mod free fluid c/ w likely rupturing cyst. OVary with good blood flow. ), considered differential (history of cysts and endometriosis. Abrupt severe pain - will get U/S to ensure no torsion nor significant internal bleeding. ), d/w patient - Sepsis Event Vital Signs: Vital Signs - 24 hr 12/06/17 12/06/17 12/06/17 14:57 18:20 19:43 Temperature 36.8 C 36.3 C L Heart Rate 81 86 63 Respiratory 20 18 16 Rate Blood Pressure 125/89 H 128/88 H 126/85 H O2 Saturation 98 97 97 Oxygen O2 Source Room air Departure - Departure Disposition: Home, Self Care Clinical Impression: Ruptured cyst of ovary, Pelvic pain Condition: Stable Record reviewed to determine appropriate education?: Yes Instructions: ED Pelvic Pain [facility] Follow-Up: Alfie Starks ARNP [Primary Care Provider] - Prescriptions: HYDROcodone/ACET 7.5/325 [[place] 7.5/325] 1 each PO Q6H PRN #15 tablet PRN Reason: Pain Naproxen 375 mg PO BID #20 tablet Ondansetron Odt [Zofran] 4 mg TL Q6H PRN #15 tablet PRN Reason: Nausea / Vomiting Comments: Your ultrasound shows a small cyst on the left side about 2 cm. There is some free fluid in the area suggesting partial rupturing of the cyst. There is good blood flow to the ovary so no signs of torsion. Your urine test looked normal. Presume it was a ruptured cyst that caused her pain. This should improve over the next few days. Use of naproxen or ibuprofen 2-3 times a day. Add ondansetron if needed for nausea. Add Tylenol or hydrocodone if needed for pain. Recheck if not better over the next few days and return sooner if other symptoms develop. Discharge Date/Time: 12/06/17 19:44
[2017-12-06] MEDS ORDERED: SODIUM CHLORIDE 0.9% 1,000 ML IV ONE (18:02)
[2017-12-06] MEDS ORDERED: HYDROmorphone 1 MG/ML CARPUJECT IVP STA (18:02)
[2017-12-06] MEDS ORDERED: KETOROLAC 60 MG/2 ML VIAL IVP STA (18:02)
[2017-12-06] MEDS ORDERED: ONDANSETRON 4 MG/2 ML VIAL IVP STA (18:02)
--- NOTE | 2017-12-06 19:19 | Ultrasound Report ---
Reason: left lower pelvic pain abrupt today Procedure Date: 12/06/2017 Accession Number: [id number] / [id number] Procedure: US - Pelvic w/Transvag+Doppler Ltd CPT Code: FULL RESULT: EXAM: PELVIC ULTRASOUND EXAM DATE: 12/06/2017 07:07 PM. CLINICAL HISTORY: 22-year-old G0 female with LMP 11/10/2017. Left lower pelvic pain abrupt today. COMPARISON: 07/10/2017. TECHNIQUE: Realtime transabdominal pelvic scan performed to identify the uterus and adnexa and as an overview of other pelvic structures, followed by transvaginal scan to provide greater detail of the uterus and adnexa, with static image documentation. FINDINGS: Uterus: 8.4 x 3.1 x 5.2 cm, volume 71 cc. Anteverted position. Normal overall size and echotexture. Masses: None. Endometrium: 9 mm. Normal. Cervix: Unremarkable. Right Ovary: 3.9 x 2.5 x 2.9 cm, volume 15 cc. Normal echotexture and blood flow. Left Ovary: 4.7 x 2.7 x 4.0 cm, volume 27 cc. Normal echotexture and blood flow. 2.1 x 1.2 x 1.6 cm dominant grossly simple left ovarian cyst/follicle. Free Fluid: Small simple. Other: None. IMPRESSION: 1. Small simple free fluid in the pelvis. 2. 2.1 x 1.2 x 1.6 cm grossly simple dominant left ovarian cyst/follicle. 3. Otherwise normal pelvic ultrasound. [facility]
[2017-12-06 19:44] VITALS: BP 126/85
== END 2017-12-06 19:44 | disposition home or self-care (01) ==
LOC: ED 14:34
DX: N83.202 Unspecified ovarian cyst, left side (principal); R10.2 Pelvic and perineal pain
CPT/HCPCS: 36415; 76830; 76856; 80053; 81003; 81025; 83690; 85025; 93976; 96361; 96374; 96375; 99283; J1170; 81001; 87086

== ENCOUNTER 2017-12-18 08:45 | Emergency (ER) | payer OTHER ==
--- NOTE | 2017-12-18 09:41 | ED Physician Documentation ---
PD HPI MHE - History obtained from History obtained from: Patient - History of Present Illness Primary symptom: Other (lower abd/LLQ pain for couple days. Cramping pain.) Timing - onset: How many days ago Similar symptoms before: Diagnosis (ovarian cysts. consideration of endometriosis.) Recently seen: Not recently seen Review of Systems Constitutional: reports: Myalgias. denies: Fever, Chills Nose: denies: Rhinorrhea / runny nose, Congestion Throat: denies: Sore throat Cardiac: denies: Chest pain / pressure Respiratory: denies: Cough GI: reports: Abdominal Pain, Nausea. 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, Ovarian cysts : None HEENT: Other Psych: None Musculoskeletal: Other Derm: None - Past Surgical History Past Surgical History: Yes Ortho: Arthroscopic surgery /MH TEACHER: Other - Present Medications Home Medications: Ambulatory Orders Medication Instructions Recorded Confirmed Ondansetron Odt [Zofran] 4 mg TL Q6H PRN #14 tablet 10/25/17 HYDROcodone/ACET 7.5/325 [[place] 1 each PO Q6H PRN #15 tablet 12/06/17 7.5/325] Ondansetron Odt [Zofran] 4 mg TL Q6H PRN #15 tablet 12/06/17 RX: Naproxen 375 mg PO BID #20 tablet 12/06/17 HYDROcod/ACETAM 5/325 [[place] 5/325] 1 tab PO Q6H PRN #20 tablet 12/18/17 Ondansetron HCl [Zofran] 4 mg PO Q6H PRN #20 tablet 12/18/17 RX: Naproxen [Naprosyn] 500 mg PO BID PRN #20 tablet 12/18/17 - Allergies Allergies/Adverse Reactions: Allergies Allergy/AdvReac Type Severity Reaction Status Date / Time latex Allergy Hives Verified 12/18/17 08:58 tramadol Allergy Unknown Verified 12/18/17 08:58 - Social History Does the pt smoke?: Yes Smoking Status: Current some day smoker Does the pt drink ETOH?: No Does the pt have substance abuse?: No - Immunizations Immunizations are current?: Yes - POLST Patient has POLST: No PD ED PE NORMAL - Vitals Vital signs reviewed: Yes - General General: Alert and oriented X 3, Well developed/nourished, Other (appears in pain) - Neck Neck: Supple, no meningeal sign, No adenopathy - Cardiac Cardiac: RRR, No murmur - Respiratory Respiratory: Clear bilaterally - Abdomen Abdomen: Normal bowel sounds, Soft, Non distended, No organomegaly, Other (tender lower abd and LLQ area. No percussion nor rebound tenderness. ) - Female Female : Deferred - Rectal Rectal: Deferred - Back Back: No CVA TTP - Derm Derm: Normal color, Warm and dry, No rash - Neuro Neuro: Alert and oriented X 3, No motor deficit, Normal speech Results - Vitals Vitals: Vital Signs - 24 hr 12/18/17 12/18/17 12/18/17 08:52 10:35 11:05 Temperature 36.6 C Heart Rate 74 58 L 58 L Respiratory 18 17 16 Rate Blood Pressure 109/85 H 127/87 H 121/74 O2 Saturation 99 97 98 12/18/17 12/18/17 12:29 13:13 Temperature Heart Rate 63 52 L Respiratory 17 16 Rate Blood Pressure 130/90 H 116/80 O2 Saturation 98 97 Oxygen O2 Source Room air - Labs Labs: Laboratory Tests 12/18/17 12/18/17 12/18/17 10:10 10:10 10:30 WBC 10.8 RBC 4.67 Hgb 14.0 Hct 40.1 MCV 86.0 MCH 29.9 MCHC 34.8 RDW 12.6 Plt Count 322 MPV 7.9 Neut # (Auto) 6.6 Lymph # (Auto) 2.8 [place] # (Auto) 0.6 Eos # (Auto) 0.7 Baso # (Auto) 0.1 Absolute Nucleated RBC 0.01 Nucleated RBC % 0.1 Sodium Potassium Chloride Carbon Dioxide Anion Gap BUN Creatinine Estimated GFR (MDRD) Glucose Calcium Total Bilirubin AST ALT Alkaline Phosphatase Total Protein Albumin Globulin Albumin/Globulin Ratio Lipase Urine Color YELLOW Urine Clarity CLEAR Urine pH 5.5 Ur Specific [place] 1.025 1.025 Urine Protein NEGATIVE Urine Glucose (UA) NEGATIVE Urine Ketones NEGATIVE Urine Occult Blood TRACE-LYSE Urine Nitrite NEGATIVE Urine Bilirubin NEGATIVE Urine Urobilinogen 0.2 (NORMAL) Ur Leukocyte Esterase NEGATIVE Ur Microscopic Review NOT INDICATED Urine Culture Comments NOT INDICATED Urine HCG, Qual NEGATIVE 12/18/17 10:30 WBC RBC Hgb Hct MCV MCH MCHC RDW Plt Count MPV Neut # (Auto) Lymph # (Auto) [place] # (Auto) Eos # (Auto) Baso # (Auto) Absolute Nucleated RBC Nucleated RBC % Sodium 137 Potassium 3.7 Chloride 105 Carbon Dioxide 24 Anion Gap 8.0 BUN 16 Creatinine 0.7 Estimated GFR (MDRD) 103 Glucose 96 Calcium 9.2 Total Bilirubin 0.4 AST 23 ALT 22 Alkaline Phosphatase 66 Total Protein 7.0 Albumin 4.1 Globulin 2.9 Albumin/Globulin Ratio 1.4 Lipase 31 Urine Color Urine Clarity Urine pH Ur Specific [place] Urine Protein Urine Glucose (UA) Urine Ketones Urine Occult Blood Urine Nitrite Urine Bilirubin Urine Urobilinogen Ur Leukocyte Esterase Ur Microscopic Review Urine Culture Comments Urine HCG, Qual PD MEDICAL DECISION MAKING - ED course Complexity details: reviewed results, considered differential, d/w patient - Sepsis Event Vital Signs: Vital Signs - 24 hr 12/18/17 12/18/17 12/18/17 08:52 10:35 11:05 Temperature 36.6 C Heart Rate 74 58 L 58 L Respiratory 18 17 16 Rate Blood Pressure 109/85 H 127/87 H 121/74 O2 Saturation 99 97 98 12/18/17 12/18/17 12:29 13:13 Temperature Heart Rate 63 52 L Respiratory 17 16 Rate Blood Pressure 130/90 H 116/80 O2 Saturation 98 97 Oxygen O2 Source Room air Departure - Departure Disposition: 01 Home, Self Care Clinical Impression: Pelvic pain Condition: Stable Record reviewed to determine appropriate education?: Yes Instructions: ED Abdominal Pain Unkn Cause Follow-Up: Alfie Starks ARNP [Primary Care Provider] - Prescriptions: HYDROcod/ACETAM 5/325 [[place] 5/325] 1 tab PO Q6H PRN #20 tablet PRN Reason: Pain RX: Naproxen [Naprosyn] 500 mg PO BID PRN #20 tablet PRN Reason: Pain Ondansetron HCl [Zofran] 4 mg PO Q6H PRN #20 tablet PRN Reason: Nausea / Vomiting Comments: Drink lots of fluids. Naproxen 500 mg twice daily for 7-10 days. Ondansetron if needed for nausea. Add hydrocodone if needed for pain. Follow-up with your primary care in about 2-3 days, call for an appointment. Discharge Date/Time: 12/18/17 13:34
[2017-12-18] MEDS ORDERED: SODIUM CHLORIDE 0.9% 1,000 ML IV ONE (10:00)
[2017-12-18] MEDS ORDERED: ONDANSETRON 4 MG/2 ML VIAL IVP STA (10:00)
[2017-12-18] MEDS ORDERED: MORPHINE 10 MG/ML VIAL IVP STA (10:01)
[2017-12-18 10:24] LABS: BILIRUBIN,URINE NEGATIVE (NEGATIVE); GLUCOSE, URINE (UA) NEGATIVE (NEGATIVE); KETONES,URINE (UA) NEGATIVE (NEGATIVE); LEUKOCYTE ESTERASE, URINE NEGATIVE (NEGATIVE); NITRITE,URINE NEGATIVE (NEGATIVE); OCCULT BLOOD,URINE TRACE-LYSE (NEGATIVE); PH,URINE 5.5 PH (5.0-7.5); PROTEIN,URINE NEGATIVE (NEGATIVE); UROBILINOGEN,URINE 0.2 (NORMAL) E.U./dL (NORMAL)
[2017-12-18 10:33] LABS: CLARITY,URINE CLEAR (CLEAR)
[2017-12-18 10:47] LABS: BASOPHILS # (AUTO) 0.1 10^3/uL (0.0-0.1); BASOPHILS % (AUTO) 0.6 %; EOSINOPHILS # (AUTO) 0.7 10^3/uL (0.0-0.7); EOSINOPHILS % (AUTO) 6.2 %; LYMPHOCYTES # (AUTO) 2.8 10^3/uL (1.5-3.5); LYMPHOCYTES % (AUTO) 25.6 %; MEAN CORPUSCULAR HEMOGLOBIN 29.9 pg (27.0-31.0); MEAN CORPUSCULAR HGB CONC 34.8 g/dL (32.0-36.0); MEAN PLATELET VOLUME 7.9 fL (7.9-10.8); MONOCYTES # (AUTO) 0.6 10^3/uL (0.0-1.0); MONOCYTES % (AUTO) 5.8 %; NEUTROPHILS # (AUTO) 6.6 10^3/uL (1.5-6.6); NEUTROPHILS % (AUTO) 61.8 %; PLT - PLATELET COUNT 322 10^3/uL (130-450); RED BLOOD COUNT 4.67 10^6/uL (4.20-5.40); RED CELL DISTRIBUTION WIDTH 12.6 % (12.0-15.0); WHITE BLOOD COUNT 10.8 x10^3/uL (4.8-10.8)
[2017-12-18 11:01] LABS: ALBUMIN 4.1 g/dL (3.2-5.5); ALBUMIN/GLOBULIN RATIO 1.4 (1.0-2.2); BILIRUBIN,TOTAL 0.4 mg/dL (0.2-1.0); CALCIUM 9.2 mg/dL (8.5-10.3); CREATININE 0.7 mg/dL (0.4-1.0)
[2017-12-18 11:34] LABS: HCG UR QUAL NEGATIVE
[2017-12-18] MEDS ORDERED: IOPAMIDOL-300 100 ML VIAL ONE (11:59)
[2017-12-18] MEDS: MORPHINE 10 MG/ML VIAL IVP STA (12:23)
--- NOTE | 2017-12-18 12:59 | CT Report ---
Reason: RLQ pain and fever for several days Procedure Date: 12/18/2017 Accession Number: [id number] / [id number] Procedure: CT - Abdomen/Pelvis W/ CPT Code: FULL RESULT: EXAM: CT ABDOMEN AND PELVIS WITH IV CONTRAST EXAM DATE: 12/18/2017. CLINICAL HISTORY: Right lower abdominal pain and fever for several days. COMPARISONS: Abdomen CT on 03/16/2017. Abdomen and pelvis CT on 07/07/2016. TECHNIQUE: Routine helical CT imaging was performed through the abdomen and pelvis. IV contrast: 100 cc of Isovue-300. Enteric contrast: None. Reconstructions: Coronal and sagittal. In accordance with CT protocol optimization, one or more of the following dose reduction techniques were utilized for this exam: automated exposure control, adjustment of mA and/or KV based on patient size, or use of iterative reconstructive technique. FINDINGS: Lung Bases: The lungs are clear. No pleural or pericardial effusion. Fat-containing hiatal hernia, 4.9 cm diameter, larger than on prior examinations. No gastric hiatal hernia. Liver: Normal. No masses. Gallbladder/Bile Ducts: Normal. No bile duct dilatation. Spleen: Normal. Pancreas: Normal. Adrenal Glands: Normal. Kidneys: Normal. No masses or hydronephrosis. Peritoneal Cavity/Bowel: No bowel dilatation. The appendix is well visualized and normal. No adenopathy. No fluid collections or free air. Pelvic Organs: The urinary bladder appears normal. The uterus is normal in size. No mass, adenopathy, or fluid collections. Vasculature: Normal. Bones: Normal. IMPRESSION: Normal abdomen and pelvis CT. [facility]
[2017-12-18 13:14] VITALS: BP 116/80
[2017-12-18] MEDS ORDERED: KETOROLAC 60 MG/2 ML VIAL IVP STA (13:15)
[2017-12-18] MEDS ORDERED: IOPAMIDOL-300 100 ML VIAL IVP ONE (15:00)
== END 2017-12-18 13:34 | disposition home or self-care (01) ==
LOC: ED 08:45
DX: R10.2 Pelvic and perineal pain (principal); F17.200 Nicotine dependence, unspecified, uncomplicated
CPT/HCPCS: 36415; 74177; 80053; 81003; 81025; 83690; 85025; 96361; 96374; 96375; 99283; 99284; Q9967; 81001; 87086

== ENCOUNTER 2018-01-09 23:50 | Emergency (ER) | payer OTHER ==
[2018-01-10] MEDS ORDERED: ONDANSETRON ODT 4 MG TABLET TL STA (00:25)
[2018-01-10] MEDS ORDERED: DICYCLOMINE 10 MG CAPSULE PO STA (00:26)
[2018-01-10] MEDS ORDERED: GI COCKTAIL 120 ML BOTTLE PO STA (00:26)
--- NOTE | 2018-01-10 00:27 | ED Physician Documentation ---
PD HPI NVD - Stated complaint Stated Complaint: ABD PX,VOMITING - Chief complaint Chief Complaint: Abd Pain - History obtained from History obtained from: Patient, Family - History of Present Illness Timing - onset: Chronic Timing - details: Gradual onset, Still present Associated symptoms: Abdominal pain Contributing factors: No: Sick contact, Bad food, Travel, Recent antibiotics Similar symptoms before: Work up / diagnostics Recently seen: Emergency Dept - Additonal information Additional information: Patient is a 22 year old female who is presenting to the emergency department for abdominal pain. patient states that the symptoms have been going on for months. patient had a complete work up done here and diagnostics including CT were all negative. patient states that she has intermittent nausea and vomiting and can't keep anything down. patient also reports episodes of diarrhea and episodes of constipation. 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, Ovarian cysts : None HEENT: Other Psych: None Musculoskeletal: Other Derm: None - Past Surgical History Past Surgical History: Yes Ortho: Arthroscopic surgery /DIRECTOR OF ONCOLOGY: Other - Present Medications Home Medications: Ambulatory Orders Medication Instructions Recorded Confirmed Ondansetron Odt [Zofran] 4 mg TL Q6H PRN #14 tablet 10/25/17 HYDROcodone/ACET 7.5/325 [[place] 1 each PO Q6H PRN #15 tablet 12/06/17 7.5/325] Naproxen 375 mg PO BID #20 tablet 12/06/17 Ondansetron Odt [Zofran] 4 mg TL Q6H PRN #15 tablet 12/06/17 HYDROcod/ACETAM 5/325 [[place] 5/325] 1 tab PO Q6H PRN #20 tablet 12/18/17 Naproxen [Naprosyn] 500 mg PO BID PRN #20 tablet 12/18/17 Ondansetron HCl [Zofran] 4 mg PO Q6H PRN #20 tablet 12/18/17 Dicyclomine [Bentyl] 10 mg PO QID #14 capsule 01/10/18 Ondansetron Odt [Zofran] 4 mg TL Q6H PRN #14 tablet 01/10/18 - Allergies Allergies/Adverse Reactions: Allergies Allergy/AdvReac Type Severity Reaction Status Date / Time latex Allergy Hives Verified 01/09/18 23:57 tramadol Allergy Unknown Verified 01/09/18 23:57 - Social History Does the pt smoke?: No Smoking Status: Never smoker Does the pt drink ETOH?: No Does the pt have substance abuse?: No - Immunizations Immunizations are current?: Yes - POLST Patient has POLST: No PD ED PE NORMAL - Vitals Vital signs reviewed: Yes - General General: Alert and oriented X 3, No acute distress - HEENT HEENT: Atraumatic, PERRL - Cardiac Cardiac: RRR - Respiratory Respiratory: No respiratory distress - Abdomen Abdomen: Soft, Non distended - Derm Derm: Normal color, Warm and dry - Extremities Extremities: No deformity - Neuro Neuro: Alert and oriented X 3 Eye Opening: Spontaneous Motor: Obeys Commands Verbal: Oriented GCS Score: 15 PD ED PE EXPANDED - Abdomen Abdomen: Tender to palpation. No: Rebound, Guarding Results - Vitals Vitals: Vital Signs - 24 hr 01/09/18 23:54 Temperature 36.1 C L Heart Rate 103 H Respiratory 17 Rate Blood Pressure 134/95 H O2 Saturation 100 Oxygen O2 Source Room air PD MEDICAL DECISION MAKING - ED course Complexity details: reviewed old records, reviewed results, re-evaluated patient, considered differential, d/w patient, d/w family ED course: Patient was seen and examined at bedside. labs were drawn and urine was collected. patient was treated with bentyl, maalox, viscous lidocaine and donnatol. patient's diagnostics were all within normal limits. It was very unlikely that patient was vomiting everyday or having multiple episodes of diarrhea. patient was made aware of the findings and the necessity for outp atient follow up and colonoscopy. Patient understood and was stable for discharge with outpatient follow up. - Sepsis Event Vital Signs: Vital Signs - 24 hr 01/09/18 23:54 Temperature 36.1 C L Heart Rate 103 H Respiratory 17 Rate Blood Pressure 134/95 H O2 Saturation 100 Oxygen O2 Source Room air Departure - Departure Disposition: 01 Home, Self Care Clinical Impression: Abdominal pain Condition: Good Instructions: ED Abdominal Pain Unkn Cause Follow-Up: Alfie Starks ARNP [Primary Care Provider] - As Needed Jonathan Coombs MD [Provider Admit Priv/Credential] - Prescriptions: Dicyclomine [Bentyl] 10 mg PO QID #14 capsule Ondansetron Odt [Zofran] 4 mg TL Q6H PRN #14 tablet PRN Reason: Nausea / Vomiting Comments: Your diagnostics today were within normal limits. there were no significant abnormalities or signs of dehydration. The next step would be to follow up with your doctor, or Dr. Coombs for possible colonoscopy and egd. You should follow up with your doctor if your symptoms persist.
[2018-01-10 00:44] LABS: BASOPHILS # (AUTO) 0.1 10^3/uL (0.0-0.1); BASOPHILS % (AUTO) 1.1 %; EOSINOPHILS # (AUTO) 0.3 10^3/uL (0.0-0.7); EOSINOPHILS % (AUTO) 4.2 %; HGB - HEMOGLOBIN 13.9 g/dL (12.0-16.0); LYMPHOCYTES % (AUTO) 36.9 %; MEAN CORPUSCULAR HEMOGLOBIN 29.5 pg (27.0-31.0); MEAN CORPUSCULAR HGB CONC 34.6 g/dL (32.0-36.0); MEAN CORPUSCULAR VOLUME 85.2 fL (81.0-99.0); MEAN PLATELET VOLUME 8.1 fL (7.9-10.8); MONOCYTES # (AUTO) 0.5 10^3/uL (0.0-1.0); MONOCYTES % (AUTO) 5.5 %; NEUTROPHILS # (AUTO) 4.3 10^3/uL (1.5-6.6); NEUTROPHILS % (AUTO) 52.3 %; PLT - PLATELET COUNT 303 10^3/uL (130-450); RED BLOOD COUNT 4.71 10^6/uL (4.20-5.40); RED CELL DISTRIBUTION WIDTH 12.6 % (12.0-15.0); WHITE BLOOD COUNT 8.2 x10^3/uL (4.8-10.8)
[2018-01-10 00:53] LABS: ALBUMIN/GLOBULIN RATIO 1.5 (1.0-2.2); BILIRUBIN,TOTAL 0.2 mg/dL (0.2-1.0); CALCIUM 9.2 mg/dL (8.5-10.3); CREATININE 0.9 mg/dL (0.4-1.0); TOTAL PROTEIN 6.6 g/dL (6.7-8.2)
[2018-01-10] MEDS ORDERED: PHENobarb/HYOSCY/ATROPINE/SCOP 5 ML UDC PO STA (01:05)
[2018-01-10] MEDS ORDERED: MAG HYDROX/AL HYDROX/SIMETH 30 ML UDC PO STA (01:05)
[2018-01-10] MEDS ORDERED: LIDOCAINE VISCOUS 2% 15 ML UDC MM STA (01:05)
[2018-01-10 01:54] LABS: BILIRUBIN,URINE NEGATIVE (NEGATIVE); GLUCOSE, URINE (UA) NEGATIVE (NEGATIVE); KETONES,URINE (UA) NEGATIVE (NEGATIVE); LEUKOCYTE ESTERASE, URINE NEGATIVE (NEGATIVE); NITRITE,URINE NEGATIVE (NEGATIVE); OCCULT BLOOD,URINE SMALL (NEGATIVE); PROTEIN,URINE NEGATIVE (NEGATIVE); UROBILINOGEN,URINE 0.2 (NORMAL) E.U./dL (NORMAL)
[2018-01-10 01:55] LABS: CLARITY,URINE CLEAR (CLEAR); HCG UR QUAL NEGATIVE
[2018-01-10 01:59] LABS: BACTERIA,URINE Few /HPF (None Seen); RBC,URINE 0-5 /HPF (0-5); SQUAMOUS EPITHELIAL CELL,UR FEW Squamous (<= Few)
[2018-01-10 02:26] VITALS: BP 110/77
== END 2018-01-10 02:30 | disposition home or self-care (01) ==
LOC: ED 23:50
DX: R10.9 Unspecified abdominal pain (principal)
CPT/HCPCS: 36415; 80053; 81001; 81025; 83690; 85025; 99283; A9270; Q0162; 81003; 87086

== ENCOUNTER 2018-01-25 19:21 | Emergency (ER) | payer OTHER ==
[2018-01-25 19:30] VITALS: BP 148/100
--- NOTE | 2018-01-25 20:28 | ED Physician Documentation ---
PD HPI URI - Stated complaint Stated Complaint: CP/COUGHING UP BLOOD - Chief complaint Chief Complaint: Resp - History obtained from History obtained from: Patient - Additional information Additional information: 22-year-old female presents the emergency department with ongoing nasal congestion, cough and general fatigue over the past several days. The patient reports blood-tinged sputum today. No respiratory distress or wheezing. Symptoms are described as moderate. No other associated symptoms. No triggering factors. No relieving factors. The patient denies any tobacco usage Review of Systems Constitutional: reports: Chills, Fatigue. 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 cysts : None HEENT: Other Psych: None Musculoskeletal: Other Derm: None - Past Surgical History Past Surgical History: Yes Ortho: Arthroscopic surgery /DATA TECHNICIAN: Other - Present Medications Home Medications: Ambulatory Orders Medication Instructions Recorded Confirmed Ondansetron Odt [Zofran] 4 mg TL Q6H PRN #14 tablet 10/25/17 HYDROcodone/ACET 7.5/325 [[place] 1 each PO Q6H PRN #15 tablet 12/06/17 7.5/325] Naproxen 375 mg PO BID #20 tablet 12/06/17 Ondansetron Odt [Zofran] 4 mg TL Q6H PRN #15 tablet 12/06/17 HYDROcod/ACETAM 5/325 [[place] 5/325] 1 tab PO Q6H PRN #20 tablet 12/18/17 Naproxen [Naprosyn] 500 mg PO BID PRN #20 tablet 12/18/17 Ondansetron HCl [Zofran] 4 mg PO Q6H PRN #20 tablet 12/18/17 Dicyclomine [Bentyl] 10 mg PO QID #14 capsule 01/10/18 Ondansetron Odt [Zofran] 4 mg TL Q6H PRN #14 tablet 01/10/18 Albuterol Sulf [Ventolin Hfa 1 - 2 puffs INH Q4HR PRN #1 inhaler 01/25/18 Inhaler] - Allergies Allergies/Adverse Reactions: Allergies Allergy/AdvReac Type Severity Reaction Status Date / Time latex Allergy Hives Verified 01/25/18 19:30 tramadol Allergy Unknown Verified 01/25/18 19:30 - Social History Does the pt smoke?: No Smoking Status: Never smoker Does the pt drink ETOH?: No Does the pt have substance abuse?: No - Immunizations Immunizations are current?: Yes - POLST Patient has POLST: No PD ED PE NORMAL - General General: Alert and oriented X 3, No acute distress - HEENT HEENT: Atraumatic, PERRL, EOMI, Ears normal - Cardiac Cardiac: RRR, Strong equal pulses - Respiratory Respiratory: No respiratory distress, Clear bilaterally - Derm Derm: Normal color - Extremities Extremities: No deformity - Neuro Neuro: Alert and oriented X 3, Normal speech - Psych Psych: Normal mood Results - Vitals Vitals: Vital Signs - 24 hr 01/25/18 19:23 Temperature 36.3 C L Heart Rate 78 Respiratory 20 Rate Blood Pressure 148/100 H O2 Saturation 100 Oxygen O2 Source Room air - Rads (name of study) CXR Radiology: Final report received (IMPRESSION: Normal 2-view chest radiography. ) PD MEDICAL DECISION MAKING - ED course ED course: The patient appears to have a viral bronchitis, presently the patient appears appropriate for discharge and ongoing outpatient management. I discussed with her the findings and plan when she understands and agrees. I discussed warning signs and recommended returning to the emergency department immediately for worsening or concerns. Departure - Departure Disposition: 01 Home, Self Care Clinical Impression: Bronchitis Condition: Good Instructions: Bronchitis Acute Dc Follow-Up: Alfie Starks ARNP [Primary Care Provider] - Within 1 week Prescriptions: Albuterol Sulf [Ventolin Hfa Inhaler] 1 - 2 puffs INH Q4HR PRN #1 inhaler PRN Reason: Shortness Of Air/Wheezing Comments: Please return to the emergency department for worsening symptoms or any concerns
--- NOTE | 2018-01-25 20:43 | XRAY Report ---
Reason: soa Procedure Date: 01/25/2018 Accession Number: [id number] / [id number] Procedure: XR - Chest 2 View X-Ray CPT Code: 80608 FULL RESULT: EXAM: CHEST RADIOGRAPHY EXAM DATE: 01/25/2018 08:02 PM. CLINICAL HISTORY: Shortness of breath, productive cough for 2 weeks. Hemoptysis for 2 days. COMPARISON: CHEST 1 VIEW 04/11/2017 3:07 PM. TECHNIQUE: 2 views. FINDINGS: Lungs/Pleura: No focal opacities evident. No pleural effusion. No pneumothorax. Normal volumes. Mediastinum: Heart and mediastinal contours are unremarkable. Other: None. IMPRESSION: Normal 2-view chest radiography. [facility]
[2018-01-25] MEDS ORDERED: DEXAMETHASONE 10 MG/ML VIAL PO STA (20:49)
[2018-01-25] MEDS ORDERED: CHERRY SYRUP 10 ML UDC PO ONE (21:02)
== END 2018-01-25 21:10 | disposition home or self-care (01) ==
LOC: ED 19:21
DX: J40 Bronchitis, not specified as acute or chronic (principal)
CPT/HCPCS: 71046; 93005; 99283; A9270

== ENCOUNTER 2018-04-03 20:01 | Emergency (ER) | payer OTHER ==
[2018-04-03] MEDS ORDERED: SODIUM CHLORIDE 0.9% 1,000 ML IV ONE ×2 (20:44→21:40)
--- NOTE | 2018-04-03 20:47 | ED Physician Documentation ---
PD HPI SYNCOPE - Stated complaint Stated Complaint: LIGHTHEADED - Chief complaint Chief Complaint: General - History obtained from History obtained from: Patient, Family - History of Present Illness Witnessed: Witnessed Timing - onset: Today Duration: Seconds Preceding symptoms: Vision changes, Diaphoresis, Light headed Associated symptoms: Nausea / vomiting, Abdominal pain Contributing factors: Decreased PO intake Injury occurred: None Similar symptoms before: No diagnosis Recently seen: Emergency Dept - Additional information Additional information: 22-year-old female has had a recent pelvic surgery With an endometrial ablation done and a right oophorectomy. She reports severe dysmenorrhea that has been going on for the past month as well. She was seen in the emergency department 2 days ago when she had excessive bleeding. She had a syncopal episode that day as well. She reports that she seems to have been recovering well from her surgery until about 1 week ago when she developed her menses and developed increased pain. She has now had issues with nausea and vomiting with intermittent diarrhea. She believes that she was able to adequately hydrate today she did drink 3 bottles of water and a quarter of a red bull. The patient has had 2 syncopal episodes today when while she was just sitting on her couch and passed out. She had a second syncopal episode when she was at the check encounter here in the emergency department. She did not injure herself with either 1 of these episodes. Review of Systems Constitutional: reports: Fatigue. denies: Fever, Chills Eyes: denies: Decreased vision Ears: denies: Ear pain Nose: denies: Rhinorrhea / runny nose, Congestion Throat: denies: Sore throat Cardiac: denies: Chest pain / pressure, Palpitations Respiratory: denies: Dyspnea, Cough GI: reports: Abdominal Pain, Nausea, Vomiting, Diarrhea : denies: Dysuria, Frequency Skin: denies: Rash Musculoskeletal: reports: Back pain. denies: Neck pain, Extremity pain Neurologic: reports: Generalized weakness. denies: Focal weakness, Numbness, Difficulty speaking PD PAST MEDICAL HISTORY - Past Medical History Cardiovascular: None Respiratory: None Neuro: None Endocrine/Autoimmune: None GI: None JAILOR: Endometriosis, Ovarian cysts : None HEENT: Other Psych: None Musculoskeletal: Other Derm: None - Past Surgical History Past Surgical History: Yes Ortho: Arthroscopic surgery /JAILOR: Other - Present Medications Home Medications: Ambulatory Orders Medication Instructions Recorded Confirmed Albuterol Sulf [Ventolin Hfa 1 - 2 puffs INH Q4HR PRN #1 inhaler 01/25/18 Inhaler] Hydrocodone/Acetaminophen [[place] 1 each PO Q6H PRN #15 tablet 04/01/18 5-325 Tablet] Ondansetron Odt [Zofran] 4 mg TL Q6H PRN #25 tablet 04/01/18 04/03/18 Sucralfate [Carafate] 1 gm PO ACHS #60 tablet 04/03/18 - Allergies Allergies/Adverse Reactions: Allergies Allergy/AdvReac Type Severity Reaction Status Date / Time acetaminophen [From Percocet] Allergy Itching Verified 04/03/18 20:04 latex Allergy Hives Verified 04/03/18 20:04 oxycodone [From Percocet] Allergy Itching Verified 04/03/18 20:04 tramadol Allergy Unknown Verified 04/03/18 20:04 - Social History Does the pt smoke?: No Smoking Status: Never smoker Does the pt drink ETOH?: No Does the pt have substance abuse?: No - Immunizations Immunizations are current?: Yes - POLST Patient has POLST: No PD ED PE NORMAL - Vitals Vital signs reviewed: Yes (hypertensive ) - General General: Alert and oriented X 3, No acute distress, Well developed/nourished, Other (flush cheecks ) - HEENT HEENT: Atraumatic, PERRL, EOMI - Neck Neck: Supple, no meningeal sign, No bony TTP - Cardiac Cardiac: RRR, No murmur - Respiratory Respiratory: No respiratory distress, Clear bilaterally - Abdomen Abdomen: Soft, Other (mild tenderness to the right lower quadrant. There is no garding or rebound and the surgical wounds appear weall healed without signs of inflamation. 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, No motor deficit, No sensory deficit, Normal speech Eye Opening: Spontaneous Motor: Obeys Commands Verbal: Oriented GCS Score: 15 - Psych Psych: Normal mood, Normal affect Results - Vitals Vitals: Vital Signs - 24 hr 04/03/18 04/03/18 04/03/18 20:04 20:46 21:25 Temperature 36.2 C L Heart Rate 82 70 81 Respiratory 20 18 16 Rate Blood Pressure 137/97 H 122/73 122/79 O2 Saturation 99 97 99 04/03/18 04/03/18 22:22 22:48 Temperature 36.5 C Heart Rate 72 64 Respiratory 20 22 Rate Blood Pressure 127/99 H 119/73 O2 Saturation 99 100 Oxygen O2 Source Room air - EKG (time done) 2011 Rate: Rate (enter#) (76) Rhythm: NSR Ischemia: Non specific changes (flat T waves ) Compare to prior EKG: Changed from prior EKG (SPT 04-01-18 rate has decreased and T waves are "flatter" ) Computer interpretation: Agree with computer - Labs Labs: Laboratory Tests 04/03/18 04/03/18 04/03/18 20:23 20:23 20:23 WBC 9.3 RBC 4.70 Hgb 14.1 Hct 40.6 MCV 86.2 MCH 30.1 MCHC 34.9 RDW 12.9 Plt Count 348 MPV 8.7 Neut # (Auto) 3.8 Lymph # (Auto) 4.0 H [place] # (Auto) 0.7 Eos # (Auto) 0.6 Baso # (Auto) 0.1 Absolute Nucleated RBC 0.00 Nucleated RBC % 0.1 Sodium 137 Potassium 3.2 L Chloride 105 Carbon Dioxide 25 Anion Gap 7.0 BUN 11 Creatinine 0.8 Estimated GFR (MDRD) 88 L Glucose 115 H Calcium 9.2 Total Bilirubin 0.4 AST 26 ALT 21 Alkaline Phosphatase 79 Troponin I < 0.04 Total Protein 7.1 Albumin 4.3 Globulin 2.8 Albumin/Globulin Ratio 1.5 Lipase 30 Urine Color Urine Clarity Urine pH Ur Specific [place] Urine Protein Urine Glucose (UA) Urine Ketones Urine Occult Blood Urine Nitrite Urine Bilirubin Urine Urobilinogen Ur Leukocyte Esterase Urine RBC Urine WBC Ur Squamous Epith Cells Urine Bacteria Ur Microscopic Review Urine Culture Comments Urine HCG, Qual 04/03/18 21:24 WBC RBC Hgb Hct MCV MCH MCHC RDW Plt Count MPV Neut # (Auto) Lymph # (Auto) [place] # (Auto) Eos # (Auto) Baso # (Auto) Absolute Nucleated RBC Nucleated RBC % Sodium Potassium Chloride Carbon Dioxide Anion Gap BUN Creatinine Estimated GFR (MDRD) Glucose Calcium Total Bilirubin AST ALT Alkaline Phosphatase Troponin I Total Protein Albumin Globulin Albumin/Globulin Ratio Lipase Urine Color YELLOW Urine Clarity HAZY Urine pH 7.5 Ur Specific [place] 1.010 Urine Protein NEGATIVE Urine Glucose (UA) NEGATIVE Urine Ketones NEGATIVE Urine Occult Blood MODERATE H Urine Nitrite NEGATIVE Urine Bilirubin NEGATIVE Urine Urobilinogen 0.2 (NORMAL) Ur Leukocyte Esterase NEGATIVE Urine RBC 0-5 Urine WBC 0-3 Ur Squamous Epith Cells MOD Squamous H Urine Bacteria Few Ur Microscopic Review INDICATED Urine Culture Comments NOT INDICATED Urine HCG, Qual NEGATIVE Procedures - IVC sono (time) 2044 Bedside IVC sono: IVC measures (cm) (0.77), IVC collapsed c insp (cm) (complete), Significant dehydration (est 2-3 liter deficit) 2312 Bedside IVC sono: IVC measures (cm) (1.60), Euvolemia PD MEDICAL DECISION MAKING - ED course Complexity details: reviewed old records, reviewed results, re-evaluated patient, considered differential, d/w patient, d/w family ED course: 22 y/o female with pelvic pain vomiting and syncope is found to be significantly dehydrated on interrogation of the IVC. She is administered IV saline. She has continued pelvic pain with menses and she has some reflux symptoms as well. She was scoped about one week before her surgery for nausea and vomiting of 2 months duration. This showed inflammation of the esophagus and she has been on prilosec with some improvement in symptoms. She was not able to take her prilosec today. She is administered IV protonix and PO carafate. In addition she is give IV decadron for post operative inflammation. She is instructed to eat less, take her prilosec and we have placed her on carafate as well. At the conclusion of treatment the patient's IVC was re-interrogated and is now 1.6 consistent with euvolemia. Departure - Departure Disposition: 01 Home, Self Care Clinical Impression: Post-operative pain, Dehydration, Esophagitis Syncopal episodes Qualifiers: Syncope type: vasovagal syncope Qualified Code(s): R55 - Syncope and collapse Instructions: ED Dehydration, ED GERD, ED Syncope Vasovagal Follow-Up: Alfie Starks ARNP [Primary Care Provider] - Prescriptions: Sucralfate [Carafate] 1 gm PO ACHS #60 tablet
[2018-04-03 20:52] LABS: BASOPHILS # (AUTO) 0.1 10^3/uL (0.0-0.1); BASOPHILS % (AUTO) 1.1 %; EOSINOPHILS # (AUTO) 0.6 10^3/uL (0.0-0.7); EOSINOPHILS % (AUTO) 6.9 %; HGB - HEMOGLOBIN 14.1 g/dL (12.0-16.0); LYMPHOCYTES % (AUTO) 43.4 %; MEAN CORPUSCULAR HEMOGLOBIN 30.1 pg (27.0-31.0); MEAN CORPUSCULAR HGB CONC 34.9 g/dL (32.0-36.0); MEAN CORPUSCULAR VOLUME 86.2 fL (81.0-99.0); MEAN PLATELET VOLUME 8.7 fL (7.9-10.8); MONOCYTES # (AUTO) 0.7 10^3/uL (0.0-1.0); MONOCYTES % (AUTO) 7.6 %; NEUTROPHILS # (AUTO) 3.8 10^3/uL (1.5-6.6); PLT - PLATELET COUNT 348 10^3/uL (130-450); RED CELL DISTRIBUTION WIDTH 12.9 % (12.0-15.0); WHITE BLOOD COUNT 9.3 x10^3/uL (4.8-10.8)
[2018-04-03 21:02] LABS: ALBUMIN 4.3 g/dL (3.2-5.5); ALBUMIN/GLOBULIN RATIO 1.5 (1.0-2.2); BILIRUBIN,TOTAL 0.4 mg/dL (0.2-1.0); CALCIUM 9.2 mg/dL (8.5-10.3); CREATININE 0.8 mg/dL (0.4-1.0); TOTAL PROTEIN 7.1 g/dL (6.7-8.2)
[2018-04-03] MEDS ORDERED: POTASSIUM CHLOR 10 MEQ/100 ML 10 MEQ/100 ML BAG IV ONE (21:14)
[2018-04-03] MEDS ORDERED: POTASSIUM BICARB 25 MEQ TABLET PO STA (21:14)
[2018-04-03 21:35] LABS: BILIRUBIN,URINE NEGATIVE (NEGATIVE); GLUCOSE, URINE (UA) NEGATIVE (NEGATIVE); KETONES,URINE (UA) NEGATIVE (NEGATIVE); LEUKOCYTE ESTERASE, URINE NEGATIVE (NEGATIVE); NITRITE,URINE NEGATIVE (NEGATIVE); OCCULT BLOOD,URINE MODERATE (NEGATIVE); PH,URINE 7.5 PH (5.0-7.5); PROTEIN,URINE NEGATIVE (NEGATIVE); UROBILINOGEN,URINE 0.2 (NORMAL) E.U./dL (NORMAL)
[2018-04-03 21:36] LABS: CLARITY,URINE HAZY (CLEAR)
[2018-04-03 21:37] LABS: HCG UR QUAL NEGATIVE
[2018-04-03] MEDS ORDERED: HYDROmorphone 1 MG/ML CARPUJECT IVP STA (21:40)
[2018-04-03] MEDS ORDERED: ONDANSETRON 4 MG/2 ML VIAL IVP STA (21:40)
[2018-04-03 21:45] LABS: BACTERIA,URINE Few /HPF (None Seen); RBC,URINE 0-5 /HPF (0-5); SQUAMOUS EPITHELIAL CELL,UR MOD Squamous (<= Few)
[2018-04-03] MEDS ORDERED: SUCRALFATE 1 GM/10 ML UDC PO STA (22:08)
[2018-04-03] MEDS ORDERED: PANTOPRAZOLE 40 MG VIAL IVP STA (22:08)
[2018-04-03] MEDS ORDERED: DEXAMETHASONE 10 MG/ML VIAL IVP STA (22:11)
[2018-04-03 23:26] VITALS: BP 108/84
== END 2018-04-03 23:25 | disposition home or self-care (01) ==
LOC: ED 20:01
DX: G89.18 Other acute postprocedural pain (principal); E86.0 Dehydration; K20.9 Esophagitis, unspecified; R55 Syncope and collapse; R94.31 Abnormal electrocardiogram [ECG] [EKG]; Z90.721 Acquired absence of ovaries, unilateral
CPT/HCPCS: 36415; 80053; 81001; 81025; 83690; 84484; 85025; 93005; 96361; 96365; 96375; 99284; A9270; J1170; 81003; 87086

== ENCOUNTER 2018-04-11 15:22 | Emergency (ER) | payer OTHER ==
[2018-04-11 15:29] VITALS: BP 141/107
[2018-04-11] MEDS ORDERED: KETOROLAC 30 MG/ML VIAL IVP STA (16:04)
[2018-04-11] MEDS ORDERED: ONDANSETRON 4 MG/2 ML VIAL IVP STA (16:04)
--- NOTE | 2018-04-11 16:13 | ED Physician Documentation ---
History of Present Illness - Stated complaint Stated Complaint: BULDGE L SIDE/VOMITING - Chief complaint Chief Complaint: Abd Pain - History obtained from History obtained from: Patient, Family - History of Present Illness Timing: Last night Pain level max: 8 Pain level now: 6 - Additonal information Additional information: 22-year-old female states that she developed abdominal pain and vomiting last night. States has not had a bowel movement for the past several days. Is not passing gas either. Has continued to have [place] today[place] done at that time per patient. She also stated that the left side of her abdomen was more swollen than the right side last night. Nothing makes it better or worse Review of Systems Ten Systems: 10 systems reviewed and negative Constitutional: denies: Fever, Chills Cardiac: denies: Chest pain / pressure Respiratory: denies: Cough GI: reports: Nausea, Vomiting. 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 cysts : None HEENT: Other Psych: None Musculoskeletal: Other Derm: None - Past Surgical History Past Surgical History: Yes General: Colonoscopy, EGD Ortho: Arthroscopic surgery /WOOD DIE MAKER: Other - Present Medications Home Medications: Ambulatory Orders Medication Instructions Recorded Confirmed Albuterol Sulf [Ventolin Hfa 1 - 2 puffs INH Q4HR PRN #1 inhaler 01/25/18 Inhaler] Hydrocodone/Acetaminophen [[place] 1 each PO Q6H PRN #15 tablet 04/01/18 5-325 Tablet] Sucralfate [Carafate] 1 gm PO ACHS #60 tablet 04/03/18 Promethazine [Phenergan] 25 04/11/18 - Allergies Allergies/Adverse Reactions: Allergies Allergy/AdvReac Type Severity Reaction Status Date / Time acetaminophen [From Percocet] Allergy Itching Verified 04/11/18 15:29 latex Allergy Hives Verified 04/03/18 20:04 oxycodone [From Percocet] Allergy Itching Verified 04/03/18 20:04 tramadol Allergy Unknown Verified 04/03/18 20:04 - Social History Does the pt smoke?: No Smoking Status: Never smoker Does the pt drink ETOH?: Yes ETOH Use: Wine, Liquor Does the pt have substance abuse?: No Substance Use and Type: Marijuana, Other - Immunizations Immunizations are current?: Yes - POLST Patient has POLST: No PD ED PE NORMAL - Vitals Vital signs reviewed: Yes - General General: Alert and oriented X 3, No acute distress - HEENT HEENT: Moist mucous membranes - Neck Neck: Supple, no meningeal sign - Cardiac Cardiac: RRR, Strong equal pulses - Respiratory Respiratory: No respiratory distress, Clear bilaterally - Abdomen Abdomen: Soft, Non distended, Other (Mild diffuse tenderness to palpation without peritoneal signs. No palpable hernias. Several healedMild diffuse tenderness to palpation without peritoneal signs. No palpable hernias. Several healed surgical incisions across the abdomen) - Back Back: No spinal TTP - Derm Derm: Warm and dry - Neuro Neuro: Alert and oriented X 3 - Psych Psych: Normal mood, Normal affect Results - Vitals Vitals: Vital Signs - 24 hr 04/11/18 15:27 Temperature 36 C L Heart Rate 94 Respiratory 20 Rate Blood Pressure 141/107 H O2 Saturation 97 Oxygen O2 Source Room air - Labs Labs: Laboratory Tests 04/11/18 04/11/18 04/11/18 16:13 16:13 16:35 WBC 9.8 RBC 4.95 Hgb 14.2 Hct 42.7 MCV 86.3 MCH 28.8 MCHC 33.3 RDW 13.0 Plt Count 374 MPV 8.0 Neut # (Auto) 4.4 Lymph # (Auto) 4.0 H [place] # (Auto) 0.7 Eos # (Auto) 0.5 Baso # (Auto) 0.1 Absolute Nucleated RBC 0.01 Nucleated RBC % 0.1 Sodium 136 Potassium 3.7 Chloride 106 Carbon Dioxide 23 Anion Gap 7.0 BUN 12 Creatinine 0.7 Estimated GFR (MDRD) 103 Glucose 97 Calcium 8.8 Total Bilirubin 0.3 AST 33 ALT 40 Alkaline Phosphatase 76 Total Protein 6.9 Albumin 4.0 Globulin 2.9 Albumin/Globulin Ratio 1.4 Lipase 37 Urine Color YELLOW Urine Clarity CLEAR Urine pH 6.0 Ur Specific [place] >=1.030 H Urine Protein NEGATIVE Urine Glucose (UA) NEGATIVE Urine Ketones NEGATIVE Urine Occult Blood TRACE-LYSE Urine Nitrite NEGATIVE Urine Bilirubin NEGATIVE Urine Urobilinogen 0.2 (NORMAL) Ur Leukocyte Esterase NEGATIVE Ur Microscopic Review NOT INDICATED Urine Culture Comments NOT INDICATED - Rads (name of study) abd/pelvis CT Radiology: Prelim report reviewed, EMP read contemporaneously, See rad report (Polycystic ovaries. Currently, left ovary borderline enlarged. If this lady's pain is in this area, dedicated pelvic ultrasound should be considered. 2. Stable, otherwise unremarkable exam. ) PD MEDICAL DECISION MAKING - ED course Complexity details: reviewed results, re-evaluated patient, considered differential, d/w patient, d/w family ED course: 22-year-old female with abdominal pain of unclear etiology. Pain improved in the emergency department. Has hydrocodone and Phenergan at home for her symptoms. No acute findings on CT scan. Possible pain from adhesions? Will have her follow-up with her doctor for further evaluation and care. Tolerating p.o. without difficulty here. Patient counseled regarding signs and symptoms for which I believe and urgent re-evaluation would be necessary. Patient with good understanding of and agreement to plan and is comfortable going home at this time This document was made in part using voice recognition software. While efforts are made to proofread this document, sound alike and grammatical errors may occur. Departure - Departure Disposition: 01 Home, Self Care Clinical Impression: Vomiting Qualifiers: Vomiting type: unspecified Vomiting Intractability: non-intractable Nausea presence: with nausea Qualified Code(s): R11.2 - Nausea with vomiting, unspecified Abdominal pain Qualifiers: Abdominal location: generalized Qualified Code(s): R10.84 - Generalized abdominal pain Condition: Good Instructions: ED Abdominal Pain Unkn Cause Follow-Up: Alfie Starks ARNP [Primary Care Provider] - Within 1 week Comments: The cause of your symptoms is unclear today. Return if you worsen. Your CT scan does not show any acute abnormalities nor does your laboratory testing. Follow-up with your doctor for further care. Discharge Date/Time: 04/11/18 18:39
[2018-04-11 16:23] LABS: BASOPHILS # (AUTO) 0.1 10^3/uL (0.0-0.1); BASOPHILS % (AUTO) 1.2 %; EOSINOPHILS # (AUTO) 0.5 10^3/uL (0.0-0.7); EOSINOPHILS % (AUTO) 4.9 %; HGB - HEMOGLOBIN 14.2 g/dL (12.0-16.0); LYMPHOCYTES % (AUTO) 41.4 %; MEAN CORPUSCULAR HEMOGLOBIN 28.8 pg (27.0-31.0); MEAN CORPUSCULAR HGB CONC 33.3 g/dL (32.0-36.0); MEAN CORPUSCULAR VOLUME 86.3 fL (81.0-99.0); MONOCYTES # (AUTO) 0.7 10^3/uL (0.0-1.0); MONOCYTES % (AUTO) 7.1 %; NEUTROPHILS # (AUTO) 4.4 10^3/uL (1.5-6.6); NEUTROPHILS % (AUTO) 45.4 %; PLT - PLATELET COUNT 374 10^3/uL (130-450); RED BLOOD COUNT 4.95 10^6/uL (4.20-5.40); WHITE BLOOD COUNT 9.8 x10^3/uL (4.8-10.8)
[2018-04-11] MEDS ORDERED: IOVERSOL 320 100 ML VIAL IVP ONE ×2 (16:32→17:09)
[2018-04-11 16:38] LABS: ALBUMIN/GLOBULIN RATIO 1.4 (1.0-2.2); BILIRUBIN,TOTAL 0.3 mg/dL (0.2-1.0); CALCIUM 8.8 mg/dL (8.5-10.3); CREATININE 0.7 mg/dL (0.4-1.0); TOTAL PROTEIN 6.9 g/dL (6.7-8.2)
[2018-04-11 16:50] LABS: BILIRUBIN,URINE NEGATIVE (NEGATIVE); GLUCOSE, URINE (UA) NEGATIVE (NEGATIVE); KETONES,URINE (UA) NEGATIVE (NEGATIVE); LEUKOCYTE ESTERASE, URINE NEGATIVE (NEGATIVE); NITRITE,URINE NEGATIVE (NEGATIVE); OCCULT BLOOD,URINE TRACE-LYSE (NEGATIVE); PROTEIN,URINE NEGATIVE (NEGATIVE); UROBILINOGEN,URINE 0.2 (NORMAL) E.U./dL (NORMAL)
[2018-04-11 16:52] LABS: CLARITY,URINE CLEAR (CLEAR)
--- NOTE | 2018-04-11 17:51 | CT Report ---
Reason: diffuse abd pain, +vomit. no BM. poss obstruction? Procedure Date: 04/11/2018 Accession Number: [id number] / [id number] Procedure: CT - Abdomen/Pelvis W/ CPT Code: FULL RESULT: EXAM: CT ABDOMEN AND PELVIS EXAM DATE: 04/11/2018 04:41 PM. CLINICAL HISTORY: Diffuse abdominal pain, increased vomiting. No bowel movement. Possible obstruction? COMPARISONS: ABDOMEN/PELVIS W/ 12/18/2017 12:11 PM. TECHNIQUE: Routine helical CT imaging was performed through the abdomen and pelvis. IV contrast: 90 ML OPTIRAY 320. Enteric contrast: No. Reconstructions: Coronal and sagittal. In accordance with CT protocol optimization, one or more of the following dose reduction techniques were utilized for this exam: automated exposure control, adjustment of mA and/or KV based on patient size, or use of iterative reconstructive technique. FINDINGS: Lung Bases: Very small hiatal hernia. Unremarkable. Liver: Normal. No masses. Gallbladder/Bile Ducts: Unremarkable. Spleen: Normal. Pancreas: Normal. Adrenal Glands: Normal. Kidneys: Normal. No masses or hydronephrosis. Peritoneal Cavity/Bowel: Normal. No free fluid, free air or adenopathy. No masses or acute inflammatory process. The appendix is well visualized and normal. Pelvic Organs: Normal caliber uterus. Interval resolution of borderline enlarged right ovary and resolution of multiple 1.2 cm and smaller right ovarian cysts. Interval increase in caliber of the left ovary now borderline prominent measuring 4.7 x 3.1 x 3.8 cm. Increasing number and caliber of left ovarian cysts measuring 1.9 cm and smaller. No free fluid. No stones in the small caliber urinary bladder. Vasculature: No aneurysms or other significant abnormality. Bones: No significant abnormality. Other: None. IMPRESSION: 1. Polycystic ovaries. Currently, left ovary borderline enlarged. If this lady's pain is in this area, dedicated pelvic ultrasound should be considered. 2. Stable, otherwise unremarkable exam. [facility]
[2018-04-11] MEDS ORDERED: HYDROcod/ACETAM 5/325 MG TABLET PO STA (18:28)
== END 2018-04-11 18:39 | disposition home or self-care (01) ==
LOC: ED 15:22
DX: R11.2 Nausea with vomiting, unspecified (principal); R10.84 Generalized abdominal pain
CPT/HCPCS: 36415; 74177; 80053; 81003; 83690; 85025; 96374; 99283; Q9967; 81001; 87086

== ENCOUNTER 2018-04-13 14:53 | Emergency (ER) | payer OTHER ==
[2018-04-13] MEDS ORDERED: ONDANSETRON 4 MG/2 ML VIAL IVP STA (15:05)
[2018-04-13] MEDS ORDERED: KETOROLAC 30 MG/ML VIAL IVP STA (15:05)
[2018-04-13] MEDS ORDERED: HYDROmorphone 1 MG/ML CARPUJECT IVP STA (15:05)
--- NOTE | 2018-04-13 15:07 | ED Physician Documentation ---
PD HPI ABD PAIN - Stated complaint Stated Complaint: ABDOMINAL PAIN - Chief complaint Chief Complaint: Abd Pain - History obtained from History obtained from: Patient - History of Present Illness Timing - onset: Today (22-year-old woman with history of polycystic ovary disease status post right oophorectomy a couple of months ago and she also has endometriosis presents with sudden onset intermittent very severe right lower quadrant pain over the last half hour with nausea but no vomiting. She is currently midcycle on her menses. Last menstrual period was about 2 weeks ago.) Review of Systems Ten Systems: 10 systems reviewed and negative Constitutional: denies: Fever, Chills Cardiac: denies: Chest pain / pressure, Palpitations Respiratory: denies: Dyspnea, Cough PD PAST MEDICAL HISTORY - Past Medical History Cardiovascular: None Respiratory: None Neuro: None Endocrine/Autoimmune: None GI: None RN CLINICAL APPEALS: Endometriosis, Ovarian cysts : None HEENT: Other Psych: None Musculoskeletal: Other Derm: None - Past Surgical History Past Surgical History: Yes General: Colonoscopy, EGD Ortho: Arthroscopic surgery /RN CLINICAL APPEALS: Other - Present Medications Home Medications: Ambulatory Orders Medication Instructions Recorded Confirmed Albuterol Sulf [Ventolin Hfa 1 - 2 puffs INH Q4HR PRN #1 inhaler 01/25/18 Inhaler] Hydrocodone/Acetaminophen [[place] 1 each PO Q6H PRN #15 tablet 04/01/18 5-325 Tablet] Sucralfate [Carafate] 1 gm PO ACHS #60 tablet 04/03/18 Promethazine [Phenergan] 25 04/11/18 Hydrocodone/Acetaminophen 1 - 2 each PO Q6H PRN #10 tablet 04/13/18 [Hydrocodon-Acetaminophen 5-325] - Allergies Allergies/Adverse Reactions: Allergies Allergy/AdvReac Type Severity Reaction Status Date / Time acetaminophen [From Percocet] Allergy Itching Verified 04/13/18 14:59 latex Allergy Hives Verified 04/13/18 14:59 oxycodone [From Percocet] Allergy Itching Verified 04/13/18 14:59 tramadol Allergy Unknown Verified 04/13/18 14:59 - Social History Does the pt smoke?: No Smoking Status: Never smoker Does the pt drink ETOH?: Yes Does the pt have substance abuse?: No - Immunizations Immunizations are current?: Yes - POLST Patient has POLST: No PD ED PE NORMAL - Vitals Vital signs reviewed: Yes - General General: Alert and oriented X 3, Other (Screaming crying and anxious, histrionic) - HEENT HEENT: PERRL, EOMI - Neck Neck: Supple, no meningeal sign, No bony TTP - Cardiac Cardiac: RRR, No murmur - Respiratory Respiratory: No respiratory distress, Clear bilaterally - Abdomen Abdomen: Other (Soft with mild right lower quadrant tenderness, no guarding or rebound) - Back Back: No CVA TTP, No spinal TTP - Derm Derm: Normal color, Warm and dry - Extremities Extremities: No edema, No calf tenderness / cord - Neuro Neuro: Alert and oriented X 3, Normal speech Results - Vitals Vitals: Vital Signs - 24 hr 04/13/18 04/13/18 14:57 16:16 Temperature 36.4 C L Heart Rate 135 H 78 Respiratory 28 H 14 Rate Blood Pressure 111/58 L 132/79 H O2 Saturation 100 97 Oxygen O2 Source Room air - Labs Labs: Laboratory Tests 04/13/18 04/13/18 04/13/18 15:15 15:15 15:15 WBC 10.5 RBC 4.92 Hgb 14.3 Hct 42.5 MCV 86.3 MCH 29.0 MCHC 33.6 RDW 12.8 Plt Count 377 MPV 8.4 Neut # (Auto) 5.3 Lymph # (Auto) 4.2 H [place] # (Auto) 0.4 Eos # (Auto) 0.4 Baso # (Auto) 0.1 Absolute Nucleated RBC 0.01 Nucleated RBC % 0.1 VBG pH 7.426 H VBG pCO2 28.5 L VBG pO2 87.0 H VBG HCO3 18.3 L VBG Total CO2 19.2 L VBG O2 Saturation 97.2 H VBG Base Excess -4.5 L Sodium 134 L Potassium 3.2 L Chloride 102 Carbon Dioxide 21 Anion Gap 11.0 BUN 11 Creatinine 0.7 Estimated GFR (MDRD) 103 Glucose 180 H Calcium 9.0 Total Bilirubin 0.5 AST 38 ALT 34 Alkaline Phosphatase 80 Total Protein 7.0 Albumin 4.0 Globulin 3.0 Albumin/Globulin Ratio 1.3 Lipase 32 Urine Color Urine Clarity Urine pH Ur Specific [place] Urine Protein Urine Glucose (UA) Urine Ketones Urine Occult Blood Urine Nitrite Urine Bilirubin Urine Urobilinogen Ur Leukocyte Esterase Ur Microscopic Review Urine Culture Comments Urine HCG, Qual Urine Opiates Screen Ur Oxycodone Screen Urine Methadone Screen Ur Propoxyphene Screen Ur Barbiturates Screen Ur Tricyclics Screen Ur Phencyclidine Scrn Ur Amphetamine Screen U Methamphetamines Scrn U Benzodiazepines Scrn Urine Cocaine Screen U Cannabinoids Screen 04/13/18 16:11 WBC RBC Hgb Hct MCV MCH MCHC RDW Plt Count MPV Neut # (Auto) Lymph # (Auto) [place] # (Auto) Eos # (Auto) Baso # (Auto) Absolute Nucleated RBC Nucleated RBC % VBG pH VBG pCO2 VBG pO2 VBG HCO3 VBG Total CO2 VBG O2 Saturation VBG Base Excess Sodium Potassium Chloride Carbon Dioxide Anion Gap BUN Creatinine Estimated GFR (MDRD) Glucose Calcium Total Bilirubin AST ALT Alkaline Phosphatase Total Protein Albumin Globulin Albumin/Globulin Ratio Lipase Urine Color YELLOW Urine Clarity CLEAR Urine pH 6.5 Ur Specific [place] 1.015 Urine Protein NEGATIVE Urine Glucose (UA) NEGATIVE Urine Ketones NEGATIVE Urine Occult Blood NEGATIVE Urine Nitrite NEGATIVE Urine Bilirubin NEGATIVE Urine Urobilinogen 0.2 (NORMAL) Ur Leukocyte Esterase NEGATIVE Ur Microscopic Review NOT INDICATED Urine Culture Comments NOT INDICATED Urine HCG, Qual NEGATIVE Urine Opiates Screen POSITIVE H Ur Oxycodone Screen POSITIVE H Urine Methadone Screen NEGATIVE Ur Propoxyphene Screen NEGATIVE Ur Barbiturates Screen NEGATIVE Ur Tricyclics Screen NEGATIVE Ur Phencyclidine Scrn NEGATIVE Ur Amphetamine Screen NEGATIVE U Methamphetamines Scrn NEGATIVE U Benzodiazepines Scrn NEGATIVE Urine Cocaine Screen NEGATIVE U Cannabinoids Screen POSITIVE H - Rads (name of study) Pelvic sono Radiology: EMP read contemporaneously (Left ovary normal with follicles, status post right oophorectomy, small to moderate volume simple intrapelvic free fluid.) PD MEDICAL DECISION MAKING - ED course Complexity details: reviewed old records (Very frequent emergency department visits, mostly for abdominal pain, 18 visits to the emergency department in 2018.) ED course: 22-year-old woman presents with sudden onset and severe right pelvic pain. The pattern is not consistent with appendicitis. She was inconsolable on arrival but improved improved stepwise with medications. Pelvic sonogram shows small free fluid, likely recently ruptured ovarian cyst. Departure - Departure Disposition: 01 Home, Self Care Clinical Impression: Postoperative abdominal pain Cyst of ovary Qualifiers: Laterality: left Qualified Code(s): N83.202 - Unspecified ovarian cyst, left side Condition: Good Record reviewed to determine appropriate education?: Yes Instructions: ED Pelvic Pain [facility] Prescriptions: Hydrocodone/Acetaminophen [Hydrocodon-Acetaminophen 5-325] 1 - 2 each PO Q6H PRN #10 tablet PRN Reason: pain Comments: Call your doctor to arrange a follow-up appointment, make the next available appointment. In the interim, return anytime if worse or if new symptoms develop. The policy of this emergency department is to not give more than 3 prescriptions for narcotics or other controlled substances in any 1 year. You have already surpassed this benchmark. I encourage you to follow up with your primary care physician or to establish care with a primary care physician for ongoing pain management. You are always welcome to seek emergency care here for this or new issues but there will likely be limitations in the prescription of narcotic pain medication.
[2018-04-13 15:38] LABS: BASOPHILS # (AUTO) 0.1 10^3/uL (0.0-0.1); BASOPHILS % (AUTO) 1.2 %; EOSINOPHILS # (AUTO) 0.4 10^3/uL (0.0-0.7); EOSINOPHILS % (AUTO) 3.8 %; HGB - HEMOGLOBIN 14.3 g/dL (12.0-16.0); LYMPHOCYTES # (AUTO) 4.2 10^3/uL (1.5-3.5); LYMPHOCYTES % (AUTO) 39.9 %; MEAN CORPUSCULAR HGB CONC 33.6 g/dL (32.0-36.0); MEAN CORPUSCULAR VOLUME 86.3 fL (81.0-99.0); MEAN PLATELET VOLUME 8.4 fL (7.9-10.8); MONOCYTES # (AUTO) 0.4 10^3/uL (0.0-1.0); MONOCYTES % (AUTO) 3.9 %; NEUTROPHILS # (AUTO) 5.3 10^3/uL (1.5-6.6); NEUTROPHILS % (AUTO) 51.2 %; PLT - PLATELET COUNT 377 10^3/uL (130-450); RED BLOOD COUNT 4.92 10^6/uL (4.20-5.40); RED CELL DISTRIBUTION WIDTH 12.8 % (12.0-15.0); WHITE BLOOD COUNT 10.5 x10^3/uL (4.8-10.8)
[2018-04-13 15:40] LABS: VBG BASE EXCESS -4.5 mmol/L (-2 - +2); VBG PCO2 28.5 mmHg (41-51); VBG PH 7.426 (7.31-7.41); VBG TOTAL CO2 19.2 mmol/L (24-29)
[2018-04-13 15:45] LABS: ALBUMIN/GLOBULIN RATIO 1.3 (1.0-2.2); BILIRUBIN,TOTAL 0.5 mg/dL (0.2-1.0); CREATININE 0.7 mg/dL (0.4-1.0)
[2018-04-13 16:23] LABS: MUDS CUTOFF CONCENTRATIONS CUTOFF CONC BELOW:
[2018-04-13 16:28] LABS: BILIRUBIN,URINE NEGATIVE (NEGATIVE); GLUCOSE, URINE (UA) NEGATIVE (NEGATIVE); KETONES,URINE (UA) NEGATIVE (NEGATIVE); LEUKOCYTE ESTERASE, URINE NEGATIVE (NEGATIVE); NITRITE,URINE NEGATIVE (NEGATIVE); OCCULT BLOOD,URINE NEGATIVE (NEGATIVE); PH,URINE 6.5 PH (5.0-7.5); PROTEIN,URINE NEGATIVE (NEGATIVE); UROBILINOGEN,URINE 0.2 (NORMAL) E.U./dL (NORMAL)
[2018-04-13 16:30] LABS: CLARITY,URINE CLEAR (CLEAR); HCG UR QUAL NEGATIVE
[2018-04-13 16:43] LABS: AMPHETAMINE SCREEN,URINE NEGATIVE (NEGATIVE); BENZODIAZEPINES SCREEN, URINE NEGATIVE (NEGATIVE); COCAINE SCREEN URINE NEGATIVE (NEGATIVE); METHADONE SCREEN, URINE NEGATIVE (NEGATIVE); METHAMPHETAMINES SCREEN, URINE NEGATIVE (NEGATIVE); OPIATE SCREEN, URINE POSITIVE (NEGATIVE); OXYCODONE SCREEN, URINE POSITIVE (NEGATIVE); PROPOXYPHENE SCREEN, URINE NEGATIVE (NEGATIVE); TRICYCLIC ANTIDEPRESSANT,URINE NEGATIVE (NEGATIVE)
[2018-04-13] MEDS ORDERED: SUMAtriptan 6 MG/0.5 ML VIAL SUBQ STA (17:57)
[2018-04-13] MEDS ORDERED: HYDROmorphone 2 MG/ML VIAL IVP STA (17:57)
--- NOTE | 2018-04-13 18:02 | Ultrasound Report ---
Reason: pelvic pain, R Procedure Date: 04/13/2018 Accession Number: [id number] / [id number] Procedure: US - Pelvic w/Transvag+Doppler Comp CPT Code: FULL RESULT: EXAM: PELVIC ULTRASOUND WITH DOPPLERS CLINICAL HISTORY: Right pelvic pain. Post right oophorectomy in March 2018. COMPARISON: PEL NON OB W/TV DOP LTD 04/01/2018 1:47 AM ABDOMEN/PELVIS W/ 04/11/2018 4:41 PM ABDOMEN/PELVIS W/ 12/18/2017 12:11 PM TECHNIQUE: Realtime transabdominal imaging performed to identify the uterus and adnexa and as an overview of other pelvic structures, followed by transvaginal imaging for better assessment of the endometrium and adnexa, with static image documentation. Color flow imaging and Doppler spectral analysis was performed to evaluate blood flow to the ovaries given pelvic pain FINDINGS: Uterus: Anteflexed position. 7.5 x 3.1 x 4.3 cm, volume 52 cc. Homogeneous myometrial echotexture. Endometrium: 11 mm. Normal. Cervix: Unremarkable. Right Ovary/Adnexa: The ovary is surgically absent. No adnexal abnormality detected. Left Ovary: 3.7 x 2.4 x 2.9 cm, volume 13.4 cc. Normal echotexture. Contains normal follicles, including a 2.0 cm dominant follicle. Arterial and venous blood flow are present. PSV 25.2 cm/sec. RI 0.73. Free Fluid: Small to moderate volume anechoic free fluid in the right adnexa. Other: None. IMPRESSION: 1. Unremarkable premenopausal sonographic appearance of the uterus and left ovary. Arterial and venous blood flow are present to the left ovary. 2. Post right oophorectomy. 3. Small to moderate volume simple intrapelvic free fluid. RADIA
[2018-04-13] MEDS ORDERED: PROMETHAZINE INJ 25 MG in SODIUM CHLORIDE 0.9% 50 ML IV STA (18:33)
[2018-04-13 18:55] VITALS: BP 136/74
== END 2018-04-13 18:55 | disposition home or self-care (01) ==
LOC: ED 14:53
DX: G89.18 Other acute postprocedural pain (principal); N83.202 Unspecified ovarian cyst, left side; Z90.721 Acquired absence of ovaries, unilateral
CPT/HCPCS: 36415; 76830; 76856; 80053; 80306; 81003; 81025; 82803; 83690; 85025; 93975; 96372; 96374; 96375; 96376; 99283; J1170; J7040; 81001; 87086

== ENCOUNTER 2018-06-17 03:32 | Emergency (ER) | payer OTHER ==
--- NOTE | 2018-06-17 03:51 | ED Physician Documentation ---
PD HPI FEMALE - Stated complaint Stated Complaint: PELVIC PX/VOMITING - Chief complaint Chief Complaint: Abd Pain - History obtained from History obtained from: Patient - History of Present Illness Timing - onset: Enter time (03:00), Today Timing - details: Abrupt onset Pain level max: 9 Associated symptoms: Pelvic pain, Urinary frequency. No: Vaginal bleeding, Vaginal discharge, Dysuria Contributing factors: Other (uncertain if (does not think she is, but she says she has been trying to get )) Similar symptoms before: Diagnosis (ovarian cysts, endometriosis) Recently seen: Other (18 ED visits over past twelve months (mostly [facility], but some ED and one visit to an ED in [place] per [facility] report)) - Additional information Additional information: woke 3 AM with severe left pelvic pain, nausea, and vomiting. She says she does not have any prescription pain mediations at home. She says she does have phenergan. Review of Systems Constitutional: denies: Fever, Chills, Sweats Cardiac: reports: Reviewed and negative Respiratory: reports: Reviewed and negative GI: reports: Abdominal Pain, Nausea, Vomiting. denies: Constipation, Diarrhea : reports: Frequency. 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 : None HEENT: Other Psych: None Musculoskeletal: Other Derm: None - Past Surgical History Past Surgical History: Yes General: Colonoscopy, EGD Ortho: Arthroscopic surgery /TELETYPE MECHANIC: Other - Present Medications Home Medications: Ambulatory Orders Medication Instructions Recorded Confirmed FLUoxetine [PROzac] 10 mg PO DAILY 06/17/18 06/17/18 Metformin HCl 1,000 mg PO DAILY 06/17/18 06/17/18 Omeprazole 20 mg PO DAILY 06/17/18 06/17/18 - Allergies Allergies/Adverse Reactions: Allergies Allergy/AdvReac Type Severity Reaction Status Date / Time acetaminophen [From Percocet] Allergy Itching Verified 06/17/18 03:36 latex Allergy Hives Verified 06/17/18 03:36 oxycodone [From Percocet] Allergy Itching Verified 06/17/18 03:36 tramadol Allergy Unknown Verified 06/17/18 03:36 - Social History Does the pt smoke?: No Smoking Status: Never smoker Does the pt drink ETOH?: Yes Does the pt have substance abuse?: No - Immunizations Immunizations are current?: Yes - POLST Patient has POLST: No PD ED PE NORMAL - Vitals Vital signs reviewed: Yes - General General: Alert and oriented X 3, Well developed/nourished, Other (appears uncomfortable) - HEENT HEENT: Moist mucous membranes - Cardiac Cardiac: RRR, No murmur - Respiratory Respiratory: No respiratory distress, Clear bilaterally - Abdomen Abdomen: Soft, Non distended, Other (tender to palpation left hemipelvis without rebound or guarding) - Back Back: No CVA TTP - Derm Derm: Normal color, Warm and dry Results - Vitals Vitals: Vital Signs - 24 hr 06/17/18 06/17/18 06/17/18 03:36 04:41 05:06 Temperature 36.5 C Heart Rate 80 70 74 Respiratory 16 17 18 Rate Blood Pressure 146/89 H 109/49 L 132/76 H O2 Saturation 98 100 99 06/17/18 05:40 Temperature 36.3 C L Heart Rate 79 Respiratory 16 Rate Blood Pressure 124/78 O2 Saturation 99 Oxygen O2 Source Room air - Labs Labs: Laboratory Tests 06/17/18 06/17/18 06/17/18 04:09 04:09 04:09 WBC 11.4 H RBC 4.79 Hgb 13.8 Hct 39.9 MCV 83.4 MCH 28.8 MCHC 34.5 RDW 12.5 Plt Count 301 MPV 7.6 L Neut # (Auto) 5.2 Lymph # (Auto) 4.2 H [place] # (Auto) 0.8 Eos # (Auto) 1.1 H Baso # (Auto) 0.1 Absolute Nucleated RBC 0.01 Nucleated RBC % 0.1 Sodium 137 Potassium 3.4 L Chloride 103 Carbon Dioxide 21 Anion Gap 13.0 BUN 23 H Creatinine 0.8 Estimated GFR (MDRD) 88 L Glucose 92 Calcium 9.6 Total Bilirubin 0.5 AST 28 ALT 27 Alkaline Phosphatase 74 Total Protein 6.9 Albumin 4.2 Globulin 2.7 Albumin/Globulin Ratio 1.6 Lipase 35 Serum HCG, Qual NEGATIVE Urine Color Urine Clarity Urine pH Ur Specific [place] Urine Protein Urine Glucose (UA) Urine Ketones Urine Occult Blood Urine Nitrite Urine Bilirubin Urine Urobilinogen Ur Leukocyte Esterase Ur Microscopic Review Urine Culture Comments 06/17/18 05:10 WBC RBC Hgb Hct MCV MCH MCHC RDW Plt Count MPV Neut # (Auto) Lymph # (Auto) [place] # (Auto) Eos # (Auto) Baso # (Auto) Absolute Nucleated RBC Nucleated RBC % Sodium Potassium Chloride Carbon Dioxide Anion Gap BUN Creatinine Estimated GFR (MDRD) Glucose Calcium Total Bilirubin AST ALT Alkaline Phosphatase Total Protein Albumin Globulin Albumin/Globulin Ratio Lipase Serum HCG, Qual Urine Color YELLOW Urine Clarity CLEAR Urine pH 5.5 Ur Specific [place] >=1.030 H Urine Protein NEGATIVE Urine Glucose (UA) NEGATIVE Urine Ketones [place]ACE Urine Occult Blood NEGATIVE Urine Nitrite NEGATIVE Urine Bilirubin NEGATIVE Urine Urobilinogen 0.2 (NORMAL) Ur Leukocyte Esterase NEGATIVE Ur Microscopic Review NOT INDICATED Urine Culture Comments NOT INDICATED PD MEDICAL DECISION MAKING - ED course Complexity details: reviewed old records, reviewed results, re-evaluated patient, considered differential, d/w patient ED course: patient reported no relief with morphine, but nausea resolved with 8mg zofran. After HCG resulted (negative), toradol and dilaudid given and patient reports excellent relief. She is in NAD on reevaluation. Departure - Departure Disposition: 01 Home, Self Care Clinical Impression: Pelvic pain Condition: Good Instructions: ED Pelvic Pain [facility] Follow-Up: Alfie Starks ARNP [Primary Care Provider] - (Call this morning to arrange for next appointment) Discharge Date/Time: 06/17/18 05:47
[2018-06-17] MEDS ORDERED: MORPHINE 2 MG/ML CARPUJECT IVP STA (04:03)
[2018-06-17] MEDS ORDERED: SODIUM CHLORIDE 0.9% 1,000 ML IV STA (04:03)
[2018-06-17] MEDS ORDERED: ONDANSETRON 4 MG/2 ML VIAL IVP STA (04:04)
[2018-06-17 04:17] LABS: BASOPHILS # (AUTO) 0.1 10^3/uL (0.0-0.1); BASOPHILS % (AUTO) 1.1 %; EOSINOPHILS # (AUTO) 1.1 10^3/uL (0.0-0.7); EOSINOPHILS % (AUTO) 9.7 %; HGB - HEMOGLOBIN 13.8 g/dL (12.0-16.0); LYMPHOCYTES # (AUTO) 4.2 10^3/uL (1.5-3.5); LYMPHOCYTES % (AUTO) 36.9 %; MEAN CORPUSCULAR HEMOGLOBIN 28.8 pg (27.0-31.0); MEAN CORPUSCULAR HGB CONC 34.5 g/dL (32.0-36.0); MEAN CORPUSCULAR VOLUME 83.4 fL (81.0-99.0); MEAN PLATELET VOLUME 7.6 fL (7.9-10.8); MONOCYTES # (AUTO) 0.8 10^3/uL (0.0-1.0); MONOCYTES % (AUTO) 7.1 %; NEUTROPHILS # (AUTO) 5.2 10^3/uL (1.5-6.6); NEUTROPHILS % (AUTO) 45.2 %; PLT - PLATELET COUNT 301 10^3/uL (130-450); RED BLOOD COUNT 4.79 10^6/uL (4.20-5.40); RED CELL DISTRIBUTION WIDTH 12.5 % (12.0-15.0); WHITE BLOOD COUNT 11.4 x10^3/uL (4.8-10.8)
[2018-06-17 04:29] LABS: ALBUMIN 4.2 g/dL (3.2-5.5); ALBUMIN/GLOBULIN RATIO 1.6 (1.0-2.2); BILIRUBIN,TOTAL 0.5 mg/dL (0.2-1.0); CALCIUM 9.6 mg/dL (8.5-10.3); CREATININE 0.8 mg/dL (0.4-1.0); TOTAL PROTEIN 6.9 g/dL (6.7-8.2)
[2018-06-17 04:43] LABS: HCG,QUALITATIVE BLOOD NEGATIVE
[2018-06-17] MEDS ORDERED: KETOROLAC 30 MG/ML VIAL IVP STA (04:57)
[2018-06-17] MEDS ORDERED: HYDROmorphone 1 MG/ML CARPUJECT IVP STA (04:58)
[2018-06-17 05:14] LABS: BILIRUBIN,URINE NEGATIVE (NEGATIVE); GLUCOSE, URINE (UA) NEGATIVE (NEGATIVE); KETONES,URINE (UA) TRACE mg/dL (NEGATIVE); LEUKOCYTE ESTERASE, URINE NEGATIVE (NEGATIVE); NITRITE,URINE NEGATIVE (NEGATIVE); OCCULT BLOOD,URINE NEGATIVE (NEGATIVE); PH,URINE 5.5 PH (5.0-7.5); PROTEIN,URINE NEGATIVE (NEGATIVE); UROBILINOGEN,URINE 0.2 (NORMAL) E.U./dL (NORMAL)
[2018-06-17 05:16] LABS: CLARITY,URINE CLEAR (CLEAR)
[2018-06-17] MEDS ORDERED: HYDROcod/ACET 5/325 Prepack 4 PO STA (05:37)
[2018-06-17 05:47] VITALS: BP 124/78
== END 2018-06-17 05:47 | disposition home or self-care (01) ==
LOC: ED 03:32
DX: R10.2 Pelvic and perineal pain (principal); R11.2 Nausea with vomiting, unspecified
CPT/HCPCS: 36415; 80053; 81003; 83690; 84703; 85025; 96374; 96375; 99282; 99284; J1170; 81001; 87086

== ENCOUNTER 2018-07-08 20:10 | Emergency (ER) | payer OTHER ==
--- NOTE | 2018-07-08 20:49 | ED Physician Documentation ---
PD HPI FEMALE - Stated complaint Stated Complaint: FEVER - Chief complaint Chief Complaint: Fever - History obtained from History obtained from: Patient - History of Present Illness Timing - onset: Today Timing - duration: Days (1) Timing - details: Abrupt onset (She had onset of feeling chills with fever. She took her temperature was just over 100. She did a home test that was positive twice. She was feeling nauseous with repetitive vomiting several times today. She was having some left lower abdominal crampy pain. She did receive a shot of Ovidrel for fertility enhancement a week ago. She states her last menstrual period was 2-1/2 weeks ago.) Associated symptoms: Fever (today to 100.3), Pelvic pain. No: Vaginal discharge, Dysuria Contributing factors: (positive home test twice today), Sexually active, Other (Fertility enhancement medication a week ago but had not had any nausea or cramps until today.). 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 denies: Chills, Myalgias Nose: denies: Rhinorrhea / runny nose, Congestion Throat: denies: Sore throat Respiratory: denies: Cough GI: reports: Abdominal Pain, Nausea, Vomiting (today). 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 : None HEENT: Other Psych: None Musculoskeletal: Other Derm: None - Past Surgical History Past Surgical History: Yes General: Colonoscopy, EGD Ortho: Arthroscopic surgery /WELDING TECHNICIAN: Other - Present Medications Home Medications: Ambulatory Orders Medication Instructions Recorded Confirmed FLUoxetine [PROzac] 10 mg PO DAILY 06/17/18 06/17/18 Metformin HCl 1,000 mg PO DAILY 06/17/18 06/17/18 Omeprazole 20 mg PO DAILY 06/17/18 06/17/18 Hydrocodone/Acetaminophen [[place] 1 each PO Q6H PRN #15 tablet 07/09/18 5-325 Tablet] Naproxen 375 mg PO BID #20 tablet 07/09/18 Ondansetron Odt [Zofran] 4 mg TL Q6H PRN #10 tablet 07/09/18 - Allergies Allergies/Adverse Reactions: Allergies Allergy/AdvReac Type Severity Reaction Status Date / Time acetaminophen [From Percocet] Allergy Itching Verified 06/17/18 03:36 latex Allergy Hives Verified 06/17/18 03:36 oxycodone [From Percocet] Allergy Itching Verified 06/17/18 03:36 tramadol Allergy Unknown Verified 06/17/18 03:36 - Social History Does the pt smoke?: No Smoking Status: Never smoker Does the pt drink ETOH?: Yes Does the pt have substance abuse?: No - Immunizations Immunizations are current?: Yes - POLST Patient has POLST: No PD ED PE NORMAL - Vitals Vital signs reviewed: Yes - General General: Alert and oriented X 3, No acute distress, Well developed/nourished - HEENT HEENT: Moist mucous membranes, Pharynx benign - Neck Neck: Supple, no meningeal sign, No adenopathy - Cardiac Cardiac: RRR, No murmur - Respiratory Respiratory: Clear bilaterally - Abdomen Abdomen: Normal bowel sounds, Soft, Non distended, No organomegaly, Other (tender LLQ with local guarding. ) - Female Female : Deferred Results - Vitals Vitals: Vital Signs - 24 hr 07/08/18 07/09/18 07/09/18 20:14 00:37 01:33 Temperature 36.7 C 36.3 C L Heart Rate 79 68 64 Respiratory 18 16 16 Rate Blood Pressure 110/89 H 112/86 H 97/49 L O2 Saturation 98 100 100 Oxygen O2 Source Room air - Labs Labs: Laboratory Tests 07/08/18 07/08/18 07/08/18 20:45 21:15 21:15 WBC 10.7 RBC 4.71 Hgb 14.0 Hct 39.4 MCV 83.6 MCH 29.8 MCHC 35.6 RDW 12.7 Plt Count 326 MPV 7.7 L Neut # (Auto) 5.5 Lymph # (Auto) 4.2 H [place] # (Auto) 0.7 Eos # (Auto) 0.2 Baso # (Auto) 0.1 Absolute Nucleated RBC 0.00 Nucleated RBC % 0.0 HCG, Quant 24.89 Urine Color YELLOW Urine Clarity CLEAR Urine pH 5.5 Ur Specific [place] 1.010 Urine Protein NEGATIVE Urine Glucose (UA) NEGATIVE Urine Ketones NEGATIVE Urine Occult Blood NEGATIVE Urine Nitrite NEGATIVE Urine Bilirubin NEGATIVE Urine Urobilinogen 0.2 (NORMAL) Ur Leukocyte Esterase NEGATIVE Ur Microscopic Review NOT INDICATED Urine Culture Comments NOT INDICATED Urine HCG, Qual NEGATIVE - Rads (name of study) pelvic U/S Radiology: Prelim report reviewed (Overstimulated left ovary with multiple small follicles. No free fluid is seen. There is good blood flow to the ovary.), See rad report PD MEDICAL DECISION MAKING - ED course Complexity details: reviewed results (Her TG is only 24 so inconsistent with . Presume the nausea and vomiting relate to either a viral illness or more likely side effects from the medication a week ago. This could also be giving the hyperstimulation of the ovary with the subsequent pelvic cramping and pain. Suggest follow-up with her gynecology in 2-3 days for reexam and they could repeat the hCG.), considered differential (With the report of a positive home test, concern for ectopic . The symptoms of nausea and abdominal cramping could be side effects from the overdrill injection a week ago. We will get serum hCG as well as a pelvic ultrasound. Check urine as well.), d/w patient Departure - Departure Disposition: 01 Home, Self Care Clinical Impression: Pelvic pain Condition: Stable Record reviewed to determine appropriate education?: Yes Follow-Up: Alfie Starks ARNP [Primary Care Provider] - Prescriptions: Hydrocodone/Acetaminophen [[place] 5-325 Tablet] 1 each PO Q6H PRN #15 tablet PRN Reason: Pain Naproxen 375 mg PO BID #20 tablet Ondansetron Odt [Zofran] 4 mg TL Q6H PRN #10 tablet PRN Reason: Nausea / Vomiting Comments: Your test is negative here and your quantitative hCG is 24 which would suggest not . However recheck with your primary care and have that rechecked in 2-3 days to see if it is changing. For now presume some inflammation through the ovary. The ultrasound showed hyperstimulation of the ovary with multiple small follicles but no large cyst. There is no free fluid to suggest bleeding or rupture. There is blood flow to the ovary. This would be consistent side effect to the Ovidrel medication. Nausea can be a side effect as well. He is naproxen twice daily for the next 7-10 days. Add ondansetron if needed for nausea. Add Tylenol or hydrocodone if needed for pain. Follow-up with your primary care in a few days. Discharge Date/Time: 07/09/18 01:34
[2018-07-08 21:12] LABS: BILIRUBIN,URINE NEGATIVE (NEGATIVE); GLUCOSE, URINE (UA) NEGATIVE (NEGATIVE); KETONES,URINE (UA) NEGATIVE (NEGATIVE); LEUKOCYTE ESTERASE, URINE NEGATIVE (NEGATIVE); NITRITE,URINE NEGATIVE (NEGATIVE); OCCULT BLOOD,URINE NEGATIVE (NEGATIVE); PH,URINE 5.5 PH (5.0-7.5); PROTEIN,URINE NEGATIVE (NEGATIVE); UROBILINOGEN,URINE 0.2 (NORMAL) E.U./dL (NORMAL)
[2018-07-08] MEDS ORDERED: ONDANSETRON ODT 4 MG TABLET TL STA (21:12)
[2018-07-08 21:13] LABS: CLARITY,URINE CLEAR (CLEAR); HCG UR QUAL NEGATIVE
[2018-07-08 21:24] LABS: BASOPHILS # (AUTO) 0.1 10^3/uL (0.0-0.1); EOSINOPHILS # (AUTO) 0.2 10^3/uL (0.0-0.7); EOSINOPHILS % (AUTO) 2.2 %; LYMPHOCYTES # (AUTO) 4.2 10^3/uL (1.5-3.5); LYMPHOCYTES % (AUTO) 39.5 %; MEAN CORPUSCULAR HEMOGLOBIN 29.8 pg (27.0-31.0); MEAN CORPUSCULAR HGB CONC 35.6 g/dL (32.0-36.0); MEAN CORPUSCULAR VOLUME 83.6 fL (81.0-99.0); MEAN PLATELET VOLUME 7.7 fL (7.9-10.8); MONOCYTES # (AUTO) 0.7 10^3/uL (0.0-1.0); MONOCYTES % (AUTO) 6.3 %; NEUTROPHILS # (AUTO) 5.5 10^3/uL (1.5-6.6); PLT - PLATELET COUNT 326 10^3/uL (130-450); RED BLOOD COUNT 4.71 10^6/uL (4.20-5.40); RED CELL DISTRIBUTION WIDTH 12.7 % (12.0-15.0); WHITE BLOOD COUNT 10.7 x10^3/uL (4.8-10.8)
[2018-07-08] MEDS ORDERED: SODIUM CHLORIDE 0.9% 1,000 ML IV ONE (22:34)
[2018-07-08] MEDS ORDERED: diphenhydrAMINE INJ 50 MG/ML VIAL IVP STA (22:35)
[2018-07-08] MEDS ORDERED: KETOROLAC 30 MG/ML VIAL IVP STA (22:35)
[2018-07-08] MEDS ORDERED: PROMETHAZINE INJ 12.5 MG in SODIUM CHLORIDE 0.9% 50 ML IV STA (22:35)
--- NOTE | 2018-07-08 23:45 | Ultrasound Report ---
Reason: early ; feverish Procedure Date: 07/08/2018 Accession Number: [id number] / [id number] Procedure: US - OB First Trimester CPT Code: FULL RESULT: EXAM: PELVIS ULTRASOUND, LIMITED EXAM DATE: 07/08/2018 10:44 PM. CLINICAL HISTORY: Early ; feverish. COMPARISON: None. TECHNIQUE: Real-time scanning was performed with static images obtained. FINDINGS: Uterus measures 7.2 x 4.1 x 4.4 cm. Anteverted. Endothelium 1.1 cm. No intrauterine gestation. Right ovary has been surgically removed. Left ovary 7.8 x 3.7 x 4.5 cm. Volume 68 mL. Multiple cysts involving the left ovary measuring up to 3 cm. No free fluid. IMPRESSION: 1. No intrauterine gestation. 2. Stimulated left ovary with multiple follicles. RADIA
[2018-07-09] MEDS ORDERED: HYDROcod/ACET 5/325 Prepack 4 PO STA (01:00)
[2018-07-09] MEDS ORDERED: ONDANSETRON ODT 4 MG Prepack 2 TL PRN (01:00)
[2018-07-09 01:34] VITALS: BP 97/49
== END 2018-07-09 01:34 | disposition home or self-care (01) ==
LOC: ED 20:10
DX: R10.2 Pelvic and perineal pain (principal); N83.292 Other ovarian cyst, left side; N80.9 Endometriosis, unspecified
CPT/HCPCS: 36415; 76801; 76817; 81003; 81025; 84702; 85025; 96365; 96375; 99283; J1200; J7040; Q0162; 81001; 87086

== ENCOUNTER 2018-07-10 16:05 | Emergency (ER) | payer OTHER ==
[2018-07-10] MEDS ORDERED: METOCLOPRAMIDE 10 MG/2 ML VIAL IVP STA (16:25)
[2018-07-10] MEDS ORDERED: HYDROmorphone 1 MG/ML CARPUJECT IVP STA (16:25)
[2018-07-10] MEDS ORDERED: SODIUM CHLORIDE 0.9% 1,000 ML IV ONE (16:25)
[2018-07-10] MEDS ORDERED: diphenhydrAMINE INJ 50 MG/ML VIAL IVP STA (16:26)
[2018-07-10 16:39] LABS: BASOPHILS % (AUTO) 0.5 %; EOSINOPHILS # (AUTO) 0.2 10^3/uL (0.0-0.7); EOSINOPHILS % (AUTO) 1.5 %; HGB - HEMOGLOBIN 13.8 g/dL (12.0-16.0); LYMPHOCYTES # (AUTO) 3.8 10^3/uL (1.5-3.5); LYMPHOCYTES % (AUTO) 36.2 %; MEAN CORPUSCULAR HGB CONC 34.4 g/dL (32.0-36.0); MEAN CORPUSCULAR VOLUME 84.4 fL (81.0-99.0); MEAN PLATELET VOLUME 7.8 fL (7.9-10.8); MONOCYTES # (AUTO) 0.5 10^3/uL (0.0-1.0); NEUTROPHILS % (AUTO) 56.8 %; PLT - PLATELET COUNT 350 10^3/uL (130-450); RED BLOOD COUNT 4.76 10^6/uL (4.20-5.40); RED CELL DISTRIBUTION WIDTH 12.8 % (12.0-15.0); WHITE BLOOD COUNT 10.5 x10^3/uL (4.8-10.8)
[2018-07-10 16:52] LABS: ALBUMIN 4.3 g/dL (3.2-5.5); ALBUMIN/GLOBULIN RATIO 1.4 (1.0-2.2); BILIRUBIN,TOTAL 0.7 mg/dL (0.2-1.0); CALCIUM 9.2 mg/dL (8.5-10.3); CREATININE 0.8 mg/dL (0.4-1.0); TOTAL PROTEIN 7.4 g/dL (6.7-8.2)
--- NOTE | 2018-07-10 16:53 | ED Physician Documentation ---
PD HPI ABD PAIN - Stated complaint Stated Complaint: CHEST PX/V/ABD PX - Chief complaint Chief Complaint: Abd Pain - History obtained from History obtained from: Patient, Family - History of Present Illness Timing - onset: How many days ago (3) Timing - duration: Days (3) Timing - details: Gradual onset Pain level max: 8 Pain level now: 7 Quality: Aching, Pain Location: RUQ Radiation: No: Chest, , Lower back, Left flank, Left shoulder, Right flank, Right shoulder, Upper back Improved by: Vomiting Worsened by: Eating Associated symptoms: Nausea, Vomiting. No: Fever, Hematemesis, Diarrhea, Constipation, Melena, Hematochezia, Dysuria Similar symptoms before: Diagnosis (ovarian hyperstimulation on US 2 days ago. Ovidril injection 8 days ago.) Recently seen: Emergency Dept (2 days ago for same. increased nausea and vomiting today.) Review of Systems Ten Systems: 10 systems reviewed and negative Constitutional: denies: Fever, Chills Nose: denies: Rhinorrhea / runny nose, Congestion Respiratory: denies: Cough GI: reports: Vomiting. 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, Ovarian cysts : None HEENT: Other Psych: None Musculoskeletal: Other Derm: None - Past Surgical History Past Surgical History: Yes General: Colonoscopy, EGD Ortho: Arthroscopic surgery /LIC[employer]ED [employer] MANAGER: Other - Present Medications Home Medications: Ambulatory Orders Medication Instructions Recorded Confirmed FLUoxetine [PROzac] 10 mg PO DAILY 06/17/18 06/17/18 Metformin HCl 1,000 mg PO DAILY 06/17/18 06/17/18 Omeprazole 20 mg PO DAILY 06/17/18 06/17/18 Hydrocodone/Acetaminophen [[place] 1 each PO Q6H PRN #15 tablet 07/09/18 5-325 Tablet] Naproxen 375 mg PO BID #20 tablet 07/09/18 Ondansetron Odt [Zofran] 4 mg TL Q6H PRN #10 tablet 07/09/18 Lidocaine Ointment 5% [Xylocaine 1 applic TOP QID PRN #1 tube 07/10/18 Ointment 5%] Metoclopramide [Reglan] 5 mg PO Q8H PRN #10 tablet 07/10/18 Omeprazole 20 mg PO BID #60 tab 07/10/18 Promethazine Supp [Phenergan Supp] 25 mg [place] Q6H PRN #10 supp 07/10/18 - Allergies Allergies/Adverse Reactions: Allergies Allergy/AdvReac Type Severity Reaction Status Date / Time acetaminophen [From Percocet] Allergy Itching Verified 07/10/18 16:14 latex Allergy Hives Verified 07/10/18 16:14 oxycodone [From Percocet] Allergy Itching Verified 07/10/18 16:14 tramadol Allergy Unknown Verified 07/10/18 16:14 - Social History Does the pt smoke?: No Smoking Status: Never smoker Does the pt drink ETOH?: Yes Does the pt have substance abuse?: No - Immunizations Immunizations are current?: Yes - POLST Patient has POLST: No PD ED PE NORMAL - Vitals Vital signs reviewed: Yes - General General: Alert and oriented X 3, No acute distress - HEENT HEENT: Moist mucous membranes - Neck Neck: Supple, no meningeal sign - Cardiac Cardiac: RRR, Strong equal pulses - Respiratory Respiratory: No respiratory distress, Clear bilaterally - Abdomen Abdomen: Soft, Non distended, Other (mild RUQ TTP. neg rodríguez's sign) - Derm Derm: Warm and dry - Extremities Extremities: No edema - Neuro Neuro: Alert and oriented X 3 - Psych Psych: Normal mood, Normal affect Results - Vitals Vitals: Vital Signs - 24 hr 07/10/18 16:12 Temperature 37 C Heart Rate 70 Respiratory 21 Rate Blood Pressure 123/90 H O2 Saturation 97 Oxygen O2 Source Room air - Labs Labs: Laboratory Tests 07/10/18 07/10/18 07/10/18 16:32 16:32 16:32 WBC 10.5 RBC 4.76 Hgb 13.8 Hct 40.1 MCV 84.4 MCH 29.0 MCHC 34.4 RDW 12.8 Plt Count 350 MPV 7.8 L Neut # (Auto) 6.0 Lymph # (Auto) 3.8 H [place] # (Auto) 0.5 Eos # (Auto) 0.2 Baso # (Auto) 0.0 Absolute Nucleated RBC 0.00 Nucleated RBC % 0.0 Sodium 135 Potassium 3.4 L Chloride 104 Carbon Dioxide 20 L Anion Gap 11.0 BUN 13 Creatinine 0.8 Estimated GFR (MDRD) 88 L Glucose 113 H Calcium 9.2 Total Bilirubin 0.7 AST 29 ALT 29 Alkaline Phosphatase 70 Total Protein 7.4 Albumin 4.3 Globulin 3.1 Albumin/Globulin Ratio 1.4 Lipase 33 HCG, Quant 9.63 - Rads (name of study) Right upper quadrant ultrasound Radiology: Prelim report reviewed, EMP read contemporaneously, See rad report (Fatty liver. No evidence of cholecystitis) PD MEDICAL DECISION MAKING - ED course Complexity details: reviewed results, re-evaluated patient, considered differential, d/w patient, d/w family ED course: Patient feels better after Reglan and IV fluids. Tolerating p.o. without difficulty. HCG is decreasing. Likely that this represents continuation of her ovarian hyperstimulation syndrome. We will have her follow-up with her doctor for further care. Did discuss using the Reglan very sparingly as it can interact with her Prozac. Patient and family counseled regarding signs and symptoms for which I believe and urgent re-evaluation would be necessary. Patient with good understanding of and agreement to plan and is comfortable going home at this time This document was made in part using voice recognition software. While efforts are made to proofread this document, sound alike and grammatical errors may occur. She states that rectal Phenergan causes burning, therefore will trial lidocaine ointment with this. She is also out of her Prilosec Departure - Departure Disposition: 01 Home, Self Care Clinical Impression: Ovarian hyperstimulation syndrome Condition: Good Instructions: ED Nausea Vomiting Follow-Up: Alfie Starks ARNP [Primary Care Provider] - Jocy Weeks MD [Provider Admit Priv/Credential] - Within 3 Days Prescriptions: Lidocaine Ointment 5% [Xylocaine Ointment 5%] 1 applic TOP QID PRN #1 tube PRN Reason: hemorrhoids Metoclopramide [Reglan] 5 mg PO Q8H PRN #10 tablet PRN Reason: Nausea / Vomiting Omeprazole 20 mg PO BID #60 tab.rap. Promethazine Supp [Phenergan Supp] 25 mg [place] Q6H PRN #10 supp PRN Reason: Nausea / Vomiting Comments: Follow-up with Dr. Weeks within the next 3 days for further evaluation and care. Return if you worsen. Use of the Reglan very sparingly as it may interact with your Prozac. Your symptoms are likely due to ovarian hyperstimulation syndrome.
--- NOTE | 2018-07-10 17:54 | Ultrasound Report ---
Reason: RUQ abd pain Procedure Date: 07/10/2018 Accession Number: [id number] / [id number] Procedure: US - Abdomen Limited CPT Code: FULL RESULT: EXAM: ABDOMEN ULTRASOUND LIMITED, RUQ EXAM DATE: 07/10/2018 04:31 PM. CLINICAL HISTORY: RUQ abd pain. COMPARISON: None. TECHNIQUE: Real-time scanning was performed with static images obtained. FINDINGS: Liver: Diffuse increased echotexture of the hepatic parenchyma is consistent with steatosis. No focal lesions. Main portal vein flow: Hepatopetal. Gallbladder: Normal. No stones, wall thickening, or sonographic Esteban's sign. Biliary System: CBD measures 3 mm. No intrahepatic or extrahepatic ductal dilatation. Other: Normal right kidney without hydronephrosis. Measures 10.9 cm long axis. IMPRESSION: Diffuse hepatic steatosis. No focal lesions. No cholelithiasis or cholecystitis. RADIA
[2018-07-10 18:18] VITALS: BP 136/84
== END 2018-07-10 18:33 | disposition home or self-care (01) ==
LOC: ED 16:05
DX: N98.1 Hyperstimulation of ovaries (principal)
CPT/HCPCS: 36415; 76705; 80053; 83690; 84702; 85025; 96374; 99283; J1170; J1200; J2765

== ENCOUNTER 2018-09-13 11:07 | Outpatient (CLI) | payer OTHER ==
--- NOTE | 2018-09-13 12:44 | CT Report ---
Reason: NASAL OBSTRUCTION Procedure Date: 09/13/2018 Accession Number: [id number] / [id number] Procedure: CT - Sinuses CPT Code: FULL RESULT: EXAM: CT SINUS EXAM DATE: 09/13/2018 11:23 AM. HISTORY: Nasal obstruction. Chronic sinusitis. History of septoplasty approximately 12 months prior. COMPARISONS: None. TECHNIQUE: Routine multi-axial CT imaging performed through the sinuses. Iodinated IV contrast: None. Reconstructions: Multiplanar reformats. In accordance with CT protocol optimization, one or more of the following dose reduction techniques were utilized for this exam: automated exposure control, adjustment of mA and/or KV based on patient size, or use of iterative reconstructive technique. FINDINGS: RIGHT Frontal: Normal. Ethmoid: Normal. Maxillary: Normal. Sphenoid: Normal. Drainage Pathways: The frontal recess, ostiomeatal complex and sphenoethmoidal recess are patent and normal. LEFT Frontal: Normal. Ethmoid: Normal. Maxillary: There is a minimal posterior basal mucoperiosteal thickening. Sphenoid: Normal. Drainage Pathways: The frontal recess, ostiomeatal complex and sphenoethmoidal recess are patent and normal. Nasal Cavity: There is asymmetric thickening of right nasal mucosal structures compared to the left, compatible with normal nasal cycling. There is mucoperiosteal thickening throughout the nasal cavity. Osseous Structures: Unremarkable. Orbits: Unremarkable. Other: None. IMPRESSION: Mucoperiosteal thickening within the nasal cavity with patent sinus drainage pathways and relative sparing of the sinuses as described. RADIA
== END 2018-09-13 11:08 | disposition home or self-care (01) ==
LOC: DI 11:07
PROVIDERS: ATTEND Otolaryngology Otolaryngology/Facial Plastic Surgery
DX: J34.89 Other specified disorders of nose and nasal sinuses (principal)
CPT/HCPCS: 70486

== ENCOUNTER 2018-09-15 23:00 | Emergency (ER) | payer OTHER ==
[2018-09-16 00:27] VITALS: BP 145/111
== END 2018-09-16 01:17 | disposition left against medical advice (07) ==
LOC: ED 23:00
DX: Z53.21 Procedure and treatment not carried out due to patient leaving prior to being seen by health care provider (principal)
CPT/HCPCS: 99282

== ENCOUNTER 2018-10-22 14:39 | Emergency (ER) | payer OTHER ==
--- NOTE | 2018-10-22 15:52 | ED Physician Documentation ---
PD HPI WOUND RECHECK - Stated complaint Stated Complaint: INCISION CHECK/POST SURGERY - Chief complaint Chief Complaint: General - Histroy obtained from History obtained from: Patient - History of Present Illness Location: Abdomen Timing - onset: Yesterday Pain level max: 0 Pain level now: 0 Associated symptoms: No: Fever, Redness, Swelling, Drainage - Additional information Additional information: 23-year-old female states laparoscopic hysterectomy yesterday. States 1 of her wounds opened today and she is requesting it to be reglued. No drainage. No fevers. No redness. Nothing makes it better or worse. 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 : None HEENT: Other Psych: None Musculoskeletal: Other Derm: None - Past Surgical History Past Surgical History: Yes General: Colonoscopy, EGD Ortho: Arthroscopic surgery /COATING MACHINE HELPER: Other - Present Medications Home Medications: Ambulatory Orders Medication Instructions Recorded Confirmed FLUoxetine [PROzac] 10 mg PO DAILY 06/17/18 06/17/18 Metformin HCl 1,000 mg PO DAILY 06/17/18 06/17/18 Omeprazole 20 mg PO DAILY 06/17/18 06/17/18 Hydrocodone/Acetaminophen [[place] 1 each PO Q6H PRN #15 tablet 07/09/18 5-325 Tablet] Naproxen 375 mg PO BID #20 tablet 07/09/18 Ondansetron Odt [Zofran] 4 mg TL Q6H PRN #10 tablet 07/09/18 Lidocaine Ointment 5% [Xylocaine 1 applic TOP QID PRN #1 tube 07/10/18 Ointment 5%] Metoclopramide [Reglan] 5 mg PO Q8H PRN #10 tablet 07/10/18 Omeprazole 20 mg PO BID #60 tab 07/10/18 Promethazine Supp [Phenergan Supp] [address] Q6H PRN #10 supp 07/10/18 - Allergies Allergies/Adverse Reactions: Allergies Allergy/AdvReac Type Severity Reaction Status Date / Time acetaminophen [From Percocet] Allergy Itching Verified 07/10/18 16:14 latex Allergy Hives Verified 07/10/18 16:14 oxycodone [From Percocet] Allergy Itching Verified 07/10/18 16:14 prochlorperazine Allergy Unknown Verified 10/22/18 15:01 [From Compazine] tramadol Allergy Unknown Verified 07/10/18 16:14 - Social History Does the pt smoke?: No Smoking Status: Never smoker Does the pt drink ETOH?: Yes Does the pt have substance abuse?: No - Immunizations Immunizations are current?: Yes - POLST Patient has POLST: No PD ED PE NORMAL - Vitals Vital signs reviewed: Yes - General General: Alert and oriented X 3, No acute distress - HEENT HEENT: Moist mucous membranes - Abdomen Abdomen: Soft, Non tender, Non distended, Other (Left lower quadrant incision is mildly dehisced.) - Derm Derm: Warm and dry - Neuro Neuro: Alert and oriented X 3 Results - Vitals Vitals: Vital Signs - 24 hr 10/22/18 10/22/18 14:57 16:13 Temperature 36.7 C 36.9 C Heart Rate 76 74 Respiratory 20 19 Rate Blood Pressure 114/78 124/71 O2 Saturation 93 99 Oxygen O2 Source Room air PD MEDICAL DECISION MAKING - ED course Complexity details: considered differential, d/w patient ED course: Dermabond was applied over the slightly dehisced wound. No evidence of infection. No drainage. Warnings of infection and instructions on wound care given at bedside. Also counseled on how to minimize scarring. Patient counseled regarding signs and symptoms for which I believe and urgent re-evaluation would be necessary. Patient with good understanding of and agreement to plan and is comfortable going home at this time This document was made in part using voice recognition software. While efforts are made to proofread this document, sound alike and grammatical errors may occur. Departure - Departure Disposition: 01 Home, Self Care Clinical Impression: Wound dehiscence Condition: Good Instructions: ED Wound Check Post Op No Infec, ED Wound Care Follow-Up: Alfie Starks ARNP [Primary Care Provider] - As Needed Comments: Follow-up with your doctor. Return if you worsen. Return especially for redness, swelling or drainage from the wound. Discharge Date/Time: 10/22/18 16:13
[2018-10-22 16:14] VITALS: BP 124/71
== END 2018-10-22 16:13 | disposition home or self-care (01) ==
LOC: ED 14:39
DX: T81.31XA Disruption of external operation (surgical) wound, not elsewhere classified, initial encounter (principal); Y83.8 Other surgical procedures as the cause of abnormal reaction of the patient, or of later complication, without mention of misadventure at the time of the procedure; Z90.710 Acquired absence of both cervix and uterus
CPT/HCPCS: 99281; 99282

== ENCOUNTER 2018-10-30 07:18 | Emergency (ER) | payer OTHER ==
[2018-10-30 07:32] VITALS: BP 126/91
--- NOTE | 2018-10-30 07:44 | ED Physician Documentation ---
History of Present Illness - Stated complaint Stated Complaint: GLF/L SIDE PX/POST OP - Chief complaint Chief Complaint: General - History obtained from History obtained from: Patient - History of Present Illness Timing: Prior to arrival - Additonal information Additional information: Patient is a 23-year-old female about 10 days status post elective hysterectomy for endometriosis presenting with lower abdominal pain after she accidentally tripped up the stairs and hit her abdomen. Patient denies other injuries. Patient states she had an episode of nausea with dry heaves, but denies urinary or stool changes. Patient also denies complications related to her wounds from today's fall. No other particular abdominal pain. No other improving or worsening factors noted. Patient reports having Dilaudid and Phenergan at home for postsurgical medications. Review of Systems GI: reports: Abdominal Pain, Nausea, Vomiting. 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 cysts : None HEENT: Other Psych: None Musculoskeletal: Other Derm: None - Past Surgical History Past Surgical History: Yes General: Colonoscopy, EGD Ortho: Arthroscopic surgery /FARM BOSS: Hysterectomy, Other - Present Medications Home Medications: Ambulatory Orders Medication Instructions Recorded Confirmed FLUoxetine [PROzac] 10 mg PO DAILY 06/17/18 06/17/18 Metformin HCl 1,000 mg PO DAILY 06/17/18 06/17/18 Omeprazole 20 mg PO DAILY 06/17/18 06/17/18 Hydrocodone/Acetaminophen [[place] 1 each PO Q6H PRN #15 tablet 07/09/18 5-325 Tablet] Naproxen 375 mg PO BID #20 tablet 07/09/18 Ondansetron Odt [Zofran] 4 mg TL Q6H PRN #10 tablet 07/09/18 Lidocaine Ointment 5% [Xylocaine 1 applic TOP QID PRN #1 tube 07/10/18 Ointment 5%] Metoclopramide [Reglan] 5 mg PO Q8H PRN #10 tablet 07/10/18 Omeprazole 20 mg PO BID #60 tab. 07/10/18 Promethazine Supp [Phenergan Supp] 25 mg [place] Q6H PRN #10 supp 07/10/18 - Allergies Allergies/Adverse Reactions: Allergies Allergy/AdvReac Type Severity Reaction Status Date / Time acetaminophen [From Percocet] Allergy Itching Verified 10/30/18 07:29 latex Allergy Hives Verified 10/30/18 07:29 oxycodone [From Percocet] Allergy Itching Verified 10/30/18 07:29 prochlorperazine Allergy Unknown Verified 10/30/18 07:29 [From Compazine] tramadol Allergy Unknown Verified 10/30/18 07:29 - Social History Does the pt smoke?: No Smoking Status: Never smoker Does the pt drink ETOH?: Yes Does the pt have substance abuse?: No - Immunizations Immunizations are current?: Yes - POLST Patient has POLST: No PD ED PE NORMAL - Vitals Vital signs reviewed: Yes - General General: Alert and oriented X 3, No acute distress, Well developed/nourished - HEENT HEENT: Atraumatic, Moist mucous membranes - Neck Neck: Supple, no meningeal sign - Cardiac Cardiac: RRR, No murmur - Respiratory Respiratory: No respiratory distress, Clear bilaterally - Abdomen Abdomen: Normal bowel sounds, Soft, Non tender, Non distended, Other (No guarding or rebound. No evidence of trauma including ecchymosis. Multiple laparoscopic wounds closed, otherwise intact without signs of infection or drainage.) - Derm Derm: Normal color, Warm and dry, No rash, Other (Except as stated above) - Extremities Extremities: No deformity, No tenderness to palpate - Neuro Neuro: Alert and oriented X 3, No motor deficit, No sensory deficit - Psych Psych: Normal mood, Normal affect Results - Vitals Vitals: Vital Signs - 24 hr 10/30/18 07:29 Temperature 36.9 C Heart Rate 80 Respiratory 17 Rate Blood Pressure 126/91 H O2 Saturation 98 Oxygen O2 Source Room air - Labs Labs: Laboratory Tests 10/30/18 08:07 Urine Color DARK YELLOW Urine Clarity CLEAR Urine pH 5.5 Ur Specific [place] >=1.030 H Urine Protein NEGATIVE Urine Glucose (UA) NEGATIVE Urine Ketones TRACE Urine Occult Blood NEGATIVE Urine Nitrite NEGATIVE Urine Bilirubin NEGATIVE Urine Urobilinogen 0.2 (NORMAL) Ur Leukocyte Esterase NEGATIVE Ur Microscopic Review NOT INDICATED Urine Culture Comments NOT INDICATED PD MEDICAL DECISION MAKING - ED course Complexity details: re-evaluated patient, considered differential, d/w patient, d/w family ED course: Patient recently had elective hysterectomy and injured her lower abdomen after mechanical fall earlier today. Patient denies other injury. Abdominal exam is benign with no signs of surgical or acute abdomen present. Initially do not find evidence of trauma. Wounds are intact without infection or other complication. At this time, do not feel patient requires invasive testing or imaging. Offered ibuprofen for pain control and obtained a urine sample which not reflect gross or microscopic hematuria. Have low concern for intra- abdominal trauma or other complication with recent surgery. Discussed supportive cares, return precautions, appropriate follow-up otherwise. Patient voiced understanding and is comfortable with discharge plan. Departure - Departure Disposition: 01 Home, Self Care Clinical Impression: Abdominal pain Qualifiers: Abdominal location: lower abdomen, unspecified Qualified Code(s): R10.30 - Lower abdominal pain, unspecified Condition: Good Instructions: ED Strain Abdominal Muscle Follow-Up: Alfie Starks ARNP [Primary Care Provider] - Within 3 Days Comments: Recommend rest, heat application to area for muscle spasm, and follow-up with your primary care physician in next 2 to 3 days. May follow-up with surgery as scheduled. Return to ED sooner if experience new injury or worsening symptoms.
[2018-10-30] MEDS ORDERED: IBUPROFEN 600 MG TABLET PO STA (07:53)
[2018-10-30 08:30] LABS: BILIRUBIN,URINE NEGATIVE (NEGATIVE); CLARITY,URINE CLEAR (CLEAR); GLUCOSE, URINE (UA) NEGATIVE (NEGATIVE); KETONES,URINE (UA) TRACE mg/dL (NEGATIVE); LEUKOCYTE ESTERASE, URINE NEGATIVE (NEGATIVE); NITRITE,URINE NEGATIVE (NEGATIVE); OCCULT BLOOD,URINE NEGATIVE (NEGATIVE); PH,URINE 5.5 PH (5.0-7.5); PROTEIN,URINE NEGATIVE (NEGATIVE); UROBILINOGEN,URINE 0.2 (NORMAL) E.U./dL (NORMAL)
== END 2018-10-30 09:05 | disposition home or self-care (01) ==
LOC: ED 07:18
DX: R10.30 Lower abdominal pain, unspecified (principal); W10.9XXA Fall (on) (from) unspecified stairs and steps, initial encounter; R11.2 Nausea with vomiting, unspecified; Z90.710 Acquired absence of both cervix and uterus
CPT/HCPCS: 81003; 99283; 99284; A9270; 81001; 87086

== ENCOUNTER 2019-01-26 08:58 | Emergency (ER) | payer OTHER ==
[2019-01-26 09:21] LABS: BILIRUBIN,URINE NEGATIVE (NEGATIVE); GLUCOSE, URINE (UA) NEGATIVE (NEGATIVE); KETONES,URINE (UA) NEGATIVE (NEGATIVE); LEUKOCYTE ESTERASE, URINE NEGATIVE (NEGATIVE); NITRITE,URINE NEGATIVE (NEGATIVE); OCCULT BLOOD,URINE NEGATIVE (NEGATIVE); PROTEIN,URINE NEGATIVE (NEGATIVE); UROBILINOGEN,URINE 0.2 (NORMAL) E.U./dL (NORMAL)
[2019-01-26 09:22] LABS: CLARITY,URINE CLEAR (CLEAR)
[2019-01-26 09:24] LABS: HCG UR QUAL NEGATIVE
[2019-01-26] MEDS ORDERED: PROMETHAZINE INJ 12.5 MG in SODIUM CHLORIDE 0.9% 50 ML IV STA (09:25)
[2019-01-26] MEDS ORDERED: FAMOTIDINE 20 MG/2 ML VIAL IVP STA (09:25)
[2019-01-26] MEDS ORDERED: MORPHINE 10 MG/ML VIAL IVP STA (09:25)
[2019-01-26] MEDS ORDERED: SODIUM CHLORIDE 0.9% 1,000 ML IV ONE (09:25)
[2019-01-26 09:43] LABS: BASOPHILS # (AUTO) 0.1 10^3/uL (0.0-0.1); BASOPHILS % (AUTO) 0.8 %; EOSINOPHILS # (AUTO) 0.2 10^3/uL (0.0-0.7); EOSINOPHILS % (AUTO) 2.8 %; HGB - HEMOGLOBIN 13.2 g/dL (12.0-16.0); LYMPHOCYTES # (AUTO) 2.8 10^3/uL (1.5-3.5); MEAN CORPUSCULAR HEMOGLOBIN 27.8 pg (27.0-31.0); MEAN CORPUSCULAR HGB CONC 32.7 g/dL (32.0-36.0); MEAN CORPUSCULAR VOLUME 85.1 fL (81.0-99.0); MEAN PLATELET VOLUME 9.6 fL (7.9-10.8); MONOCYTES # (AUTO) 0.5 10^3/uL (0.0-1.0); MONOCYTES % (AUTO) 7.4 %; NEUTROPHILS # (AUTO) 3.6 10^3/uL (1.5-6.6); NEUTROPHILS % (AUTO) 49.7 %; PLT - PLATELET COUNT 313 10^3/uL (130-450); RED BLOOD COUNT 4.75 10^6/uL (4.20-5.40); RED CELL DISTRIBUTION WIDTH 12.5 % (12.0-15.0); WHITE BLOOD COUNT 7.3 x10^3/uL (4.8-10.8)
[2019-01-26 09:54] LABS: ALBUMIN 4.1 g/dL (3.2-5.5); ALBUMIN/GLOBULIN RATIO 1.4 (1.0-2.2); BILIRUBIN,TOTAL 0.7 mg/dL (0.2-1.0); CALCIUM 9.2 mg/dL (8.5-10.3); CREATININE 0.7 mg/dL (0.4-1.0); TOTAL PROTEIN 7.1 g/dL (6.7-8.2)
[2019-01-26] MEDS ORDERED: MAG HYDROX/AL HYDROX/SIMETH 30 ML UDC PO STA (10:55)
[2019-01-26] MEDS ORDERED: LIDOCAINE VISCOUS 2% 15 ML UDC MM STA (10:55)
[2019-01-26] MEDS ORDERED: HYDROmorphone 1 MG/ML CARPUJECT IVP STA (10:55)
--- NOTE | 2019-01-26 11:04 | Ultrasound Report ---
Reason: 4 days RUQ abd pain Procedure Date: 01/26/2019 Accession Number: [id number] / [id number] Procedure: US - Abdomen Limited CPT Code: FULL RESULT: EXAM: ABDOMEN ULTRASOUND LIMITED, RUQ EXAM DATE: 01/26/2019 10:47 AM. CLINICAL HISTORY: 4 days RUQ abd pain. COMPARISON: ABDOMEN LIMITED 03/25/2017 8:45 PM. TECHNIQUE: Real-time scanning was performed with static images obtained. FINDINGS: Liver: Heterogeneous areas of increased echogenicity. No focal liver masses are seen. Right liver measures 20.3 cm. Main portal vein flow: Hepatopetal. Gallbladder: Normal. No stones, wall thickening, or sonographic Esteban's sign. Biliary System: CBD measures 3 mm. No intrahepatic or extrahepatic ductal dilatation. Other: Right kidney appears unremarkable without hydronephrosis. IMPRESSION: 1. Hepatomegaly with suggestion of heterogeneous areas of hepatic steatosis. 2. No cholelithiasis or evidence for acute cholecystitis. 3. No biliary dilation. [facility]
--- NOTE | 2019-01-26 11:57 | ED Physician Documentation ---
PD HPI ABD PAIN - Stated complaint Stated Complaint: ABD PX/WHEN EATING - Chief complaint Chief Complaint: Abd Pain - History obtained from History obtained from: Patient - History of Present Illness Timing - onset: How many days ago (few) Timing - duration: Days (few) Timing - details: Gradual onset, Still present, Waxing and waning Quality: Cramping, Aching, Pain Location: RUQ, Epigastric Radiation: No: Chest, Upper back Improved by: Meds (antacids) Worsened by: Eating Associated symptoms: Nausea. No: Fever, Diarrhea, Melena Similar symptoms before: Diagnosis (gastritis, no prior gallbladder nor pancreatic problems.) Review of Systems Constitutional: denies: Fever, Chills Nose: denies: Rhinorrhea / runny nose, Congestion Throat: denies: Sore throat Respiratory: denies: Cough GI: reports: Abdominal Pain, Nausea. denies: Vomiting, Diarrhea, Bloody / black stool : denies: Dysuria, Frequency Musculoskeletal: denies: Back pain Neurologic: denies: Generalized weakness PD PAST MEDICAL HISTORY - Past Medical History Cardiovascular: None Respiratory: None Neuro: None Endocrine/Autoimmune: None GI: GERD EDITOR INDEX: Endometriosis, Ovarian cysts : None HEENT: Other Psych: None Musculoskeletal: Other Derm: None - Past Surgical History Past Surgical History: Yes General: Colonoscopy, EGD Ortho: Arthroscopic surgery /EDITOR INDEX: Hysterectomy, Other - Present Medications Home Medications: Ambulatory Orders Medication Instructions Recorded Confirmed Omeprazole 20 mg PO DAILY 06/17/18 06/17/18 Hydrocodone/Acetaminophen 1 each PO Q6H PRN #14 tablet 01/26/19 [Hydrocodon-Acetaminophen 5-325] Lidocaine Viscous 2% [Xylocaine 5 ml PO Q4H PRN #100 ml 01/26/19 Viscous 2%] Promethazine [Phenergan] 25 mg PO Q6H PRN #10 tab 01/26/19 Sucralfate [Carafate] 1 gm PO TID #30 tablet 01/26/19 - Allergies Allergies/Adverse Reactions: Allergies Allergy/AdvReac Type Severity Reaction Status Date / Time acetaminophen [From Percocet] Allergy Itching Verified 10/30/18 07:29 latex Allergy Hives Verified 10/30/18 07:29 oxycodone [From Percocet] Allergy Itching Verified 10/30/18 07:29 prochlorperazine Allergy Unknown Verified 10/30/18 07:29 [From Compazine] tramadol Allergy Unknown Verified 01/26/19 09:06 - Social History Does the pt smoke?: No Smoking Status: Never smoker Does the pt drink ETOH?: Yes Does the pt have substance abuse?: No - Immunizations Immunizations are current?: Yes - POLST Patient has POLST: No PD ED PE NORMAL - Vitals Vital signs reviewed: Yes - General General: Alert and oriented X 3, Well developed/nourished - HEENT HEENT: Pharynx benign - Neck Neck: Supple, no meningeal sign, No adenopathy - Cardiac Cardiac: RRR, No murmur - Respiratory Respiratory: Clear bilaterally - Abdomen Abdomen: Normal bowel sounds, Soft, Non distended, No organomegaly, Other (tender RUQ and epigastric area without percussion nor rebound, but some local guarding. ) - Rectal Rectal: Deferred - Back Back: No CVA TTP - Derm Derm: Normal color, Warm and dry - Neuro Neuro: Alert and oriented X 3, No motor deficit, Normal speech Results - Vitals Vitals: Vital Signs - 24 hr 01/26/19 01/26/19 01/26/19 09:04 09:52 11:12 Temperature 36.4 C L Heart Rate 62 67 83 Respiratory 20 18 18 Rate Blood Pressure 124/89 H 143/90 H 128/74 O2 Saturation 100 98 97 01/26/19 12:11 Temperature 36.4 C L Heart Rate 66 Respiratory 18 Rate Blood Pressure 134/97 H O2 Saturation 98 Oxygen O2 Source Room air - Labs Labs: Laboratory Tests 01/26/19 01/26/19 01/26/19 09:13 09:34 09:34 WBC 7.3 RBC 4.75 Hgb 13.2 Hct 40.4 MCV 85.1 MCH 27.8 MCHC 32.7 RDW 12.5 Plt Count 313 MPV 9.6 Neut # (Auto) 3.6 Lymph # (Auto) 2.8 [place] # (Auto) 0.5 Eos # (Auto) 0.2 Baso # (Auto) 0.1 Absolute Nucleated RBC 0.00 Nucleated RBC % 0.0 Sodium 139 Potassium 3.7 Chloride 103 Carbon Dioxide 24 Anion Gap 12.0 BUN 11 Creatinine 0.7 Estimated GFR (MDRD) 102 Glucose 101 H Calcium 9.2 Total Bilirubin 0.7 AST 43 H ALT 52 Alkaline Phosphatase 78 Total Protein 7.1 Albumin 4.1 Globulin 3.0 Albumin/Globulin Ratio 1.4 Lipase 28 Urine Color YELLOW Urine Clarity CLEAR Urine pH 7.0 Ur Specific [place] 1.020 Urine Protein NEGATIVE Urine Glucose (UA) NEGATIVE Urine Ketones NEGATIVE Urine Occult Blood NEGATIVE Urine Nitrite NEGATIVE Urine Bilirubin NEGATIVE Urine Urobilinogen 0.2 (NORMAL) Ur Leukocyte Esterase NEGATIVE Ur Microscopic Review NOT INDICATED Urine Culture Comments NOT INDICATED Urine HCG, Qual NEGATIVE - Rads (name of study) RUQ abd U/S Radiology: Prelim report reviewed (normal), See rad report PD MEDICAL DECISION MAKING - ED course Complexity details: reviewed results (does not seem biliary. Presume gasritis/duodenitis. ), considered differential (Upper abdominal pain and worse with eating but also tender in the right upper quadrant so can get labs and ultrasound to verify not pancreatic or gallbladder.), d/w patient Departure - Departure Disposition: 01 Home, Self Care Clinical Impression: Upper abdominal pain Gastritis Qualifiers: Gastritis type: unspecified gastritis Chronicity: acute Gastritis bleeding: without bleeding Qualified Code(s): K29.00 - Acute gastritis without bleeding Clinical Impression: (Ruled Out): Cholelithiasis Condition: Stable Record reviewed to determine appropriate education?: Yes Instructions: ED Gastritis Follow-Up: Alfie Starks ARNP [Primary Care Provider] - Prescriptions: Hydrocodone/Acetaminophen [Hydrocodon-Acetaminophen 5-325] 1 each PO Q6H PRN #14 tablet PRN Reason: pain Lidocaine Viscous 2% [Xylocaine Viscous 2%] 5 ml PO Q4H PRN #100 ml PRN Reason: Pain Promethazine [Phenergan] 25 mg PO Q6H PRN #10 tab PRN Reason: Nausea / Vomiting Sucralfate [Carafate] 1 gm PO TID #30 tablet Comments: Increase your omeprazole to twice per day for 10 days. Add in sucralfate to coat the stomach several times a day as well. Promethazine if needed for nausea. Add Tylenol or hydrocodone if needed for pain. Do not take any NSAIDs. Continue your other medications. Recheck if not improving well over the next couple of days. Add Mylanta/antacid along with some lidocaine as needed for stomach pain periodically as well. Discharge Date/Time: 01/26/19 12:12
[2019-01-26 12:12] VITALS: BP 134/97
== END 2019-01-26 12:12 | disposition home or self-care (01) ==
LOC: ED 08:58
DX: K29.00 Acute gastritis without bleeding (principal)
CPT/HCPCS: 36415; 76705; 80053; 81003; 81025; 83690; 85025; 96361; 96365; 96375; 99284; A9270; J1170; J7040; 81001; 87086

== ENCOUNTER 2019-02-08 13:28 | Emergency (ER) | payer OTHER ==
[2019-02-08 13:36] VITALS: BP 151/104
[2019-02-08] MEDS ORDERED: ONDANSETRON 4 MG/2 ML VIAL IM STA (13:49)
[2019-02-08] MEDS ORDERED: HYDROmorphone 1 MG/ML CARPUJECT IM STA (13:49)
--- NOTE | 2019-02-08 13:53 | ED Physician Documentation ---
PD HPI ABD PAIN - Stated complaint Stated Complaint: N/V - Chief complaint Chief Complaint: Abd Pain - History obtained from History obtained from: Patient - History of Present Illness Timing - onset: Today (23-year-old woman with chronic gastritis and esophagitis presents with right upper quadrant pain radiating to the central abdomen starting today similar to prior episodes of gastritis. She does get relief with lidocaine but it is fleeting. She has been taking Prilosec 40 mg a day and also sucralfate as well. She says her last upper endoscopy was early this year and showed stage III esophagitis and ulcers. She does note some occasionally dark and tarry stools and regional slight bright red blood per rectum but that is almost subacute. She does smoke marijuana occasionally, but she estimates only about 3 times a month. She has a history of a hysterectomy and a couple of surgeries for endometriosis.) Review of Systems Constitutional: reports: Reviewed and negative. 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 cysts : None HEENT: Other Psych: None Musculoskeletal: Other Derm: None - Past Surgical History Past Surgical History: Yes General: Colonoscopy, EGD Ortho: Arthroscopic surgery /PLASTICS SEASONER OPERATOR: Hysterectomy, Other - Present Medications Home Medications: Ambulatory Orders Medication Instructions Recorded Confirmed Omeprazole 20 mg PO DAILY 06/17/18 06/17/18 Lidocaine Viscous 2% [Xylocaine 5 ml PO Q4H PRN #100 ml 01/26/19 Viscous 2%] Promethazine [Phenergan] 25 mg PO Q6H PRN #10 tab 01/26/19 Sucralfate [Carafate] 1 gm PO TID #30 tablet 01/26/19 Famotidine [Pepcid] 20 mg PO QPM #60 tablet 02/08/19 Fluoxetine HCl [Prozac] 20 mg PO DAILY #60 capsule 02/08/19 Maalox/Lidocaine 10 ml PO Q4H PRN #150 ml 02/08/19 Omeprazole 20 mg PO BID #120 capsule. 02/08/19 Sucralfate [Carafate] 1 gm PO ACHS #120 tablet 02/08/19 - Allergies Allergies/Adverse Reactions: Allergies Allergy/AdvReac Type Severity Reaction Status Date / Time acetaminophen [From Percocet] Allergy Itching Verified 02/08/19 13:36 latex Allergy Hives Verified 02/08/19 13:36 oxycodone [From Percocet] Allergy Itching Verified 02/08/19 13:36 prochlorperazine Allergy Unknown Verified 02/08/19 13:36 [From Compazine] tramadol Allergy Unknown Verified 02/08/19 13:36 - Social History Does the pt smoke?: No Smoking Status: Never smoker Does the pt drink ETOH?: Yes Does the pt have substance abuse?: No - Immunizations Immunizations are current?: Yes - POLST Patient has POLST: No PD ED PE NORMAL - Vitals Vital signs reviewed: Yes - General General: Alert and oriented X 3, No acute distress - Neck Neck: Supple, no meningeal sign, No bony TTP - Cardiac Cardiac: RRR, No murmur - Respiratory Respiratory: No respiratory distress, Clear bilaterally - Abdomen Abdomen: Other (Slight upper abdominal tenderness without surgical signs) - Extremities Extremities: No edema, No calf tenderness / cord - Neuro Neuro: Alert and oriented X 3, Normal speech Results - Vitals Vitals: Vital Signs - 24 hr 02/08/19 13:34 Temperature 36.6 C Heart Rate 66 Respiratory 20 Rate Blood Pressure 151/104 H O2 Saturation 99 Oxygen O2 Source Room air - Labs Labs: Laboratory Tests 02/08/19 02/08/19 02/08/19 13:54 14:32 14:32 WBC 8.4 RBC 4.53 Hgb 12.9 Hct 38.6 MCV 85.2 MCH 28.5 MCHC 33.4 RDW 12.4 Plt Count 326 MPV 9.8 Neut # (Auto) 3.7 Lymph # (Auto) 3.9 H [place] # (Auto) 0.5 Eos # (Auto) 0.2 Baso # (Auto) 0.1 Absolute Nucleated RBC 0.00 Nucleated RBC % 0.0 Sodium 137 Potassium 3.5 Chloride 102 Carbon Dioxide 24 Anion Gap 11.0 BUN 15 Creatinine 0.8 Estimated GFR (MDRD) 87 L Glucose 99 Calcium 9.1 Total Bilirubin 0.6 AST 31 ALT 34 Alkaline Phosphatase 75 Total Protein 7.3 Albumin 4.5 Globulin 2.8 Albumin/Globulin Ratio 1.6 Lipase 32 Urine Color YELLOW Urine Clarity CLEAR Urine pH 6.5 Ur Specific [place] 1.020 Urine Protein NEGATIVE Urine Glucose (UA) NEGATIVE Urine Ketones NEGATIVE Urine Occult Blood NEGATIVE Urine Nitrite NEGATIVE Urine Bilirubin NEGATIVE Urine Urobilinogen 0.2 (NORMAL) Ur Leukocyte Esterase NEGATIVE Ur Microscopic Review NOT INDICATED Urine Culture Comments NOT INDICATED Urine Opiates Screen NEGATIVE Ur Oxycodone Screen NEGATIVE Urine Methadone Screen NEGATIVE Ur Propoxyphene Screen NEGATIVE Ur Barbiturates Screen NEGATIVE Ur Tricyclics Screen NEGATIVE Ur Phencyclidine Scrn NEGATIVE Ur Amphetamine Screen NEGATIVE U Methamphetamines Scrn NEGATIVE U Benzodiazepines Scrn NEGATIVE Urine Cocaine Screen NEGATIVE U Cannabinoids Screen POSITIVE H PD MEDICAL DECISION MAKING - ED course Complexity details: reviewed old records ED course: Had an ultrasound less than 2 weeks ago without evidence of cholelithiasis. She has relatively frequent emergency department visits, 15 this year. Her H&H is fine, but it is actually lower than her usual by a slight amount. We need to increase her medical management and an H2 kayli at night was added, discussed dietary modification, she was still drinking a decent amount of caffeine. Of note the symptoms got worse about 2 months ago when she stopped Prozac, since SSRIs are 1 of the treatments for refractory GERD we will start this again. Departure - Departure Disposition: Home, Self Care Clinical Impression: Gastritis Qualifiers: Gastritis type: unspecified gastritis Chronicity: chronic Gastritis bleeding: with bleeding Qualified Code(s): K29.51 - Unspecified chronic gastritis with b leeding Condition: Good Record reviewed to determine appropriate education?: Yes Instructions: ED PUD Vs Gastritis Prescriptions: Famotidine [Pepcid] 20 mg PO QPM #60 tablet Fluoxetine HCl [Prozac] 20 mg PO DAILY #60 capsule Maalox/Lidocaine 10 ml PO Q4H PRN #150 ml PRN Reason: abd pain Omeprazole 20 mg PO BID #120 capsule. Sucralfate [Carafate] 1 gm PO ACHS #120 tablet Comments: As discussed, you do fit into the criteria of refractory gastroesophageal reflux disease. Talk with your doctor about repeat upper endoscopy to rule out Fall's esophagus. Return for new or worsening symptoms. Forms: Activity restrictions Discharge Date/Time: 02/08/19 15:06
[2019-02-08 14:10] LABS: BILIRUBIN,URINE NEGATIVE (NEGATIVE); GLUCOSE, URINE (UA) NEGATIVE (NEGATIVE); KETONES,URINE (UA) NEGATIVE (NEGATIVE); LEUKOCYTE ESTERASE, URINE NEGATIVE (NEGATIVE); MUDS CUTOFF CONCENTRATIONS CUTOFF CONC BELOW:; NITRITE,URINE NEGATIVE (NEGATIVE); OCCULT BLOOD,URINE NEGATIVE (NEGATIVE); PH,URINE 6.5 PH (5.0-7.5); PROTEIN,URINE NEGATIVE (NEGATIVE); UROBILINOGEN,URINE 0.2 (NORMAL) E.U./dL (NORMAL)
[2019-02-08 14:24] LABS: CLARITY,URINE CLEAR (CLEAR)
[2019-02-08 14:32] LABS: AMPHETAMINE SCREEN,URINE NEGATIVE (NEGATIVE); BENZODIAZEPINES SCREEN, URINE NEGATIVE (NEGATIVE); COCAINE SCREEN URINE NEGATIVE (NEGATIVE); METHADONE SCREEN, URINE NEGATIVE (NEGATIVE); METHAMPHETAMINES SCREEN, URINE NEGATIVE (NEGATIVE); OPIATE SCREEN, URINE NEGATIVE (NEGATIVE); OXYCODONE SCREEN, URINE NEGATIVE (NEGATIVE); PROPOXYPHENE SCREEN, URINE NEGATIVE (NEGATIVE); TRICYCLIC ANTIDEPRESSANT,URINE NEGATIVE (NEGATIVE)
[2019-02-08 14:39] LABS: BASOPHILS # (AUTO) 0.1 10^3/uL (0.0-0.1); BASOPHILS % (AUTO) 0.7 %; EOSINOPHILS # (AUTO) 0.2 10^3/uL (0.0-0.7); EOSINOPHILS % (AUTO) 2.5 %; HGB - HEMOGLOBIN 12.9 g/dL (12.0-16.0); LYMPHOCYTES # (AUTO) 3.9 10^3/uL (1.5-3.5); LYMPHOCYTES % (AUTO) 46.8 %; MEAN CORPUSCULAR HEMOGLOBIN 28.5 pg (27.0-31.0); MEAN CORPUSCULAR HGB CONC 33.4 g/dL (32.0-36.0); MEAN CORPUSCULAR VOLUME 85.2 fL (81.0-99.0); MEAN PLATELET VOLUME 9.8 fL (7.9-10.8); MONOCYTES # (AUTO) 0.5 10^3/uL (0.0-1.0); MONOCYTES % (AUTO) 5.7 %; NEUTROPHILS # (AUTO) 3.7 10^3/uL (1.5-6.6); NEUTROPHILS % (AUTO) 44.1 %; PLT - PLATELET COUNT 326 10^3/uL (130-450); RED BLOOD COUNT 4.53 10^6/uL (4.20-5.40); RED CELL DISTRIBUTION WIDTH 12.4 % (12.0-15.0); WHITE BLOOD COUNT 8.4 x10^3/uL (4.8-10.8)
[2019-02-08 14:53] LABS: ALBUMIN 4.5 g/dL (3.2-5.5); ALBUMIN/GLOBULIN RATIO 1.6 (1.0-2.2); BILIRUBIN,TOTAL 0.6 mg/dL (0.2-1.0); CALCIUM 9.1 mg/dL (8.5-10.3); CREATININE 0.8 mg/dL (0.4-1.0); TOTAL PROTEIN 7.3 g/dL (6.7-8.2)
== END 2019-02-08 15:06 | disposition home or self-care (01) ==
LOC: ED 13:28
DX: K29.51 Unspecified chronic gastritis with bleeding (principal)
CPT/HCPCS: 36415; 80053; 81003; 83690; 85025; 96372; 99284; J1170; 80306; 81001; 87086

== ENCOUNTER 2019-03-04 08:00 | Outpatient (CLI) | payer OTHER | END 2019-03-04 23:59 | disposition home or self-care (01) | LOC: LAB.R 08:00 | PROVIDERS: ATTEND Physician Assistant | DX: R19.7 Diarrhea, unspecified (principal) | CPT/HCPCS: 81599; 83993; 87177; 87209; 87329; 87493 ==

== ENCOUNTER 2019-03-14 21:20 | Emergency (ER) | payer OTHER ==
--- NOTE | 2019-03-14 21:36 | ED Physician Documentation ---
History of Present Illness - Stated complaint Stated Complaint: DIZZY/NAUSEA - Chief complaint Chief Complaint: Abd Pain - History obtained from History obtained from: Patient, EMS - History of Present Illness Timing: Today Pain level now: 7 Improved by: nothing Worsened by: any PO intake - Additonal information Additional information: BIBA. patient was at work tonight at [employer] when she developed nausea and vomiting. She says she has been "sick the past 2 months with esophagitis", has GI in [place] with upcoming upper endoscopy (has had them before) in a few days. She became lightheaded while having these symptoms and ambulating, became weak and sat down, had brief syncopal episode without injury, rapidly returned to baseline LOC within less than a minute. This is her 16th ED visit over past 12 months (, [facility]) Review of Systems Constitutional: reports: Sweats. denies: Fever, Chills Eyes: reports: Reviewed and negative Ears: reports: Reviewed and negative Nose: reports: Reviewed and negative Cardiac: reports: Reviewed and negative Respiratory: reports: Reviewed and negative GI: reports: Abdominal Pain, Nausea, Vomiting. denies: Diarrhea : denies: Dysuria, Frequency Skin: reports: Reviewed and negative Musculoskeletal: reports: Reviewed and negative Neurologic: reports: Generalized weakness (immediately preceding syncope but resolved), Syncope. 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 02/08/19 Sucralfate [Carafate] 1 gm PO ACHS #120 tablet 02/08/19 - Allergies Allergies/Adverse Reactions: Allergies Allergy/AdvReac Type Severity Reaction Status Date / Time acetaminophen [From Percocet] Allergy Itching Verified 03/14/19 21:26 latex Allergy Hives Verified 03/14/19 21:26 oxycodone [From Percocet] Allergy Itching Verified 03/14/19 21:26 prochlorperazine Allergy Unknown Verified 03/14/19 21:26 [From Compazine] tramadol Allergy Unknown Verified 03/14/19 21:26 - Social History Does the pt smoke?: No Smoking Status: Never smoker Does the pt drink ETOH?: Yes Does the pt have substance abuse?: No - Immunizations Immunizations are current?: Yes - POLST Patient has POLST: No PD ED PE NORMAL - Vitals Vital signs reviewed: Yes - General General: Alert and oriented X 3, Well developed/nourished, Other (appears uncomfortable with episode of emesis during H+P) - Neck Neck: Supple, no meningeal sign - Cardiac Cardiac: RRR, No murmur - Respiratory Respiratory: No respiratory distress, Clear bilaterally - Abdomen Abdomen: Normal bowel sounds, Soft, Non tender, Non distended - Back Back: No CVA TTP - Derm Derm: Normal color, Warm and dry Results - Vitals Vitals: Vital Signs - 24 hr 03/14/19 03/14/19 03/14/19 21:26 21:32 23:55 Temperature 36.6 C 36.4 C L Heart Rate 69 83 78 Respiratory 18 18 22 Rate Blood Pressure 140/100 H 130/86 H 131/106 H O2 Saturation 97 97 99 03/15/19 01:09 Temperature 36.5 C Heart Rate 76 Respiratory 18 Rate Blood Pressure 128/96 H O2 Saturation 100 Oxygen O2 Source Room air - Labs Labs: Laboratory Tests 03/14/19 03/14/19 03/14/19 22:00 22:00 22:39 WBC 10.4 RBC 4.89 Hgb 13.5 Hct 40.4 MCV 82.6 MCH 27.6 MCHC 33.4 RDW 13.0 Plt Count 354 MPV 9.8 Neut # (Auto) 6.6 Lymph # (Auto) 2.9 [place] # (Auto) 0.7 Eos # (Auto) 0.2 Baso # (Auto) 0.1 Absolute Nucleated RBC 0.00 Nucleated RBC % 0.0 Sodium 140 Potassium 3.1 L Chloride 103 Carbon Dioxide 24 Anion Gap 13.0 BUN 12 Creatinine 0.9 Estimated GFR (MDRD) 76 L Glucose 117 H Calcium 9.6 Total Bilirubin 0.4 AST 32 ALT 31 Alkaline Phosphatase 88 Total Protein 8.0 Albumin 5.0 Globulin 3.0 Albumin/Globulin Ratio 1.7 Lipase 27 Urine Color YELLOW Urine Clarity CLOUDY Urine pH 5.0 Ur Specific [place] >=1.030 H Urine Protein TRACE Urine Glucose (UA) NEGATIVE Urine Ketones TRACE Urine Occult Blood NEGATIVE Urine Nitrite NEGATIVE Urine Bilirubin NEGATIVE Urine Urobilinogen 0.2 (NORMAL) Ur Leukocyte Esterase NEGATIVE Urine RBC None Seen Urine WBC 0-3 Ur Squamous Epith Cells RARE Squamous Amorphous Sediment Marked Urine Bacteria Rare Ur Microscopic Review INDICATED Urine Culture Comments NOT INDICATED Urine HCG, Qual NEGATIVE PD MEDICAL DECISION MAKING - ED course Complexity details: reviewed old records, reviewed results, re-evaluated patient, considered differential, d/w patient ED course: On reevaluation after tests resulted and IV phenergan and fluids given, patient is AAOx3 and in NAD, reports resolution of symptoms Departure - Departure Disposition: 01 Home, Self Care Clinical Impression: Hypokalemia Vomiting Qualifiers: Vomiting type: unspecified Vomiting Intractability: non-intractable Nausea presence: with nausea Qualified Code(s): R11.2 - Nausea with vomiting, unspecified Condition: Good Instructions: ED Abdominal Pain Unkn Cause, ED Potassium Deficiency, ED Nausea Vomiting Follow-Up: lAfie Starks ARNP [Primary Care Provider] - Discharge Date/Time: 03/15/19 01:10
[2019-03-14] MEDS ORDERED: SODIUM CHLORIDE 0.9% 1,000 ML IV STA (21:51)
[2019-03-14] MEDS ORDERED: PROMETHAZINE INJ 25 MG in SODIUM CHLORIDE 0.9% 50 ML IV STA (21:51)
[2019-03-14 22:07] LABS: BASOPHILS # (AUTO) 0.1 10^3/uL (0.0-0.1); BASOPHILS % (AUTO) 0.6 %; EOSINOPHILS # (AUTO) 0.2 10^3/uL (0.0-0.7); EOSINOPHILS % (AUTO) 1.7 %; HGB - HEMOGLOBIN 13.5 g/dL (12.0-16.0); LYMPHOCYTES # (AUTO) 2.9 10^3/uL (1.5-3.5); LYMPHOCYTES % (AUTO) 27.9 %; MEAN CORPUSCULAR HEMOGLOBIN 27.6 pg (27.0-31.0); MEAN CORPUSCULAR HGB CONC 33.4 g/dL (32.0-36.0); MEAN CORPUSCULAR VOLUME 82.6 fL (81.0-99.0); MEAN PLATELET VOLUME 9.8 fL (7.9-10.8); MONOCYTES # (AUTO) 0.7 10^3/uL (0.0-1.0); MONOCYTES % (AUTO) 6.8 %; NEUTROPHILS # (AUTO) 6.6 10^3/uL (1.5-6.6); NEUTROPHILS % (AUTO) 62.7 %; PLT - PLATELET COUNT 354 10^3/uL (130-450); RED BLOOD COUNT 4.89 10^6/uL (4.20-5.40); WHITE BLOOD COUNT 10.4 x10^3/uL (4.8-10.8)
[2019-03-14 22:25] LABS: ALBUMIN/GLOBULIN RATIO 1.7 (1.0-2.2); BILIRUBIN,TOTAL 0.4 mg/dL (0.2-1.0); CALCIUM 9.6 mg/dL (8.5-10.3); CREATININE 0.9 mg/dL (0.4-1.0)
[2019-03-14 23:15] LABS: BILIRUBIN,URINE NEGATIVE (NEGATIVE); GLUCOSE, URINE (UA) NEGATIVE (NEGATIVE); KETONES,URINE (UA) TRACE mg/dL (NEGATIVE); LEUKOCYTE ESTERASE, URINE NEGATIVE (NEGATIVE); NITRITE,URINE NEGATIVE (NEGATIVE); OCCULT BLOOD,URINE NEGATIVE (NEGATIVE); PROTEIN,URINE TRACE mg/dL (NEGATIVE); UROBILINOGEN,URINE 0.2 (NORMAL) E.U./dL (NORMAL)
[2019-03-14 23:17] LABS: CLARITY,URINE CLOUDY (CLEAR)
[2019-03-14 23:18] LABS: HCG UR QUAL NEGATIVE
[2019-03-14 23:29] LABS: BACTERIA,URINE Rare /HPF (None Seen); RBC,URINE None Seen /HPF (0-5); SQUAMOUS EPITHELIAL CELL,UR RARE Squamous (<= Few)
[2019-03-14 23:30] LABS: AMORPHOUS SEDIMENT,UR Marked /LPF
[2019-03-15] MEDS ORDERED: POTASSIUM CHLORIDE 20 MEQ TABLET PO STA (00:42)
[2019-03-15 01:11] VITALS: BP 128/96
== END 2019-03-15 01:10 | disposition home or self-care (01) ==
LOC: EDUNIT# → ED 21:20 → SUPCPDRO 21:20 → ED 03-15 01:10
DX: E87.6 Hypokalemia (principal); R11.2 Nausea with vomiting, unspecified
CPT/HCPCS: 36415; 80053; 81001; 81025; 83690; 85025; 96365; 99284; A9270; J7040; 81003; 87086